=== PATIENT | female | born 1955 | race Caucasian/White ===

== ENCOUNTER 2019-09-20 09:36 | Emergency (ER) | payer BC, SELFPAY ==
--- NOTE | ~2019-09-20 | CT_ITS ---
EXAMINATION: CT lumbar spine wo con DATE: 09/20/2019 10:19 INDICATION: Low back pain TECHNIQUE: Computed tomography (CT) of the lumbar spine was performed without intravenous contrast. T he dose-length product (DLP) was 1084.65 mGy-cm. Iterative reconstruction was used. COMPARISON: MRI, 08/27/2017 FINDINGS: There are changes of posterior fusion at L3-4. There are 6 mm of stable anterolisthesis of L3 on L4. There is chronic severe loss of intervertebral disc space height at T12-L1, L3-4, L4-5, and L5-S1 and moderate loss of disc space height at L1-2 and L2-3. There is no fracture. The vertebral b venkat heights are normal. The prevertebral soft tissues are normal. 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 IMPRESSION: 1. Severe lumbar spondylosis without acute findings or significant interval change. Reviewed, dictated and finalized at location A. EYBALL ASSEMBLER IMPRESSION: 1. Severe lumbar spondylosis without acute findings or significant interval félix nge.
--- NOTE | ~2019-09-20 | XR_ITS ---
EXAMINATION: XR chest 2V DATE: 09/20/2019 10:30 INDICATION: Fall, head injury TECHNIQUE: AP and lateral views of the chest are obtained. COMPARISON: 04/18/2019 FINDINGS: There is mild atelectasis of the left lung base. There is no pleural effusion or pneumothor ax. The cardiomediastinal silhouette is normal. There is severe thoracic spondylosis. There are baumann es of posterior fusion of the lumbar spine as well as left total shoulder arthroplasty. IMPRESSION: 1. No acute cardiopulmonary abnormality. Reviewed, dictated and finalized at location A. UTER SCIENCE TEACHER
--- NOTE | ~2019-09-20 | CT_ITS ---
EXAMINATION: CT brain wo con INDICATION: Head injury COMPARISON: None TECHNIQUE: Standard unenhanced head CT. The dose-length product (DLP) was 605.33 mGy-cm. The mA was a djusted according to patient size. Iterative reconstruction technique was employed. FINDINGS: There is a right parietal scalp hematoma. There is no acute intraparenchymal hemorrhage. No evidence of mass lesion. No evidence of acute infarction. There is mild periventricular and subcorti ari hypodensity probably related to small vessel ischemic disease. There is mild prominence of the castano lci and ventricles related to cerebral atrophy. Intracranial calcified cerebral atherosclerosis is no tu. There are no extra-axial collections. There is no mass effect or midline shift. The orbits and s oft tissues are unremarkable. The visualized sinuses and mastoid air cells are well aerated. IMPRESSION: 1. Right parietal scalp hematoma without acute intracranial abnormality. 2. Age related findings. Reviewed, dictated and finalized at location A. DATION DIRECTOR
--- NOTE | ~2019-09-20 | XR_ITS ---
EXAMINATION: XR hip RT 2V w AP pelvis INDICATION: Right hip pain TECHNIQUE: AP view of the pelvis and three views of the right hip are obtained. COMPARISON: 09/03/2019 FINDINGS: Bone alignment is normal. There is mild osteoarthritis of the hips. No fracture is identifi ed. There are partially imaged changes of lumbar fusion. IMPRESSION: 1. No acute osseous abnormality. Reviewed, dictated and finalized at location A. TATION OPERATOR HELPER
--- NOTE | ~2019-09-20 | CT_ITS ---
EXAMINATION: CT cervical spine wo con DATE: 09/20/2019 10:19 INDICATION: Head injury TECHNIQUE: Computed tomography (CT) of the cervical spine was performed without intravenous contrast. The dose-length product (DLP) was 460.71 mGy-cm. Automated exposure control and iterative reconstruc tion technique were employed. COMPARISON: 07/16/2019 FINDINGS: There is no fracture, dislocation, or subluxation. The vertebral body heights are normal. T here are changes of anterior fusion procedure at C5-6. There is severe loss of intervertebral disc sp suzette height at C6-7 and C7-T1. The odontoid is intact. There is severe uncovertebral joint osteoarthri tis of the lower cervical spine. The prevertebral soft tissues are normal. IMPRESSION: 1. Severe cervical spondylosis without acute findings or significant interval change. Reviewed, dictated and finalized at location A. THERAPIST
[2019-09-20 09:48] LABS: Glucose Point of Care 199 (65-105)
[2019-09-20 09:53] VITALS: BP 158/101; PULSE 88; RESP 16; TEMP 36.2; O2SAT 95
--- NOTE | 2019-09-20 10:01 | ED.AMS ---
HPI - Altered Mental Status General Chief Complaint: Altered Mental Status Stated Complaint: fall/lethargic Time Seen by Provider: 09/20/19 09:43 Related Data Home Medications Medication Instructions Recorded Confirmed alendronate 70 mg tablet 70 mg PO WEEKLY 09/01/19 bupropion HCl 300 mg 24 hr tablet, 300 mg PO QAM 09/01/19 extended release chlorthalidone 25 mg tablet 25 mg PO DAILY 09/01/19 exenatide microspheres 2 mg/0.85 2 mg SUB-Q Q7D 09/01/19 mL subcutaneous auto-injector fluticasone propionate 50 2 spray NASAL DAILY 09/01/19 mcg/actuation nasal spray,suspension gabapentin 300 mg capsule 900 mg PO TID cap 09/01/19 losartan 100 mg tablet 100 mg PO DAILY 09/01/19 paroxetine HCl 40 mg tablet 40 mg PO DAILY 09/01/19 ropinirole 0.5 mg tablet 1 mg PO DAILY tablet 09/01/19 sitagliptin 50 mg-metformin ER 2 tablet PO DAILY tablet 09/01/19 1,000 mg tablet,extended release 24h mp suvorexant 10 mg tablet 10 mg PO ONCE 09/01/19 aspirin [Aspir-81] 09/20/19 Allergies Allergy/AdvReac Type Severity Reaction Status Date / Time adhesive Allergy Intermediate Blister Verified 09/20/19 09:52 benzoin Allergy Intermediate LOCAL Verified 09/20/19 09:52 IRRITATION/ BLISTERS fentanyl Allergy Intermediate Rash Verified 09/20/19 09:52 hydrocodone AdvReac Intermediate Itching Verified 09/20/19 09:52 [facility] Past Medical History Medical History (Updated 09/20/19 @ 09:20 by Valarie Vann NP) Pain of right heel (Acute) Right hip pain (Acute) Scalp cyst (Acute) Small vessel disease (Acute) Social History Social History Smoking status: Never smoker Smoking end date: 10/22/91 Alcohol intake: never Gender identity (if verbalized by the patient): Female Course Vital Signs Vital signs: Vital Signs Temperature 97.2 F L 09/20/19 09:53 Pulse Rate 88 09/20/19 09:53 Respiratory Rate 16 09/20/19 09:53 Blood Pressure 158/101 H 09/20/19 09:53 Pulse Oximetry 95 09/20/19 09:53 Temperature 97.2 F L 09/20/19 09:53 Pulse Rate 88 09/20/19 09:53 Respiratory Rate 16 09/20/19 09:53 Blood Pressure 158/101 H 09/20/19 09:53 Pulse Oximetry 95 09/20/19 09:53 MDM - Altered Mental Status Lab Data Labs: Lab Results 09/20/19 Range/Units 09:45 POC Capillary Glucose 199 H (65-105) mg/dl Discharge Plan Discharge Prescriptions: No Action aspirin [Aspir-81] 81 mg Tablet,Delayed Release (Dr/Ec) RF: 0 chlorthalidone 25 mg tablet 25 mg PO DAILY RF: 0 fluticasone propionate [Flonase Allergy Relief] 50 mcg/actuation spray,suspension 2 spray NASAL DAILY RF: 0 Janumet XR 50-1,000 mg tablet, ER multiphase 24 hr 2 tablet PO DAILY RF: 0 alendronate [Fosamax] 70 mg tablet 70 mg PO WEEKLY RF: 0 paroxetine HCl [Paxil] 40 mg tablet 40 mg PO DAILY RF: 0 losartan 100 mg tablet 100 mg PO DAILY RF: 0 ropinirole 0.5 mg tablet 1 mg PO DAILY RF: 0 Bydureon BCise 2 mg/0.85 mL auto-injector 2 mg SUB-Q Q7D RF: 0 Belsomra 10 mg tablet 10 mg PO ONCE RF: 0 bupropion HCl 300 mg tablet extended release 24 hr 300 mg PO QAM RF: 0 gabapentin 300 mg capsule 900 mg PO TID RF: 0 diclofenac sodium 75 mg tablet,delayed release (DR/EC) 75 mg PO BID Qty: 60 RF: 0 cyclobenzaprine 5 mg tablet 5 mg PO .COMPLEX Qty: 120 RF: 3 oxycodone-acetaminophen 5-325 mg tablet 1 tablet PO Q4H PRN (Reason: pain) Qty: 120 RF: 0
--- NOTE | 2019-09-20 10:02 | ED.FALL ---
HPI - Fall General Chief Complaint: Altered Mental Status Stated Complaint: fall/lethargic Time Seen by Provider: 09/20/19 09:43 Source: patient Mode of arrival: EMS Limitations: no limitations History of Present Illness HPI Narrative: Patient is a 64-year-old female who presents to emergency department for evaluation of head injury that occurred this morning was letting her son's dog out who she lives with tripped falling forward striking the head denies loss of consciousness drove herself to urgent care where she was referred to emergency department for further evaluation patient was placed in C-spine immobilization presents per EMS saline lock left upper extremity. Patient complains of headache neck pain mid and low back pain and right hip pain. Patient denies syncope or loss of consciousness or other complaints. Patient mild pain distress upon arrival resting comfortably though. Patient denies recent illness. Patient has not had anything for her symptoms MD complaint: fall Onset (ago): minute(s) Fall from: standing Fall witnessed: no Place fall occurred: home Loss of consciousness: none Prolonged down time: no Symptoms prior to fall: none Context: tripped/slipped Location of injury: head, back and pelvis Severity: moderate Quality: dull and aching Associated symptoms (after fall): denies, headache and neck pain Related Data Home Medications Medication Instructions Recorded Confirmed alendronate 70 mg tablet 70 mg PO WEEKLY 09/01/19 bupropion HCl 300 mg 24 hr tablet, 300 mg PO QAM 09/01/19 extended release chlorthalidone 25 mg tablet 25 mg PO DAILY 09/01/19 exenatide microspheres 2 mg/0.85 2 mg SUB-Q Q7D 09/01/19 mL subcutaneous auto-injector fluticasone propionate 50 2 spray NASAL DAILY 09/01/19 mcg/actuation nasal spray,suspension gabapentin 300 mg capsule 900 mg PO TID cap 09/01/19 losartan 100 mg tablet 100 mg PO DAILY 09/01/19 paroxetine HCl 40 mg tablet 40 mg PO DAILY 09/01/19 ropinirole 0.5 mg tablet 1 mg PO DAILY tablet 09/01/19 sitagliptin 50 mg-metformin ER 2 tablet PO DAILY tablet 09/01/19 1,000 mg tablet,extended release 24h mp suvorexant 10 mg tablet 10 mg PO ONCE 09/01/19 aspirin [Aspir-81] 09/20/19 cyclobenzaprine 5 mg PO QID 09/20/19 omeprazole 40 mg PO DAILY 09/20/19 09/20/19 Allergies Allergy/AdvReac Type Severity Reaction Status Date / Time adhesive Allergy Intermediate Blister Verified 09/20/19 09:52 benzoin Allergy Intermediate LOCAL Verified 09/20/19 09:52 IRRITATION/ BLISTERS fentanyl Allergy Intermediate Rash Verified 09/20/19 09:52 hydrocodone AdvReac Intermediate Itching Verified 09/20/19 09:52 Review of Systems Review of Systems: Narrative: CONSTITUTIONAL: Denies fever, chills, or sweats. EYES: Denies visual changes, redness, or discharge. ENT: Denies rhinorrhea, congestion, sore throat, or otalgia. CARDIOVASCULAR: Denies chest pain, palpitations, or edema. RESPIRATORY: Denies cough or dyspnea. GASTROINTESTINAL: Denies abdominal pain, nausea, vomiting, rectal bleeding, melena or diarrhea. GENITOURINARY: Denies dysuria or hematuria. SKIN: Denies bruising or swelling MUSCULOSKELETAL: Denies back pain, joint pain, or myalgia. NEUROLOGIC: Denies numbness, dizziness, or weakness. [facility] Past Medical History Medical History Pain of right heel (Acute) Right hip pain (Acute) Scalp cyst (Acute) Small vessel disease (Acute) Family History Family History Father Hypertension Malignant neoplasm of prostate Family history of heart disease in male family member before age 55 Mother Hypertension Family history of diabetes mellitus in first degree relative Family history of heart disease in male family member before age 55 Other Diabetes mellitus Family history of arthritis Family history of cardiovascular disease Family history
[2019-09-20 10:41] LABS: Basophils Absolute Auto 0.1 K/mm3 (0.0-0.1); Basophils Percent Auto 1.1 % (0.2-1.2); Eosinophils Absolute Auto 0.3 K/mm3 (0-0.3); Eosinophils Percent Auto 2.7 % (0-4.4); Hematocrit 40.1 % (37.0-47.0); Hemoglobin 12.5 g/dL (12.0-15.0); Immature Granulocyte Absolute 0.21 K/mm3 (0.00-0.031); Immature Granulocyte Percent A 2.3 % (0-0.5); Lymphocytes Absolute Auto 0.88 K/mm3 (0.9-3.2); Lymphocytes Percent Auto 9.7 % (18.3-44.2); Mean Corpuscular HGB Conc 31.2 g/dl (32-36); Mean Corpuscular Hemoglobin 28.3 pg (26-34); Mean Corpuscular Volume 90.9 fl (80-100); Mean Platelet Volume 9.5 fl (7.4-10.4); Monocytes Absolute Auto 0.6 K/mm3 (0.1-0.6); Monocytes Percent Auto 6.7 % (2.6-8.5); Neutrophils Absolute Auto 7.1 K/mm3 (1.3-6.7); Neutrophils Percent Auto 77.5 % (45.5-73.1); Platelet Count Result 420 k/mm3 (150-375); Red Blood Count 4.41 M/mm3 (4.2-5.4); Red Cell Distribution Width 14.7 % (11.5-14.5); White Blood Count 9.1 K/mm3 (4.5-10.0)
[2019-09-20] MEDS: SODIUM CHLORIDE 0.9% IV 1,000 ML 999 ML IV CONT (10:51)
[2019-09-20 10:53] LABS: Alanine Aminotransferase 32 U/L (4-35); Albumin Level 3.6 g/dL (3.5-5.1); Alkaline Phosphatase 80 U/L (38-126); Aspartate Amino Transferase 35 U/L (14-36); Bilirubin,Total 0.2 mg/dL (0.2-1.3); Blood Urea Nitrogen 12 mg/dL (7-17); Calcium 8.4 mg/dL (8.4-10.2); Carbon Dioxide 24 mmol/L (22-30); Chloride 103 mmol/L (98-107); Estimated Glomerular Filt Rate > 60; Glucose 206 mg/dL (65-105); Potassium 3.9 mmol/L (3.4-5.0); Sodium 134 mmol/L (137-145)
--- NOTE | 2019-09-20 11:31 | ECG_ITS ---
Measurements Intervals [place] Rate: 86 P: 20 SC: 176 QRS: -15 QRSD: 90 T: 11 QT: 361 QTc: 433 Interpretive Statements SINUS RHYTHM LOW QRS VOLTAGE IN PRECORDIAL LEADS VOLTAGE CRITERIA FOR LVH BORDERLINE T WAVE ABNORMALITY- INFERIOR LEADS BORDERLINE ECG Electronically Signed On 09-21-2019 9:04:24 IPHONE DEVELOPER by Alex Steen D.O.
[2019-09-20 12:09] LABS: Add Urine Microscopic? NO; Appearance Urine Clear (Clear); Bilirubin Urine Negative (Negative); Blood Urine Negative (Negative); Color Urine Colorless (Yellow); Glucose Urine UA Negative (Negative); Ketones Urine Negative (Negative); Leukocyte Esterase Ur Negative LEU/UL (Negative); Nitrate Urine Negative (Negative); Protein Urine Negative (Negative); Specific Grav Ur 1.005 (1.001-1.035); Urobilinogen Urine Negative mg/dL (<2.0)
[2019-09-20 14:28] VITALS: BP 143/82; PULSE 90; RESP 18; O2SAT 100
== END 2019-09-20 14:30 | disposition home or self-care (01) ==
PROVIDERS: Emergency Medicine Emergency Medical Services; Emergency Provider Emergency Medicine; PCP Family Medicine
DX: S09.90XA Unspecified injury of head, initial encounter (principal); S16.1XXA Strain of muscle, fascia and tendon at neck level, initial encounter; S39.012A Strain of muscle, fascia and tendon of lower back, initial encounter; M47.812 Spondylosis without myelopathy or radiculopathy, cervical region; M47.816 Spondylosis without myelopathy or radiculopathy, lumbar region; W01.0XXA Fall on same level from slipping, tripping and stumbling without subsequent striking against object, initial encounter
CPT/HCPCS: 36415; 70450; 71046; 72125; 72131; 73502; 73521; 80053; 81003; 85025; 93005; 96361; 96365; 99284; J0131; J7030

== ENCOUNTER 2020-03-26 11:57 | Outpatient (CLI) | payer BC, SELFPAY ==
[2020-03-26 12:26] LABS: Basophils Absolute Auto 0.2 K/mm3 (0.0-0.1); Basophils Percent Auto 1.6 % (0.2-1.2); Eosinophils Absolute Auto 0.7 K/mm3 (0-0.3); Hematocrit 39.8 % (37.0-47.0); Hemoglobin 12.3 g/dL (12.0-15.0); Immature Granulocyte Absolute 0.12 K/mm3 (0.00-0.031); Immature Granulocyte Percent A 1.2 % (0-0.5); Lymphocytes Absolute Auto 1.68 K/mm3 (0.9-3.2); Lymphocytes Percent Auto 16.5 % (18.3-44.2); Mean Corpuscular HGB Conc 30.9 g/dl (32-36); Mean Corpuscular Volume 87.5 fl (80-100); Mean Platelet Volume 9.3 fl (7.4-10.4); Monocytes Percent Auto 9.3 % (2.6-8.5); Neutrophils Absolute Auto 6.6 K/mm3 (1.3-6.7); Neutrophils Percent Auto 64.4 % (45.5-73.1); Platelet Count Result 483 k/mm3 (150-375); Red Blood Count 4.55 M/mm3 (4.2-5.4); Red Cell Distribution Width 16.2 % (11.5-14.5); White Blood Count 10.2 K/mm3 (4.5-10.0)
[2020-03-26 12:43] LABS: Blood Urea Nitrogen 10 mg/dL (7-17); Calcium 9.8 mg/dL (8.4-10.2); Carbon Dioxide 30 mmol/L (22-30); Chloride 101 mmol/L (98-107); Estimated Glomerular Filt Rate > 60; Glucose 168 mg/dL (65-105); Magnesium 1.7 mg/dL (1.6-2.3); Potassium 5.3 mmol/L (3.4-5.0); Sodium 135 mmol/L (137-145)
[2020-03-26 13:14] LABS: Thyroid Stimulating Hormone 0.722 uIU/mL (0.465-4.680)
== END 2020-03-26 11:58 | disposition home or self-care (01) ==
LOC: ANHLAB 11:58
PROVIDERS: PCP Family Medicine; Visit Provider Family Medicine
DX: R25.2 Cramp and spasm (principal); D64.9 Anemia, unspecified; F41.9 Anxiety disorder, unspecified; F32.9 Major depressive disorder, single episode, unspecified
CPT/HCPCS: 36415; 80048; 83735; 84443; 85025

== ENCOUNTER 2020-03-30 15:56 | Outpatient (CLI) | payer BC, SELFPAY ==
[2020-03-30 16:19] LABS: Hematocrit 41.1 % (37.0-47.0); Hemoglobin 12.8 g/dL (12.0-15.0); Mean Corpuscular HGB Conc 31.1 g/dl (32-36); Mean Corpuscular Hemoglobin 27.2 pg (26-34); Mean Corpuscular Volume 87.3 fl (80-100); Mean Platelet Volume 9.3 fl (7.4-10.4); Platelet Count Result 494 k/mm3 (150-375); Red Blood Count 4.71 M/mm3 (4.2-5.4); Red Cell Distribution Width 16.1 % (11.5-14.5); White Blood Count 9.3 K/mm3 (4.5-10.0)
[2020-03-30 16:32] LABS: Blood Urea Nitrogen 13 mg/dL (7-17); Carbon Dioxide 25 mmol/L (22-30); Chloride 102 mmol/L (98-107); Estimated Glomerular Filt Rate > 60; Glucose 163 mg/dL (65-105); Potassium 4.3 mmol/L (3.4-5.0); Sodium 135 mmol/L (137-145)
== END 2020-03-30 15:57 | disposition home or self-care (01) ==
PROVIDERS: PCP Family Medicine; Visit Provider Nurse Practitioner Family
DX: E87.5 Hyperkalemia (principal); D72.829 Elevated white blood cell count, unspecified
CPT/HCPCS: 36415; 80048; 85027

== ENCOUNTER 2020-04-09 09:06 | Outpatient (CLI) | payer BC, SELFPAY ==
[2020-04-09 09:32] LABS: Basophils Absolute Auto 0.1 K/mm3 (0.0-0.1); Basophils Percent Auto 1.1 % (0.2-1.2); Eosinophils Absolute Auto 0.4 K/mm3 (0-0.3); Eosinophils Percent Auto 3.8 % (0-4.4); Hematocrit 38.8 % (37.0-47.0); Hemoglobin 12.2 g/dL (12.0-15.0); Immature Granulocyte Absolute 0.09 K/mm3 (0.00-0.031); Immature Granulocyte Percent A 0.9 % (0-0.5); Lymphocytes Absolute Auto 1.31 K/mm3 (0.9-3.2); Lymphocytes Percent Auto 13.7 % (18.3-44.2); Mean Corpuscular HGB Conc 31.4 g/dl (32-36); Mean Corpuscular Hemoglobin 27.4 pg (26-34); Mean Corpuscular Volume 87.2 fl (80-100); Mean Platelet Volume 9.7 fl (7.4-10.4); Monocytes Absolute Auto 0.8 K/mm3 (0.1-0.6); Monocytes Percent Auto 8.2 % (2.6-8.5); Neutrophils Absolute Auto 6.9 K/mm3 (1.3-6.7); Neutrophils Percent Auto 72.3 % (45.5-73.1); Platelet Count Result 416 k/mm3 (150-375); Red Blood Count 4.45 M/mm3 (4.2-5.4); Red Cell Distribution Width 15.4 % (11.5-14.5); White Blood Count 9.6 K/mm3 (4.5-10.0)
[2020-04-09 09:50] LABS: Blood Urea Nitrogen 14 mg/dL (7-17); Calcium 9.2 mg/dL (8.4-10.2); Carbon Dioxide 27 mmol/L (22-30); Chloride 102 mmol/L (98-107); Estimated Glomerular Filt Rate > 60; Glucose 212 mg/dL (65-105); Potassium 4.2 mmol/L (3.4-5.0); Sodium 134 mmol/L (137-145)
== END 2020-04-09 09:07 | disposition home or self-care (01) ==
LOC: ANHLAB 09:09
PROVIDERS: PCP Family Medicine; Visit Provider Nurse Practitioner Family
DX: E87.1 Hypo-osmolality and hyponatremia (principal); R79.89 Other specified abnormal findings of blood chemistry
CPT/HCPCS: 36415; 80048; 85025

== ENCOUNTER 2020-04-29 15:49 | Outpatient (CLI) | payer BC, SELFPAY ==
[2020-04-29 16:30] LABS: Blood Urea Nitrogen 16 mg/dL (7-17); Calcium 8.4 mg/dL (8.4-10.2); Carbon Dioxide 25 mmol/L (22-30); Chloride 102 mmol/L (98-107); Estimated Glomerular Filt Rate > 60; Glucose 191 mg/dL (65-105); Potassium 4.2 mmol/L (3.4-5.0); Sodium 134 mmol/L (137-145)
== END 2020-04-29 15:50 | disposition home or self-care (01) ==
LOC: ANHLAB 15:50
PROVIDERS: PCP Family Medicine; Visit Provider Nurse Practitioner Family
DX: E87.1 Hypo-osmolality and hyponatremia (principal)
CPT/HCPCS: 36415; 80048

== ENCOUNTER 2020-07-30 11:18 | Emergency (ER) | payer BC, SELFPAY ==
--- NOTE | ~2020-07-30 | XR_ITS ---
XR finger 4th RT min 2V DATE: 07/30/2020 11:41 INDICATION: Injury one month ago. Reinjury yesterday. Pain at proximal interphalangeal joint. TECHNIQUE: 4 views COMPARISON: None FINDINGS: There is soft tissue swelling centered at the proximal interphalangeal joint. There is joint space narrowing and mild spurring at the proximal interphalangeal joint consistent wit h osteoarthritis, as well as a probable degenerative ossicle at the dorsal aspect of the proximal int erphalangeal joint. Several very subtle opaque densities are noted dorsal to the base of the middle phalanx; very small c ortical avulsion fracture is not excluded. No fracture or dislocation, periosteal reaction or bone destruction. IMPRESSION: Soft tissue swelling centered at proximal interphalangeal joint Several very small flakes of density noted dorsal to the base of the middle phalanx; very small corti ari avulsion fracture is not excluded. 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 IMPRESSION: Soft tissue swelling centered at proximal interphalangeal joint Several very small flakes of density noted dorsal to the base of the middle pha lanx; very small cortical avulsion fracture is not excluded. 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
[2020-07-30 11:28] VITALS: BP 140/80; PULSE 101; RESP 20; TEMP 36.7; O2SAT 101
[2020-07-30 11:30] VITALS: BP 118/70; PULSE 100; RESP 20; O2SAT 97
--- NOTE | 2020-07-30 11:31 | ED.GENADULT ---
HPI - General Adult General Chief complaint: Wound/Laceration Stated complaint: right ring finger injury Time Seen by Provider: 07/30/20 11:32 Source: patient Mode of arrival: ambulatory Limitations: no limitations History of Present Illness HPI narrative: Patient is a 64-year-old female who presents with pain to right fourth finger. She reports injuring while carrying garbage can approximately 3 weeks ago and reports reinjury yesterday. She reports pain and swelling. Denies other injury. Reports pain of 7/10 with movement. She denies taking [id number] medications at this time for pain. complaint: Finger injury Related Data Home Medications Medication Instructions Recorded Confirmed aspirin [Aspir-81] 09/20/19 07/01/20 Allergies Allergy/AdvReac Type Severity Reaction Status Date / Time adhesive Allergy Intermediate Blister Verified 07/30/20 11:58 benzoin Allergy Intermediate LOCAL Verified 07/30/20 11:58 IRRITATION/ BLISTERS fentanyl Allergy Intermediate Rash Verified 07/30/20 11:58 hydrocodone AdvReac Intermediate Itching Verified 07/30/20 11:58 Review of Systems Review of Systems: Narrative: CONSTITUTIONAL: Denies fever, chills, or sweats. EYES: Denies visual changes, redness, or discharge. ENT: Denies rhinorrhea, congestion, sore throat, or otalgia. CARDIOVASCULAR: Denies chest pain, palpitations, or edema. RESPIRATORY: Denies cough or dyspnea. GASTROINTESTINAL: Denies abdominal pain, nausea, vomiting, or diarrhea. GENITOURINARY: Denies dysuria or hematuria. SKIN: Denies rash or itching. MUSCULOSKELETAL: Right ring finger pain, swelling, injury NEUROLOGIC: Denies headache, numbness, dizziness, or weakness. PSYCHIATRIC: Denies anxiety or depression. [facility] Past Medical History Medical History (Updated 07/30/20 @ 12:04 by STAN Magallon) Achilles tendinitis of right lower extremity Exostosis of right posterior calcaneus Leg cramping Pain of right heel Restless leg Right hip pain Scalp cyst Small vessel disease Trigger finger of right hand Surgical History Surgical History Achilles rupture, right (10/09/19) Family History Family History Father Hypertension Malignant neoplasm of prostate Family history of heart disease in male family member before age 55 Mother Hypertension Family history of diabetes mellitus in first degree relative Family history of heart disease in male family member before age 55 Other Diabetes mellitus Family history of arthritis Family history of cardiovascular disease Family history of gout Family history of malignant neoplasm Social History Social History (Updated 07/30/20 @ 11:35 by STAN Magallon) Smoking status: Former smoker Smoking end date: 10/22/91 Alcohol intake: never Substance use: never Gender identity (if verbalized by the patient): Female Exam Narrative: Exam Narrative: GENERAL: Well-appearing, well-nourished, and in no acute distress. HEAD: Normocephalic, atraumatic. EYES: EOMI. No redness or drainage. ENT: Mucous membranes pink and moist. CHEST: No respiratory distress. Clear to auscultation. HEART: Regular rate and rhythm. No murmur appreciated. Normal peripheral pulses. EXTREMITIES: Right fourth finger edema, decreased flexion and extension, pain with palpation, good capillary refill SKIN: Warm, dry, no rash. NEURO: No focal deficits. Alert and oriented x3. Gait steady. PSYCH: Normal affect. No signs of depression or anxiety. Course Vital Signs Vital signs: Vital Signs Temperature 36.7 C 07/30/20 11:28 Pulse Rate 101 H 07/30/20 11:28 Respiratory Rate 07/30/20 11:28 Blood Pressure 140/80 07/30/20 11:28 Pulse Oximetry 101 H 07/30/20 11:28 Temperature 36.7 C 07/30/20 11:28 Pulse Rate 101 H 07/30/20 11:28 Respiratory Rate 20 07/30/20 11:28 B
== END 2020-07-30 12:12 | disposition home or self-care (01) ==
PROVIDERS: Emergency Provider Nurse Practitioner; PCP Family Medicine
DX: S63.614A Unspecified sprain of right ring finger, initial encounter (principal); X58.XXXA Exposure to other specified factors, initial encounter; M19.041 Primary osteoarthritis, right hand; Z87.891 Personal history of nicotine dependence
CPT/HCPCS: 29130; 73140; 99213; G0463

== ENCOUNTER 2020-09-25 09:30 | Outpatient (CLI) | payer BC, SELFPAY ==
[2020-09-25 10:38] LABS: Vitamin D 25 Hydroxy 47.3 ng/mL
== END 2020-09-25 09:31 | disposition home or self-care (01) ==
LOC: ANHLAB 09:31
PROVIDERS: PCP Family Medicine; Visit Provider Nurse Practitioner Family
DX: E55.9 Vitamin D deficiency, unspecified (principal); E53.8 Deficiency of other specified B group vitamins
CPT/HCPCS: 36415; 82306; 82607

== ENCOUNTER 2020-10-01 12:27 | Emergency (ER) | payer BC, SELFPAY ==
[2020-10-01] VITALS (7 sets, daily range): BP systolic 99–149; BP diastolic 62–81; PULSE 91–110; RESP 15–21; TEMP 36.6; O2SAT 95–99
--- NOTE | ~2020-10-01 | XR_ITS ---
EXAMINATION: XR chest 1V portable DATE: 10/01/2020 13:37 INDICATION: Productive cough. TECHNIQUE: A single frontal view of the chest was obtained. COMPARISON: Chest 2 views 09/20/2019 FINDINGS: The lung volumes are small. There is mild atelectasis in the lower lung zones. No pleural e ffusion or pneumothorax. The heart size is normal. There are changes of anterior fusion procedure in cervical spine. There is a left shoulder arthroplasty. IMPRESSION: 1. Small lung volumes with mild atelectasis in the lower lung zones. Reviewed, dictated and finalized at location B. PROCESS MILLER HEAD ASSISTANT
--- NOTE | 2020-10-01 12:34 | ECG_ITS ---
Measurements Intervals [place] Rate: 106 P: 25 IA: 159 QRS: -22 QRSD: 83 T: 37 QT: 327 QTc: 435 Interpretive Statements SINUS TACHYCARDIA LOW QRS VOLTAGE IN PRECORDIAL LEADS BORDERLINE R WAVE PROGRESSION, ANTERIOR LEADS BASELINE ARTIFACT- I, III, AVL, V6 ABNORMAL ECG Electronically Signed On 10-01-2020 12:55:04 BELT LOOP CUTTER by Alex Steen D.O.
[2020-10-01 13:02] LABS: Basophils Absolute Auto 0.1 K/mm3 (0.0-0.1); Basophils Percent Auto 0.4 % (0.2-1.2); Eosinophils Absolute Auto 0.2 K/mm3 (0-0.3); Eosinophils Percent Auto 0.7 % (0-4.4); Hematocrit 38.9 % (37.0-47.0); Hemoglobin 12.4 g/dL (12.0-15.0); Immature Granulocyte Percent A 0.8 % (0-0.5); Lymphocytes Absolute Auto 1.54 K/mm3 (0.9-3.2); Lymphocytes Percent Auto 5.9 % (18.3-44.2); Mean Corpuscular HGB Conc 31.9 g/dl (32-36); Mean Corpuscular Hemoglobin 26.3 pg (26-34); Mean Corpuscular Volume 82.4 fl (80-100); Mean Platelet Volume 10.1 fl (7.4-10.4); Monocytes Absolute Auto 1.4 K/mm3 (0.1-0.6); Monocytes Percent Auto 5.3 % (2.6-8.5); Neutrophils Absolute Auto 22.7 K/mm3 (1.3-6.7); Neutrophils Percent Auto 86.9 % (45.5-73.1); Platelet Count Result 516 k/mm3 (150-375); Red Blood Count 4.72 M/mm3 (4.2-5.4); Red Cell Distribution Width 14.7 % (11.5-14.5); White Blood Count 26.1 K/mm3 (4.5-10.0)
[2020-10-01 13:14] LABS: Anion Gap 8 mmol/L (8-16); Blood Urea Nitrogen 12 mg/dL (7-17); Calcium 9.3 mg/dL (8.4-10.2); Carbon Dioxide 25 mmol/L (22-30); Chloride 102 mmol/L (98-107); Estimated CRCL calculation 102 ml/min; Estimated Glomerular Filt Rate > 60; Glucose 185 mg/dL (65-105); Potassium 4.4 mmol/L (3.4-5.0); Sodium 135 mmol/L (137-145)
[2020-10-01 13:55] LABS: Alveolar/Arterial O2 Gradient 38.4 mmHg; Base Excess ABG -1.7 mEq/l (+/-2.0); Device ROOM AIR; Fractional Inspired Oxygen 21 %; HCO3 ABG 21.2 mEq/l (22.0-26.0); Modified Allen's Test Pass; Oxygen Content ABG 16.1 %vol (16.0-22.0); Oxygen Saturation ABG 95.9 % (95.0-100.0); PCO2 ABG 30.3 mmHg (35.0-45.0); PO2 FiO2 Ratio Arterial Blood 3.57 %; Site Drawn RIGHT RADIAL; Total Hemoglobin 12.3 g/dL (12.0-18.0); pH ABG 7.462 (7.350-7.450)
[2020-10-01 14:33] LABS: Alanine Aminotransferase 43 U/L (4-35); Alkaline Phosphatase 78 U/L (38-126); Aspartate Amino Transferase 36 U/L (14-36); Bilirubin,Total 0.4 mg/dL (0.2-1.3)
[2020-10-01 14:54] LABS: Add Urine Microscopic? YES; Appearance Urine Clear (Clear); Bacteria Urine Trace /hpf; Bilirubin Urine Negative (Negative); Blood Urine Negative (Negative); Color Urine Straw (Yellow); Glucose Urine UA Negative (Negative); Ketones Urine Negative (Negative); Leukocyte Esterase Ur Trace LEU/UL (Negative); Nitrate Urine Positive (Negative); Protein Urine Negative (Negative); RBC Urine 0-2 /hpf (0-2); Specific Grav Ur 1.006 (1.001-1.035); Squamous Epithelial Cell Urine Rare /hpf (Few); Urobilinogen Urine Negative mg/dL (<2.0)
--- NOTE | 2020-10-01 16:15 | ED.GENADULT ---
HPI - General Adult General Chief complaint: Shortness of Breath/Dyspnea Stated complaint: SOB Time Seen by Provider: 10/01/20 13:30 Source: patient Limitations: no limitations History of Present Illness HPI narrative: 65 years old white female woke up this morning with gasping for air, sore throat and chest hurting. Improved over the following hours. Patient had COVID-19 exposure 45 days ago. Currently patient denying any chest pain, shortness of breath, fever, chills, headache. Patient lives alone Related Data Home Medications Medication Instructions Recorded Confirmed aspirin [Aspir-81] 09/20/19 09/24/20 Allergies Allergy/AdvReac Type Severity Reaction Status Date / Time adhesive Allergy Intermediate Blister Verified 09/24/20 11:29 benzoin Allergy Intermediate LOCAL Verified 09/24/20 11:29 IRRITATION/ BLISTERS fentanyl Allergy Intermediate Rash Verified 09/24/20 11:29 hydrocodone AdvReac Intermediate Itching Verified 09/24/20 11:29 Review of Systems Review of Systems: Narrative: CONSTITUTIONAL: Denies fever, chills, or sweats. EYES: Denies visual changes, redness, or discharge. ENT: Denies rhinorrhea, congestion, sore throat, or otalgia. CARDIOVASCULAR: Denies chest pain, palpitations, or edema. RESPIRATORY: Denies cough or dyspnea. GASTROINTESTINAL: Denies abdominal pain, nausea, vomiting, or diarrhea. GENITOURINARY: Denies dysuria or hematuria. SKIN: Denies rash or itching. MUSCULOSKELETAL: Denies back pain, joint pain, or myalgia. NEUROLOGIC: Denies headache, numbness, or weakness. PSYCHIATRIC: Denies anxiety or depression. [facility] Past Medical History Medical History (Updated 10/01/20 @ 16:28 by Jordan Shukla MD) Achilles tendinitis of right lower extremity Exostosis of right posterior calcaneus Leg cramping Pain of right heel Restless leg Right hip pain Scalp cyst Small vessel disease Trigger finger of right hand Surgical History Surgical History Achilles rupture, right (10/09/19) Family History Family History Father Hypertension Malignant neoplasm of prostate Family history of heart disease in male family member before age 55 Mother Hypertension Family history of diabetes mellitus in first degree relative Family history of heart disease in male family member before age 55 Other Diabetes mellitus Family history of arthritis Family history of cardiovascular disease Family history of gout Family history of malignant neoplasm Social History Social History Smoking status: Former smoker Smoking end date: 10/22/91 Alcohol intake: never Substance use: never Gender identity (if verbalized by the patient): Female Exam Narrative: Exam Narrative: General appearance: Well-developed, well-nourished, looks lethargic. Does not look in pain or distress. Skin: Normal color Head: Normocephalic, nontraumatic Eyes: Clear conjunctiva ENT: Oropharynx normal, ears normal, nose normal Neck: Supple, nontender Chest and respiratory: Airway patent, no respiratory distress, no accessory muscle use Heart: Regular rate/rhythm Abdomen: Soft, nontender, no organomegaly, quiet bowel sounds Vascular: Normal peripheral pulses, normal capillary refill. Musculoskeletal: Normal range of motion, nontender back Neurologic: Alert and oriented ?3, MORTGAGE CLOSER is normal as tested, no gross motor deficit Course Course Emergency Course: Improving Vital Signs Vital signs: Vital Signs Temperature 36.6 C 10/01/20 12:31 Pulse Rate 110 H 10/01/20 12:31 Respirat
[2020-10-01 23:21] LABS: SARS-CoV-2 RNA PCR Negative
== END 2020-10-01 16:38 | disposition home or self-care (01) ==
PROVIDERS: Emergency Provider Emergency Medicine; PCP Family Medicine
DX: B34.9 Viral infection, unspecified (principal); N39.0 Urinary tract infection, site not specified; Z20.828 Contact with and (suspected) exposure to other viral communicable diseases; D72.829 Elevated white blood cell count, unspecified; R00.0 Tachycardia, unspecified; R94.31 Abnormal electrocardiogram [ECG] [EKG]; G25.81 Restless legs syndrome; Z87.891 Personal history of nicotine dependence
CPT/HCPCS: 36415; 36600; 71045; 80048; 80076; 81001; 82805; 85025; 87040; 87635; 93005; 96365; 99284; C9803; J0696; U0003

== ENCOUNTER 2020-12-29 15:29 | Outpatient (CLI) | payer OTHER, SELFPAY | END 2020-12-29 15:30 | disposition home or self-care (01) | LOC: ANHCOVIDVC 15:29 | PROVIDERS: PCP Family Medicine | DX: Z23 Encounter for immunization (principal) | CPT/HCPCS: 0001A; 91300 ==

== ENCOUNTER 2021-01-19 15:35 | Outpatient (CLI) | payer OTHER, SELFPAY | END 2021-01-19 15:36 | disposition home or self-care (01) | LOC: ANHCOVIDVC 15:35 | PROVIDERS: PCP Family Medicine | DX: Z23 Encounter for immunization (principal) | CPT/HCPCS: 0002A; 91300 ==

== ENCOUNTER 2021-02-14 15:48 | Outpatient (CLI) | payer OTHER, SELFPAY ==
[2021-02-14 16:20] LABS: Anion Gap 9 mmol/L (8-16); Blood Urea Nitrogen 15 mg/dL (7-17); Calcium 8.9 mg/dL (8.4-10.2); Carbon Dioxide 24 mmol/L (22-30); Chloride 100 mmol/L (98-107); Cholesterol 127 mg/dL (0-200); Estimated Glomerular Filt Rate > 60; Glucose 239 mg/dL (65-105); HDL Direct 58 mg/dL; Potassium 4.4 mmol/L (3.4-5.0); Sodium 133 mmol/L (137-145); Triglycerides 243 mg/dL (<150)
[2021-02-14 16:31] LABS: LDL Cholesterol Direct 40 mg/dL
[2021-02-14 16:35] LABS: Hemoglobin A1C 8.2 % (<5.7)
[2021-02-14 17:04] LABS: Creatinine Urine 25.9 mg/dL
[2021-02-14 17:09] LABS: MALB Creatinine Ratio < 23.2 mg/g (0-30); Microalbumin Urine Random < 6.0 mg/L (0-16.7)
== END 2021-02-14 15:49 | disposition home or self-care (01) ==
LOC: ANHLAB 15:50
PROVIDERS: PCP Family Medicine; Visit Provider Family Medicine
DX: E11.42 Type 2 diabetes mellitus with diabetic polyneuropathy (principal); Z13.220 Encounter for screening for lipoid disorders
CPT/HCPCS: 36415; 80048; 80061; 82043; 83036

== ENCOUNTER → 2021-02-18 02:31 | Outpatient (CLI) | payer OTHER, SELFPAY ==
[2021-02-18 19:12] LABS: SARS-CoV-2 RNA PCR Negative
== END ==
PROVIDERS: PCP Family Medicine; Visit Provider Internal Medicine Gastroenterology
DX: Z01.812 Encounter for preprocedural laboratory examination (principal); Z20.822 Contact with and (suspected) exposure to COVID-19
CPT/HCPCS: C9803; U0003; U0005

== ENCOUNTER 2021-02-21 02:20 | Day surgery (SDC) | payer OTHER, SELFPAY ==
[2021-02-15 08:30] VITALS: BMI 30.3
[2021-02-21 07:29] VITALS: BP 158/87; PULSE 100; RESP 20; TEMP 36.1; O2SAT 96; BMI 29.2
[2021-02-21] MEDS: LACTATED RINGERS 1,000 ML 150 ML IV CONT (07:49)
--- NOTE | 2021-02-21 07:49 | WPDANESEPPF ---
Anes - Initial Pre Proc Eval Procedure: Operation Date: 02/21/21 08:30 Proposed Procedures p Colonoscopy - Curt Cadet MD Date/Time: 02/21/21 07:49 Surgeon: Curt Cadet MD Pre Op Diagnosis: ibsd, fecal incontinence Patient Data Age: 65 Gender: F Height: 5 ft 5 in Weight: 79.9 kg Last Vital Signs Temp 36.1 C L 02/21/21 07:29 Pulse 100 02/21/21 07:29 Resp 20 02/21/21 07:29 BP 158/87 H 02/21/21 07:29 Pulse Ox 96 02/21/21 07:29 Allergies Allergy/AdvReac Type Severity Reaction Status Date / Time adhesive Allergy Intermediate Blister Verified 02/21/21 07:26 benzoin Allergy Intermediate LOCAL Verified 02/21/21 07:26 IRRITATION/ BLISTERS fentanyl Allergy Intermediate Rash Verified 02/21/21 07:26 hydrocodone AdvReac Intermediate Itching Verified 02/21/21 07:26 Home Medications Medication Instructions Recorded Confirmed Type aspirin [Aspir-81] 81 mg PO DAILY 09/20/19 02/18/21 History clotrimazole-betamethasone 1 1 applic TOPICAL BID #45 gm 07/16/20 02/18/21 Rx %-0.05 % topical cream diclofenac sodium 1 % topical gel 2 g TOPICAL BID PRN #100 g 09/24/20 02/18/21 Rx omeprazole 40 mg capsule,delayed See Rx Instructions .ROUTE 10/03/20 02/18/21 Rx release .COMPLEX #90 cap fluticasone propionate 50 See Rx Instructions .ROUTE 10/08/20 02/18/21 Rx mcg/actuation nasal .COMPLEX #16 gram spray,suspension sitagliptin 50 mg-metformin ER 2 tablet PO DAILY #180 tablet 11/19/20 02/18/21 Rx 1,000 mg tablet,extended release 24h mp bupropion HCl 300 mg 24 hr tablet, 300 mg PO QAM #90 tablet 11/24/20 02/18/21 Rx extended release losartan 100 mg tablet 100 mg PO DAILY #90 tablet 11/24/20 02/18/21 Rx rosuvastatin 20 mg tablet 20 mg PO DAILY #90 tablet 11/24/20 02/18/21 Rx gabapentin 300 mg capsule 900 mg PO BID #810 cap 12/13/20 02/18/21 Rx ertugliflozin 5 mg tablet 5 mg PO QAM #90 tablet 01/28/21 02/18/21 Rx sumatriptan succinate 50 mg tablet See Rx Instructions PO .COMPLEX #9 02/14/21 02/18/21 Rx tablet ropinirole 1 mg tablet 1 mg PO TID #270 tablet 02/16/21 02/18/21 Rx diclofenac sodium 75 mg 75 mg PO BID #180 tablet 02/17/21 02/18/21 Rx tablet,delayed release amlodipine 5 mg tablet See Rx Instructions .ROUTE 02/18/21 02/18/21 Rx .COMPLEX #90 tablet cyclobenzaprine 5 mg tablet 5 mg PO QID #120 tablet 02/18/21 02/18/21 Rx oxycodone-acetaminophen 5 mg-325 1 tablet PO Q4-6H PRN #150 tablet 02/18/21 02/18/21 Rx mg tablet paroxetine HCl 40 mg tablet 40 mg PO DAILY #90 tablet 02/18/21 02/18/21 Rx sitagliptin 100 mg tablet 100 mg PO DAILY 02/18/21 02/18/21 History Patient hx anesthesia problems: other (low o2) Family hx anesthesia problems: none PMFSH Past Medical History Medical History Achilles tendinitis of right lower extremity Anxiety and depression BMI 29.0-29.9,adult BMI 31.0-31.9,adult Essential (primary) hypertension Exostosis of right posterior calcaneus Irritable bowel syndrome with diarrhea Left shoulder pain Leg cramping Mixed hyperlipidemia Neuropathy Pain of right heel Restless leg Right hip pain Scalp cyst Screening mammogram, encounter for Small vessel disease Trigger finger of right hand Type 2 diabetes mellitus without complications Surgical History Surgical History Achilles rupture, right (10/09/19) Family History Family History Father Hypertension Malignant neoplasm of prostate Family history of heart disease in male family member before age 55 Mother Hypertension Family history of diabetes mellitus in first degree relative Family history of heart disease in male family member before age 55 Other Diabetes mellitus Family history of arthritis Family history of cardiovascular disease Family history of gout Family history of m
[2021-02-21 07:51] LABS: Glucose Point of Care 178 (65-105)
[2021-02-21 08:24] VITALS: BP 116/76; PULSE 87; RESP 18; O2SAT 94
[2021-02-21 08:34] VITALS: BP 113/80; PULSE 83; RESP 21; O2SAT 97
[2021-02-21 08:44] VITALS: BP 122/87; PULSE 83; RESP 21; O2SAT 99
[2021-02-21 09:05] LABS: Glucose Point of Care 130 (65-105)
== END 2021-02-21 08:55 | disposition home or self-care (01) ==
PROVIDERS: PCP Family Medicine; Visit Provider Internal Medicine Gastroenterology
PROC: 0DJD8ZZ Inspection of Lower Intestinal Tract, Via Natural or Artificial Opening Endoscopic (ICD-10-PCS; CPT 45378; principal; 2021-02-21 08:30)
DX: R15.9 Full incontinence of feces (principal); D12.0 Benign neoplasm of cecum; Z90.49 Acquired absence of other specified parts of digestive tract; K57.30 Diverticulosis of large intestine without perforation or abscess without bleeding; K64.8 Other hemorrhoids; K58.0 Irritable bowel syndrome with diarrhea; Z79.82 Long term (current) use of aspirin; F41.8 Other specified anxiety disorders; E78.2 Mixed hyperlipidemia; G25.81 Restless legs syndrome; E11.40 Type 2 diabetes mellitus with diabetic neuropathy, unspecified; Z87.891 Personal history of nicotine dependence; Z98.84 Bariatric surgery status
CPT/HCPCS: 45380; 82948; 88305; J2001; J2704; J7120

== ENCOUNTER 2021-05-20 11:01 | Outpatient (CLI) | payer OTHER, SELFPAY ==
[2021-05-20 11:33] LABS: Basophils Absolute Auto 0.1 K/mm3 (0.0-0.1); Basophils Percent Auto 0.9 % (0.2-1.2); Eosinophils Absolute Auto 0.6 K/mm3 (0-0.3); Eosinophils Percent Auto 4.5 % (0-4.4); Hematocrit 39.5 % (37.0-47.0); Hemoglobin 11.9 g/dL (12.0-15.0); Immature Granulocyte Absolute 0.08 K/mm3 (0.00-0.031); Immature Granulocyte Percent A 0.6 % (0-0.5); Lymphocytes Absolute Auto 1.21 K/mm3 (0.9-3.2); Lymphocytes Percent Auto 9.3 % (18.3-44.2); Mean Corpuscular HGB Conc 30.1 g/dl (32-36); Mean Corpuscular Hemoglobin 24.6 pg (26-34); Mean Corpuscular Volume 81.8 fl (80-100); Mean Platelet Volume 9.2 fl (7.4-10.4); Monocytes Absolute Auto 1.2 K/mm3 (0.1-0.6); Monocytes Percent Auto 9.4 % (2.6-8.5); Neutrophils Absolute Auto 9.8 K/mm3 (1.3-6.7); Neutrophils Percent Auto 75.3 % (45.5-73.1); Platelet Count Result 442 k/mm3 (150-375); Red Blood Count 4.83 M/mm3 (4.2-5.4); Red Cell Distribution Width 20.9 % (11.5-14.5)
[2021-05-20 11:46] LABS: Alanine Aminotransferase 65 U/L (4-35); Albumin Level 3.5 g/dL (3.5-5.1); Alkaline Phosphatase 108 U/L (38-126); Anion Gap 7 mmol/L (8-16); Aspartate Amino Transferase 99 U/L (14-36); Bilirubin,Total 0.4 mg/dL (0.2-1.3); Blood Urea Nitrogen 14 mg/dL (7-17); Calcium 9.4 mg/dL (8.4-10.2); Carbon Dioxide 27 mmol/L (22-30); Chloride 100 mmol/L (98-107); Estimated Glomerular Filt Rate > 60; Glucose 99 mg/dL (65-110); Potassium 4.4 mmol/L (3.4-5.0); Sodium 134 mmol/L (137-145)
[2021-05-20 11:47] LABS: Iron 105 ug/dL (37-170)
[2021-05-20 11:57] LABS: Percent Iron Saturation 31 % (20-50)
[2021-05-20 12:07] LABS: Free T4 Free Thyroxine 1.15 ng/mL (0.78-2.19)
[2021-05-20 12:17] LABS: Thyroid Stimulating Hormone 0.867 uIU/mL (0.465-4.680)
[2021-05-20 14:43] LABS: Vitamin D 25 Hydroxy 39.5 ng/mL
== END 2021-05-20 11:02 | disposition home or self-care (01) ==
LOC: ANHLAB 11:02
PROVIDERS: PCP Family Medicine; Visit Provider Family Medicine
DX: E11.42 Type 2 diabetes mellitus with diabetic polyneuropathy (principal); E61.1 Iron deficiency; E55.9 Vitamin D deficiency, unspecified; K58.2 Mixed irritable bowel syndrome; E53.8 Deficiency of other specified B group vitamins; R30.0 Dysuria
CPT/HCPCS: 36415; 80048; 80076; 82306; 82607; 83540; 83550; 84439; 84443; 85025; 87077; 87086; 87088; 87186

== ENCOUNTER 2021-07-04 14:36 | Outpatient (CLI) | payer OTHER, SELFPAY ==
[2021-07-04 15:47] LABS: Basophils Absolute Auto 0.2 K/mm3 (0.0-0.1); Basophils Percent Auto 1.5 % (0.2-1.2); Eosinophils Absolute Auto 0.4 K/mm3 (0-0.3); Eosinophils Percent Auto 3.7 % (0-4.4); Hematocrit 39.3 % (37.0-47.0); Hemoglobin 11.5 g/dL (12.0-15.0); Immature Granulocyte Absolute 0.11 K/mm3 (0.00-0.031); Immature Granulocyte Percent A 1.1 % (0-0.5); Lymphocytes Percent Auto 11.7 % (18.3-44.2); Mean Corpuscular HGB Conc 29.3 g/dl (32-36); Mean Corpuscular Hemoglobin 25.8 pg (26-34); Mean Corpuscular Volume 88.1 fl (80-100); Mean Platelet Volume 9.7 fl (7.4-10.4); Monocytes Absolute Auto 0.9 K/mm3 (0.1-0.6); Monocytes Percent Auto 8.3 % (2.6-8.5); Neutrophils Absolute Auto 7.6 K/mm3 (1.3-6.7); Neutrophils Percent Auto 73.7 % (45.5-73.1); Platelet Count Result 577 k/mm3 (150-375); Red Blood Count 4.46 M/mm3 (4.2-5.4); Red Cell Distribution Width 17.2 % (11.5-14.5); White Blood Count 10.3 K/mm3 (4.5-10.0)
[2021-07-04 16:17] LABS: Alanine Aminotransferase 39 U/L (4-35); Alkaline Phosphatase 95 U/L (38-126); Anion Gap 12 mmol/L (8-16); Aspartate Amino Transferase 53 U/L (14-36); Bilirubin,Total 0.2 mg/dL (0.2-1.3); Blood Urea Nitrogen 18 mg/dL (7-17); Calcium 9.2 mg/dL (8.4-10.2); Carbon Dioxide 24 mmol/L (22-30); Chloride 100 mmol/L (98-107); Estimated Glomerular Filt Rate > 60; Glucose 413 mg/dL (65-110); Potassium 4.4 mmol/L (3.4-5.0); Sodium 136 mmol/L (137-145)
[2021-07-04 16:22] LABS: Alanine Aminotransferase 40 U/L (4-35); Alkaline Phosphatase 93 U/L (38-126); Aspartate Amino Transferase 56 U/L (14-36); Bilirubin,Total 0.2 mg/dL (0.2-1.3)
[2021-07-04 16:52] LABS: Hepatitis B Surface Antigen Negative (Negative)
[2021-07-04 16:57] LABS: HAV RESULT Negative (Negative); Hepatitis B Core IgM Result Negative (Negative)
[2021-07-04 17:09] LABS: Hepatitis C Virus Antibody Negative (Negative)
[2021-07-04 17:26] LABS: Hypochromasia 1+ (NORMAL); Platelet Estimate Increased (Adequate)
[2021-07-04 17:27] LABS: Anisocytosis 2+ (NORMAL)
== END 2021-07-04 14:37 | disposition home or self-care (01) ==
PROVIDERS: PCP Family Medicine; Referring Provider Family Medicine; Visit Provider Physician Assistant Medical
DX: D72.829 Elevated white blood cell count, unspecified (principal); R79.89 Other specified abnormal findings of blood chemistry; R74.8 Abnormal levels of other serum enzymes
CPT/HCPCS: 36415; 80053; 80074; 80076; 82607; 85025

== ENCOUNTER 2021-10-31 08:38 | Outpatient (CLI) | payer MEDICARE, SELFPAY ==
--- NOTE | ~2021-10-31 | MM_ITS ---
EXAMINATION: MM screening sukhwinder BI w ce HISTORY: Screening TECHNIQUE: Craniocaudal and mediolateral oblique 3-D tomosynthesis images were obtained and synthetic 2-D images were generated. CAD analysis was submitted and interpreted. COMPARISON: Comparison to multiple prior studies sequentially, with oldest reviewed study dated 04/12/2012. BREAST PARENCHYMAL COMPOSITION: Breast composed of scattered areas of fibroglandular density. FINDINGS: There is no evidence of suspicious mass, calcification, or architectural distortion to sugg est malignancy in either breast. There has been no suspicious interval change. IMPRESSION: 1. No mammographic evidence of malignancy. 2. Recommend routine screening mammography in one year. BI-RADS Category 1: Negative Reviewed, dictated and finalized at location A. [facility] [employer]
== END 2021-10-31 08:39 | disposition home or self-care (01) ==
LOC: ANHIMG 08:39
PROVIDERS: PCP Family Medicine; Visit Provider Physician Assistant Medical
DX: Z12.31 Encounter for screening mammogram for malignant neoplasm of breast (principal)
CPT/HCPCS: 77063; 77067

== ENCOUNTER 2022-02-17 10:50 | Outpatient (CLI) | payer MEDICARE, SELFPAY ==
[2022-02-17 11:13] LABS: Basophils Absolute Auto 0.1 K/mm3 (0.0-0.1); Basophils Percent Auto 1.3 % (0.2-1.2); Eosinophils Absolute Auto 0.5 K/mm3 (0-0.3); Eosinophils Percent Auto 5.7 % (0-4.4); Hematocrit 42.2 % (37.0-47.0); Hemoglobin 12.7 g/dL (12.0-15.0); Immature Granulocyte Absolute 0.06 K/mm3 (0.00-0.031); Immature Granulocyte Percent A 0.6 % (0-0.5); Lymphocytes Absolute Auto 1.72 K/mm3 (0.9-3.2); Lymphocytes Percent Auto 18.2 % (18.3-44.2); Mean Corpuscular HGB Conc 30.1 g/dl (32-36); Mean Corpuscular Hemoglobin 26.2 pg (26-34); Mean Corpuscular Volume 87.2 fl (80-100); Mean Platelet Volume 9.5 fl (7.4-10.4); Monocytes Absolute Auto 0.8 K/mm3 (0.1-0.6); Monocytes Percent Auto 8.8 % (2.6-8.5); Neutrophils Absolute Auto 6.2 K/mm3 (1.3-6.7); Neutrophils Percent Auto 65.4 % (45.5-73.1); Platelet Count Result 416 k/mm3 (150-375); Red Blood Count 4.84 M/mm3 (4.2-5.4); Red Cell Distribution Width 15.7 % (11.5-14.5); White Blood Count 9.5 K/mm3 (4.5-10.0)
[2022-02-17 11:25] LABS: Alanine Aminotransferase 30 U/L (4-35); Albumin Level 4.1 g/dL (3.5-5.1); Alkaline Phosphatase 110 U/L (38-126); Anion Gap 7 mmol/L (8-16); Aspartate Amino Transferase 33 U/L (14-36); Bilirubin,Total 0.3 mg/dL (0.2-1.3); Blood Urea Nitrogen 13 mg/dL (7-17); Calcium 8.7 mg/dL (8.4-10.2); Carbon Dioxide 25 mmol/L (22-30); Chloride 103 mmol/L (98-107); Cholesterol 98 mg/dL (0-200); Estimated Glomerular Filt Rate > 60; Glucose 111 mg/dL (65-110); HDL Direct 45 mg/dL; Potassium 4.2 mmol/L (3.4-5.0); Sodium 135 mmol/L (137-145); Triglycerides 114 mg/dL (<150)
[2022-02-17 11:34] LABS: Iron 55 ug/dL (37-170)
[2022-02-17 11:44] LABS: Percent Iron Saturation 14 % (20-50)
[2022-02-17 11:55] LABS: Thyroid Stimulating Hormone 0.426 uIU/mL (0.465-4.680)
[2022-02-17 12:01] LABS: LDL Cholesterol Direct < 30 mg/dL
== END 2022-02-17 10:51 | disposition home or self-care (01) ==
LOC: ANHLAB 10:51
PROVIDERS: PCP Family Medicine; Visit Provider Family Medicine
DX: R74.8 Abnormal levels of other serum enzymes (principal); R79.89 Other specified abnormal findings of blood chemistry; D64.9 Anemia, unspecified; F32.9 Major depressive disorder, single episode, unspecified; E11.65 Type 2 diabetes mellitus with hyperglycemia; E61.1 Iron deficiency; Z13.220 Encounter for screening for lipoid disorders
CPT/HCPCS: 36415; 80048; 80061; 80076; 82607; 83540; 83550; 84443; 85025

== ENCOUNTER 2022-04-26 10:03 | Outpatient (CLI) | payer MEDICARE, SELFPAY ==
--- NOTE | ~2022-04-26 | NM_ITS ---
EXAM: NM gastric emptying study DATE: 04/26/2022 12:55 INDICATION: Abdominal pain and bloating. TECHNIQUE: A gastric emptying study was performed using the methodology of Ezio CARPENTER, et al. J Nucl Med 2007; 48:568-572. The patient was given a meal consisting of 2 scrambled eggs labeled with 1.05 mCi Tc-99m sulfur colloid, 2 slices of toast, two packages of jam, and approximately 120 mL of water. Simultaneous anterior and posterior 1-min images of the abdomen were obtained with the patient supin e at multiple time points over a total period of 4 hours. The geometric mean of anterior and posterio r views was determined, and the percentage retention was calculated for each time point. COMPARISON: CT abdomen and pelvis dated 10/07/2015 FINDINGS: Gastric retention of the radiotracer-labeled meal was 78%, 69%, and 44% at the 1-hour, 2-hour, and 4- hour time points, respectively. With this technique, apparent rapid gastric emptying is suggested by <30% gastric retention at 1 hour. Delayed gastric emptying is defined by gastric retention of >90% at 1 hour, >60% retention at 2 hours, or >10% retention at 4 hours. The pattern of activity when compar ed with the prior CT suggests emptying of the proximal portion of the stomach into both the mid to di stal stomach as well as into the Immanuel limb of a retrocolic Immanuel-en-Y gastric bypass. IMPRESSION: 1. Delayed gastric emptying. 2. Prior Immanuel-en-Y gastric bypass procedure evident on earlier CT with configuration of the activity in the current study suggesting emptying of the proximal portion of the stomach into both the Immanuel li mb as well as the mid to distal stomach. The delayed gastric emptying appears to result primarily fro m the activity in the mid to distal stomach. If clinically indicated this could be further evaluated with upper GI study. Reviewed, dictated and finalized at location A. IMPRESSION: 1. Delayed gastric emptying. 2. Prior Immanuel-en-Y gastric bypass procedure evident on earlier CT with configur ation of the activity in the current study suggesting emptying of the proximal portion of the stomach into both the Immanuel limb as well as the mid to distal sto mach. The delayed gastric emptying appears to result primarily from the activit y in the mid to distal stomach. If clinically indicated this could be further e valuated with upper GI study.
[2022-04-26 12:00] LABS: Free T4 Free Thyroxine 0.93 ng/mL (0.78-2.19); Vitamin D 25 Hydroxy 35.7 ng/mL
[2022-04-26 12:01] LABS: Thyroid Stimulating Hormone 0.346 uIU/mL (0.465-4.680)
== END 2022-04-26 10:04 | disposition home or self-care (01) ==
PROVIDERS: PCP Family Medicine; Referring Provider Physician Assistant Medical; Visit Provider Family Medicine
DX: R10.9 Unspecified abdominal pain (principal); E55.9 Vitamin D deficiency, unspecified; L65.9 Nonscarring hair loss, unspecified
CPT/HCPCS: 36415; 78264; 82306; 84439; 84443; A9541

== ENCOUNTER 2022-05-22 09:29 | Outpatient (CLI) | payer MEDICARE, SELFPAY ==
[2022-05-22 10:18] LABS: Alanine Aminotransferase 33 U/L (6-35); Aspartate Amino Transferase 43 U/L (14-36)
== END 2022-05-22 09:30 | disposition home or self-care (01) ==
PROVIDERS: PCP Family Medicine; Visit Provider Podiatrist Foot & Ankle Surgery
DX: B35.1 Tinea unguium (principal)
CPT/HCPCS: 36415; 84450; 84460

== ENCOUNTER 2022-06-07 14:34 | Outpatient (CLI) | payer MEDICARE, SELFPAY ==
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
== END 2022-06-07 14:35 | disposition home or self-care (01) ==
PROVIDERS: PCP Family Medicine; Visit Provider Physician Assistant Medical
DX: Z78.0 Asymptomatic menopausal state (principal); M85.89 Other specified disorders of bone density and structure, multiple sites
CPT/HCPCS: 77080

== ENCOUNTER 2022-07-18 07:58 | Outpatient (CLI) | payer MEDICARE, SELFPAY ==
--- NOTE | 2022-08-19 20:14 | WPDSLEEPSTUD ---
Sleep Study Date of Study: 07/18/22 Ordering Provider: Raji Bourne MD Interpreting Physician: Alejandra Atkins MD Sleep Study Type: Split Polysomnogram Height: 1.65 m Weight: 88.451 kg Body Mass Index: 32.4 Neck Circumference (inches): 16 [place]: 14 Reason for Sleep Study Constantly feeling tired, poor quality sleep * 05/27/2018- split night; AHI 13.2, desaturation to 74%, myoclonus 48/hour * 07/10/2018 - CPAP ; 8 cm optimal pressure. * 05/26/2022 - [employer] overnight oximetry ; SRAVANI oxygen desaturation index-43, lowest saturation 73% Sleep History Alee Melendez is a 67-year-old female with poor quality sleep. She is tired all the time. She has use sleeping pills to help with this in the past. She has a difficult time falling asleep and she wakes up throughout the night. She does not wake up from sleep feeling short of breath. She frequently awakens at night with heartburn, belching or coughing. She occasionally snores, and occasionally this is loud enough that it bothers others. She occasionally has trouble sleeping with a cold. She does not wake up gasping for breath at night. She frequently has breathing problems at night observed by others. She occasionally sweats excessively at night. She occasionally notices her heart pounding or beating irregularly at night. She rarely falls asleep during the day, she does not fall asleep involuntarily or while driving. She does not have loss of muscle tone with strong emotion. She rarely has day daytime difficulties due to excessive sleepiness. She does not feel paralyzed on waking or falling asleep. She does not have vivid dreamlike scenes on waking or falling asleep. She does not feel afraid to go to sleep. She occasionally has nightmares. She rarely remembers her dreams. She occasionally has racing thoughts. She does not feel sad depressed or anxious. She frequently has muscular tension. She frequently notices parts of her body jerking. She frequently kicks at night and has crawling aching feelings in her legs. She occasionally has leg pain at night. She occasionally has morning jaw pain. She frequently is bothered by pain during the day. She has concentration difficulties. Normal bedtime is 7:00 p.m., taking 15 minutes to fall asleep, waking usually 3 times at night. She wakes at 4 in the morning. Sometimes it may take her quite a while to return to sleep. She estimates getting only 2 hours of sleep at night she denies taking naps in the afternoon or evening. A short nap 10 or 15 minutes long is not refreshing. She is drowsy after waking for 2 hours or longer. She feels better in the afternoon compared to other times of day. Habits: Quit tobacco years ago. She consumes caffeine. She does not use alcohol or recreational drugs. [facility] Past Medical History Medical History (Updated 08/19/22 @ 20:28 by Alejandra Atkins MD) Abdominal pain Achilles tendinitis of right lower extremity Adenomatous colon polyp After-cataract Allergies Anxiety and depression Arthritis of carpometacarpal (CMC) joint of left thumb BMI 28.0-28.9,adult BMI 29.0-29.9,adult BMI 31.0-31.9,adult BMI 32.0-32.9,adult BMI 33.0-33.9,adult BMI greater than 30 Cervical strain, acute Diabetes type 2, controlled Diabetes type 2, uncontrolled Dysuria Encounter for medication refill Essential (primary) hypertension Essential hypertension Exocrine pancreatic insufficiency Exostosis of right posterior calcaneus Gastroparesis IBS (irritable bowel syndrome) Impacted cerumen Insomnia Irritable bowel syndrome with diarrhea Left shoulder pain Left shoulder strain Leg cramping Low back pain Mixed hyperlipidemia Neuropathy Nocturnal hypoxia COLIN (obstructive sleep apnea) Pain of right heel Restless leg Right hip pain Scalp cyst Screening mammogram, encounter for Small intestinal bacterial overgrowth (SIBO) Small vessel disease Trigger finger of right hand Type 2 diabetes mellitus without complicati
[2022-08-19 20:16] VITALS: BMI 32.4
== END 2022-07-19 06:56 | disposition home or self-care (01) ==
LOC: ANHCSM 08:01
PROVIDERS: PCP Family Medicine; Visit Provider Family Medicine
DX: G47.34 Idiopathic sleep related nonobstructive alveolar hypoventilation (principal); G47.39 Other sleep apnea; G47.33 Obstructive sleep apnea (adult) (pediatric); Z68.32 Body mass index [BMI] 32.0-32.9, adult
CPT/HCPCS: 95811

== ENCOUNTER 2022-07-22 10:48 | Emergency (ER) | payer OTHER, MEDICARE, SELFPAY ==
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
[2022-07-22 10:55] VITALS: BP 123/89; PULSE 97; RESP 18; TEMP 37; O2SAT 99
--- NOTE | 2022-07-22 11:17 | PC.NURSE ---
Pt taken for x-ray
[2022-07-22 11:23] LABS: Basophils Absolute Auto 0.2 K/mm3 (0.0-0.1); Basophils Percent Auto 1.5 % (0.2-1.2); Eosinophils Absolute Auto 0.2 K/mm3 (0-0.3); Eosinophils Percent Auto 1.8 % (0-4.4); Hematocrit 43.4 % (37.0-47.0); Hemoglobin 13.4 g/dL (12.0-15.0); Immature Granulocyte Absolute 0.11 K/mm3 (0.00-0.031); Immature Granulocyte Percent A 1.1 % (0-0.5); Lymphocytes Absolute Auto 1.67 K/mm3 (0.9-3.2); Lymphocytes Percent Auto 16.7 % (18.3-44.2); Mean Corpuscular HGB Conc 30.9 g/dl (32-36); Mean Corpuscular Hemoglobin 26.2 pg (26-34); Mean Corpuscular Volume 84.8 fl (80-100); Mean Platelet Volume 9.2 fl (7.4-10.4); Monocytes Absolute Auto 0.9 K/mm3 (0.1-0.6); Monocytes Percent Auto 8.7 % (2.6-8.5); Neutrophils Absolute Auto 7.1 K/mm3 (1.3-6.7); Neutrophils Percent Auto 70.2 % (45.5-73.1); Platelet Count Result 504 k/mm3 (150-375); Red Blood Count 5.12 M/mm3 (4.2-5.4); Red Cell Distribution Width 16.9 % (11.5-14.5)
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
[2022-07-22 11:35] LABS: Anion Gap 8 mmol/L (8-16); Blood Urea Nitrogen 14 mg/dL (7-17); Calcium 9.3 mg/dL (8.4-10.2); Carbon Dioxide 24 mmol/L (22-30); Chloride 100 mmol/L (98-107); Estimated CRCL calculation 98 ml/min; Estimated Glomerular Filt Rate > 60; Glucose 216 mg/dL (65-110); Lipase 161 U/L (23-300); Potassium 4.5 mmol/L (3.4-5.0); Sodium 132 mmol/L (137-145)
[2022-07-22] MEDS: HYDROmorphone HCL INJ (*CRX) 1 MG/ML SYR 0.5 MG IV PUSH (11:42)
[2022-07-22 11:46] LABS: Troponin I < 0.012 ng/mL (0.000-0.034)
[2022-07-22 11:47] VITALS: BP 128/66; PULSE 91; RESP 18; O2SAT 97
[2022-07-22 13:46] VITALS: BP 126/89; PULSE 94; RESP 18; O2SAT 95
== END 2022-07-22 12:30 | disposition home or self-care (01) ==
PROVIDERS: Emergency Provider Nurse Practitioner Family; PCP Family Medicine
DX: S16.1XXA Strain of muscle, fascia and tendon at neck level, initial encounter (principal); S39.012A Strain of muscle, fascia and tendon of lower back, initial encounter; S20.212A Contusion of left front wall of thorax, initial encounter; R10.12 Left upper quadrant pain; E11.40 Type 2 diabetes mellitus with diabetic neuropathy, unspecified; E11.43 Type 2 diabetes mellitus with diabetic autonomic (poly)neuropathy; K31.84 Gastroparesis; E78.2 Mixed hyperlipidemia; K58.0 Irritable bowel syndrome with diarrhea; I10 Essential (primary) hypertension; K86.81 Exocrine pancreatic insufficiency; G47.33 Obstructive sleep apnea (adult) (pediatric); G25.81 Restless legs syndrome; Z86.010 Personal history of colon polyps; Z87.891 Personal history of nicotine dependence; Z79.82 Long term (current) use of aspirin; Z79.84 Long term (current) use of oral hypoglycemic drugs; R90.82 White matter disease, unspecified; Z98.1 Arthrodesis status; M47.812 Spondylosis without myelopathy or radiculopathy, cervical region; V43.52XA Car driver injured in collision with other type car in traffic accident, initial encounter
CPT/HCPCS: 36415; 70450; 71260; 72125; 74177; 80048; 83690; 84484; 85025; 96374; 99284; J1170; Q9967

== ENCOUNTER 2022-09-04 09:59 | Outpatient (CLI) | payer MEDICARE, SELFPAY ==
[2022-09-04 11:17] LABS: Free T4 Free Thyroxine 0.97 ng/mL (0.78-2.19)
[2022-09-07 13:46] LABS: Thyroid Stimulating Immunoglob <89 % baseline (<140)
[2022-09-10 18:11] LABS: Triiodothyronine T3 Free 2.5 pg/mL (2.3-4.2)
== END 2022-09-04 10:00 | disposition home or self-care (01) ==
LOC: ANHLAB 10:02
PROVIDERS: PCP Family Medicine; Visit Provider Internal Medicine Endocrinology, Diabetes & Metabolism
DX: E04.9 Nontoxic goiter, unspecified (principal); E05.90 Thyrotoxicosis, unspecified without thyrotoxic crisis or storm
CPT/HCPCS: 36415; 84439; 84443; 84445; 84481

== ENCOUNTER 2022-11-10 08:29 | Outpatient (CLI) | payer OTHER, SELFPAY ==
--- NOTE | ~2022-11-10 | MR_ITS ---
MRI of the cervical spine Clinical History: Radiculopathy Technique: Axial T2-weighted and gradient images, and sagittal T1-weighted, T2-weighted, and STIR gissell ges were acquired. Findings: No acute fracture or subluxation of the cervical spine identified. There is anterior fusion hardware extending from C5 to C6, probable fusion across the relevant disc space. There is moderate degenerative disc change at C6-C7 disc space, with advanced degenerative disc narrowing at C7-T1. At C2-C3, there is no significant disc bulge or herniation. No spinal canal stenosis, cord compressio n, or neural foraminal narrowing. At C3-C4, there is small central disc bulge. There is left facet arthropathy. No spinal canal stenosi s or cord compression. There is mild left neural foraminal narrowing. Right neural foramen preserved. At C4-C5, there is no significant disc bulge or herniation. No spinal canal stenosis, cord compressio n, or neural foraminal narrowing. At C5-C6, there is no disc bulge or herniation. There is minimal flattening of the ventral cord relat ed to mild, smooth bony prominence along the posterior margin of the fusion.. There is probable bilat eral neural foraminal narrowing. At C6-C7, there is mild disc bulge. No quincy spinal canal stenosis or cord compression. Neural forami na are probably preserved. No abnormal signal evident in the spinal cord. Impression: Status post anterior fusion from C5 to C6. Mild degenerative spondylosis, as detailed above. There is multilevel neural foraminal narrowing. The re is minimal flattening of the ventral cord at the C5-C6 level related to smooth bony prominence rel ated to the fusion. Reviewed, dictated and finalized at [facility]. [employer] Impression: Status post anterior fusion from C5 to C6. Mild degenerative spondylosis, as detailed above. There is multilevel neural fo raminal narrowing. There is minimal flattening of the ventral cord at the C5-C6 level related to smooth bony prominence related to the fusion.
== END 2022-11-10 08:30 | disposition home or self-care (01) ==
PROVIDERS: PCP Family Medicine; Visit Provider Family Medicine
DX: M47.22 Other spondylosis with radiculopathy, cervical region (principal); M47.12 Other spondylosis with myelopathy, cervical region; Z98.1 Arthrodesis status
CPT/HCPCS: 72141

== ENCOUNTER 2022-12-28 10:36 | Outpatient (CLI) | payer MEDICARE, SELFPAY ==
[2022-12-31 16:06] LABS: Tissue Transglutaminase IgG Ab <1.0 U/mL (<15.0)
[2023-01-02 09:43] LABS: Tissue Transglutaminase IgA Ab <1.0 U/mL (<15.0)
== END 2022-12-28 10:37 | disposition home or self-care (01) ==
PROVIDERS: PCP Family Medicine; Visit Provider Internal Medicine Gastroenterology
DX: K58.0 Irritable bowel syndrome with diarrhea (principal); K63.89 Other specified diseases of intestine
CPT/HCPCS: 36415; 83516

== ENCOUNTER 2023-01-05 09:43 | Emergency (ER) | payer MEDICARE, SELFPAY ==
[2023-01-05] VITALS (47 sets, daily range): BP systolic 92–163; BP diastolic 53–105; PULSE 79–93; RESP 12–25; TEMP 36.3; O2SAT 87–100
--- NOTE | ~2023-01-05 | CT_ITS ---
EXAMINATION: CT abdomen pelvis w con DATE: 01/05/2023 13:41 INDICATION: Right upper quadrant abdominal pain. Epigastric abdominal pain. TECHNIQUE: Computed tomography (CT) of the abdomen and pelvis was performed with 100 mL Omnipaque 350 intravenous contrast. Automated exposure control and iterative reconstruction technique were employe d. The dose-length product was 1115.91 mGy-cm. COMPARISON: CT abdomen and pelvis 07/22/2022 FINDINGS: The visualized portions of the lung bases demonstrate mild atelectasis. No pleural effusion . The heart size is normal. There are coronary artery calcifications. No pericardial effusion. There is mild intrahepatic biliary duct dilatation. The spleen is normal. There are changes of cholecystect boyd. The common duct is dilated to 13 mm. There are changes of gastric bypass procedure. The pancreas and right adrenal gland are normal. There are dystrophic calcifications of the left adrenal gland. T here is an 8 mm cyst in right kidney. There is focal cortical volume loss of left kidney. There is di verticulosis of the colon without evidence of diverticulitis. There are no dilated loops of bowel. Th e appendix is normal. There are no pathologically enlarged lymph nodes. There is no free intraperiton eal fluid. There is lumbar levoscoliosis and severe spondylosis. There is severe thoracic spondylosis . IMPRESSION: 1. Mild intrahepatic and extrahepatic bile duct dilatation status post cholecystectomy, stable from 1 . Reviewed, dictated and finalized at location A. IMPRESSION: 1. Mild intrahepatic and extrahepatic bile duct dilatation status post cholecys tectomy, stable from 07/22/2022.
--- NOTE | ~2023-01-05 | XR_ITS ---
EXAMINATION: XR chest 2V DATE: 01/05/2023 10:49 INDICATION: Chest pain. TECHNIQUE: Frontal and lateral views of the chest were obtained. COMPARISON: Chest single view 10/01/2020 FINDINGS: There is mild atelectasis in the lower lung zones. No pleural effusion or pneumothorax. The heart size is normal. There are changes of anterior fusion procedures in cervical spine. There are c hanges of posterior fusion procedure in lumbar spine. There is a total left shoulder arthroplasty. IMPRESSION: 1. Mild atelectasis in the lower lung zones. Reviewed, dictated and finalized at location A.
--- NOTE | ~2023-01-05 | US_ITS ---
EXAMINATION: US right upper quadrant DATE: 01/05/2023 10:46 INDICATION: Abdominal pain and possible bile duct stones TECHNIQUE: Multiple grayscale and Doppler ultrasound images of the abdomen were obtained. COMPARISON: CT dated 07/22/2022 FINDINGS: The region of the pancreas is obscured by shadowing bowel gas. Liver has normal echogenicity and cont our, with a smooth surface. No liver lesion identified. No intrahepatic biliary duct dilation suspect ed. Portal venous flow was seen in the hepatopetal, normal direction and has normal Doppler waveform. Gallbladder is not visualized consistent with prior cholecystectomy with surgical clips evident at t he gallbladder fossa from prior CT. Common bile duct measures 12 mm in diameter which is unchanged si nce the prior CT and which is likely related to prior cholecystectomy. No evident choledocholithiasis with small portion of the mid and distal common bile duct obscured by shadowing bowel gas. Visualize d portion of the inferior vena cava is normal. Visualized right kidney demonstrates normal echogenici ty and contour with no hydronephrosis. IMPRESSION: 1. Dilation of the common bile duct to 12 mm in maximal diameter which is unchanged since CT dated and likely related to prior cholecystectomy. Reviewed, dictated and finalized at location B. IMPRESSION: 1. Dilation of the common bile duct to 12 mm in maximal diameter which is uncha nged since CT dated 07/22/2022 and likely related to prior cholecystectomy.
--- NOTE | 2023-01-05 09:59 | ECG_ITS ---
Measurements Intervals [place] Rate: 85 P: 16 GA: 181 QRS: -29 QRSD: 104 T: 5 QT: 325 QTc: 388 Interpretive Statements SINUS RHYTHM VENTRICULAR PREMATURE COMPLEX LOW QRS VOLTAGE IN PRECORDIAL LEADS POOR R WAVE PROGRESSION, CONSIDER ANTERIOR INFARCT BASELINE ARTIFACT- I, AVR ABNORMAL ECG COMPARED TO ECG 10/01/2020 12:39:25 SINUS RHYTHM NOW PRESENT Electronically Signed On 01-05-2023 10:21:18 CDT by Alex Steen D.O.
[2023-01-05 10:15] LABS: Basophils Absolute Auto 0.1 K/mm3 (0.0-0.1); Basophils Percent Auto 0.3 % (0.2-1.2); Eosinophils Absolute Auto 0.1 K/mm3 (0-0.3); Eosinophils Percent Auto 0.3 % (0-4.4); Hematocrit 42.6 % (37.0-47.0); Hemoglobin 13.4 g/dL (12.0-15.0); Immature Granulocyte Absolute 0.17 K/mm3 (0.00-0.031); Immature Granulocyte Percent A 0.6 % (0-0.5); Lymphocytes Absolute Auto 0.52 K/mm3 (0.9-3.2); Lymphocytes Percent Auto 1.8 % (18.3-44.2); Mean Corpuscular HGB Conc 31.5 g/dl (32-36); Mean Corpuscular Volume 85.9 fl (80-100); Mean Platelet Volume 9.3 fl (7.4-10.4); Monocytes Absolute Auto 1.9 K/mm3 (0.1-0.6); Monocytes Percent Auto 6.7 % (2.6-8.5); Neutrophils Absolute Auto 25.5 K/mm3 (1.3-6.7); Neutrophils Percent Auto 90.3 % (45.5-73.1); Platelet Count Result 421 k/mm3 (150-375); Red Blood Count 4.96 M/mm3 (4.2-5.4); Red Cell Distribution Width 16.7 % (11.5-14.5); White Blood Count 28.2 K/mm3 (4.5-10.0)
[2023-01-05 10:26] LABS: INR 1.1; Prothrombin Time 13.4 Seconds (11.1-14.7)
[2023-01-05 10:27] LABS: Partial Thromboplastin Time 24.4 SECONDS (22.3-36.8)
[2023-01-05 10:46] LABS: Platelet Estimate Increased (Adequate)
[2023-01-05 10:47] LABS: Schistocytes None Seen (NORMAL)
[2023-01-05] MEDS: MORPHINE SULFATE (*CRX) 4 MG/ML INJ IV PUSH (10:49)
[2023-01-05] MEDS: ONDANSETRON INJ 4 MG/2 ML VIAL IV PUSH (10:49)
[2023-01-05 10:52] LABS: Anisocytosis 1+ (NORMAL); Burr Cells 1+ (NORMAL)
--- NOTE | 2023-01-05 10:55 | ED.GENADULT ---
HPI - General Adult General Chief complaint: Chest Pain <Matti Valles MD - Last Filed: 01/05/23 21:44> Stated complaint: chest pains <Matti Valles MD - Last Filed: 01/05/23 21:44> Time Seen by Provider: 01/05/23 09:59 <Matti Valles MD - Last Filed: 01/05/23 21:44> History of Present Illness HPI narrative: Patient is a 67-year-old female who presents ER with sudden onset abdominal pain. Right upper quadrant. Sharp and nonradiating. Associated with nausea. Feels like gallbladder pain she has had in the past however her gallbladder has been surgically removed. No fevers or chills or sweats. No chest pain or chest pressure. Found no alleviating factors. She was not eating when symptoms began. No chest pain or pressure. <Matti Valles MD - Last Filed: 01/05/23 21:44> Related Data Home medications: Home Medications Medication Instructions Recorded Confirmed aspirin 81 mg tablet,delayed 81 mg PO DAILY 09/20/19 01/01/23 release (Aspir-) cholecalciferol (vitamin D3) 25 25 mcg PO DAILY 05/16/22 01/01/23 mcg (1,000 unit) capsule <Matti Valles MD - Last Filed: 01/05/23 21:44> Allergies/adverse reactions: Allergies Allergy/AdvReac Type Severity Reaction Status Date / Time adhesive Allergy Intermediate Blister Verified 01/01/23 14:27 benzoin Allergy Intermediate LOCAL Verified 01/01/23 14:27 IRRITATION/ BLISTERS fentanyl Allergy Intermediate Rash Verified 01/01/23 14:27 dulaglutide [From Trulicity] AdvReac Intermediate Abdominal Verified 01/01/23 14:27 Pain hydrocodone AdvReac Intermediate Itching Verified 01/01/23 14:27 trazadone Allergy Palpitation Uncoded 01/05/23 10:04 s <Matti Valles MD - Last Filed: 01/05/23 21:44> Review of Systems Review of Systems: All systems reviewed & are unremarkable except as noted in HPI and below <Matti Valles MD - Last Filed: 01/05/23 21:44> Constitutional: Constitutional: Denies chills, Denies fatigue and Denies fever(s) <Matti Valles MD - Last Filed: 01/05/23 21:44> ENT: Denies nasal congestion and Denies sore throat <Matti Valles MD - Last Filed: 01/05/23 21:44> Cardiovascular: Cardiovascular: Denies chest pain, Denies rapid heart rate and Denies radiating jaw, neck or arm pain <Matti Valles MD - Last Filed: 01/05/23 21:44> Respiratory: Respiratory: Denies cough and Denies dyspnea <Matti Valles MD - Last Filed: 01/05/23 21:44> Gastrointestinal: Gastrointestinal: Reports abdominal pain, Denies diarrhea, Reports nausea and Denies vomiting <Matti Valles MD - Last Filed: 01/05/23 21:44> [facility] Past Medical History Medical History: Medical History Abdominal pain Achilles tendinitis of right lower extremity Adenomatous colon polyp After-cataract Allergies Anxiety and depression Arthritis of carpometacarpal (CMC) joint of left thumb At risk for falling BMI 28.0-28.9,adult BMI 29.0-29.9,adult BMI 31.0-31.9,adult BMI 32.0-32.9,adult BMI 33.0-33.9,adult BMI greater than 30 Cervical strain, acute Diabetes type 2, controlled Diabetes type 2, uncontrolled Dysuria Encounter for medication refill Essential (primary) hypertension Essential hypertension Exocrine pancreatic insufficiency Exostosis of right posterior calcaneus Gastroparesis IBS (irritable bowel syndrome) Impacted cerumen Incontinence of bowel Insomnia Irritable bowel syndrome with diarrhea Left shoulder pain Left shoulder strain Leg cramping Low back pain Mixed hyperlipidemia Neuropathy Nocturnal hypoxia COLIN (obstructive sleep apnea) Pain of right heel Restless leg Right hip pain Scalp cyst Screening mammogram, encounter for Small intestinal bacterial overgrowth (SIBO) Small vessel disease Trigger finger of right hand Type 2 diabetes mellitus without complications <Matti Valles MD - Last Filed: 01/05/23 2
[2023-01-05] MEDS: PIPERACILLN/TAZ 3.375GM/NS50ML 3.375 GM/50 ML BAG IVPB ×2 (13:01→20:40)
[2023-01-05 13:26] LABS: Albumin Level 4.3 g/dL (3.5-5.1); Alkaline Phosphatase 248 U/L (38-126); Anion Gap 8 mmol/L (8-16); Bilirubin,Total 3.5 mg/dL (0.2-1.3); Blood Urea Nitrogen 21 mg/dL (7-17); Calcium 9.2 mg/dL (8.4-10.2); Carbon Dioxide 23 mmol/L (22-30); Chloride 101 mmol/L (98-107); Estimated CRCL calculation 123 ml/min; Estimated Glomerular Filt Rate > 60; Glucose 141 mg/dL (65-110); Lipase 171 U/L (23-300); Potassium 4.5 mmol/L (3.4-5.0); Sodium 132 mmol/L (137-145)
[2023-01-05 13:43] LABS: Troponin I 0.021 ng/mL (0.000-0.034)
[2023-01-05 13:52] LABS: Alanine Aminotransferase 1334 U/L (6-35)
[2023-01-05 14:04] LABS: Amorphous Sediment Urine Present; Bacteria Urine 4+ /hpf; Granular Casts Urine Present /lpf; Non Pathogenic Casts 0-2; RBC Urine >100 /hpf (0-2); Squamous Epithelial Cell Urine Few /hpf (Few); WBC Urine 0-5 /hpf
[2023-01-05 14:04] LABS: Aspartate Amino Transferase 4350 U/L (14-36)
[2023-01-05 14:23] LABS: Appearance Urine Cloudy (Clear); Color Urine Dark Yellow (Yellow); pH Urine 5.5 (5.0-9.0)
[2023-01-05 14:24] LABS: Bilirubin Urine 1+ (Negative); Blood Urine 3+ (Negative); Glucose Urine UA 3+ mg/dL (Negative); Ketones Urine 1+ mg/dL (Negative); Nitrate Urine Negative (Negative); Protein Urine 3+ mg/dL (Negative); Specific Grav Ur 1.015 (1.001-1.035)
[2023-01-05 14:25] LABS: Add Urine Microscopic? YES; Leukocyte Esterase Ur Negative LEU/UL (Negative)
[2023-01-05] MEDS: MORPHINE SULFATE (*CRX) 2 MG/ML INJ IV PUSH ×2 (14:53→19:06)
--- NOTE | 2023-01-05 15:40 | PC.NURSE ---
Triage information given to [facility] transfer center. They will call with a bed assignment from [facility].
[2023-01-05 17:01] LABS: Troponin I 0.022 ng/mL (0.000-0.034)
[2023-01-05 17:46] LABS: Hepatitis B Surface Antigen Negative (Negative)
[2023-01-05 17:51] LABS: HAV RESULT Negative (Negative); Hepatitis B Core IgM Result Negative (Negative)
[2023-01-05 18:03] LABS: Hepatitis C Virus Antibody Negative (Negative)
[2023-01-05 19:33] LABS: Troponin I 0.015 ng/mL (0.000-0.034)
--- NOTE | 2023-01-05 21:05 | PC.NURSE ---
Spoke with marketing sales representative from [facility] transfer center for update. Informed still waiting for bed. Informed she will call back with updates
[2023-01-05] MEDS: SODIUM CHLORIDE 0.9% IV 1,000 ML 150 ML IV CONT (23:09)
[2023-01-06] VITALS (23 sets, daily range): BP systolic 97–142; BP diastolic 56–88; PULSE 73–94; RESP 9–20; TEMP 36.6; O2SAT 92–98
[2023-01-06] MEDS: MORPHINE SULFATE (*CRX) 4 MG/ML INJ IV PUSH ×2 (04:10→07:35)
[2023-01-06] MEDS: PIPERACILLN/TAZ 3.375GM/NS50ML 3.375 GM/50 ML BAG IVPB (04:34)
--- NOTE | 2023-01-06 07:28 | PC.NURSE ---
Patient stated that her pain was back at a 7. Notified Dr. Shukla who advised to give 4mg IVP of morphine.
[2023-01-06] MEDS: SODIUM CHLORIDE 0.9% IV 1,000 ML 150 ML IV CONT (07:39)
--- NOTE | 2023-01-06 09:13 | PC.NURSE ---
Purvi from [facility] transfer center called with placement in bed 2562.
--- NOTE | 2023-01-06 10:07 | PC.NURSE ---
Called Georgiana KING at [facility] for report.
[2023-01-06] MEDS: HYDROmorphone HCL INJ (*CRX) 1 MG/ML SYR 0.5 MG IV PUSH (10:29)
--- NOTE | 2023-01-06 10:55 | PC.NURSE ---
[facility] here to transfer patient [place] [facility] [place]
== END 2023-01-06 11:14 | disposition short-term general hospital (02) ==
PROVIDERS: Emergency Medicine; Emergency Provider Emergency Medicine; PCP Family Medicine
DX: K83.1 Obstruction of bile duct (principal); I10 Essential (primary) hypertension; E11.43 Type 2 diabetes mellitus with diabetic autonomic (poly)neuropathy; K86.81 Exocrine pancreatic insufficiency; K31.84 Gastroparesis; K58.0 Irritable bowel syndrome with diarrhea; M18.9 Osteoarthritis of first carpometacarpal joint, unspecified; G47.33 Obstructive sleep apnea (adult) (pediatric); Z86.010 Personal history of colon polyps; Z87.891 Personal history of nicotine dependence; Z79.82 Long term (current) use of aspirin; Z79.84 Long term (current) use of oral hypoglycemic drugs; I49.3 Ventricular premature depolarization; R94.31 Abnormal electrocardiogram [ECG] [EKG]
CPT/HCPCS: 36415; 71046; 74177; 76705; 80053; 80074; 81001; 83690; 84484; 85025; 85610; 85730; 87040; 93005; 96361; 96365; 96366; 96375; 96376; 99285; J1170; J2270; J2405; J2543; J7030; Q9967

== ENCOUNTER 2023-01-18 10:37 | Outpatient (CLI) | payer MEDICARE, SELFPAY ==
[2023-01-18 16:00] LABS: Basophils Absolute Auto 0.2 K/mm3 (0.0-0.1); Basophils Percent Auto 1.4 % (0.2-1.2); Eosinophils Absolute Auto 0.5 K/mm3 (0-0.3); Eosinophils Percent Auto 4.1 % (0-4.4); Hematocrit 42.4 % (37.0-47.0); Hemoglobin 12.9 g/dL (12.0-15.0); Immature Granulocyte Absolute 0.08 K/mm3 (0.00-0.031); Immature Granulocyte Percent A 0.7 % (0-0.5); Lymphocytes Absolute Auto 1.97 K/mm3 (0.9-3.2); Lymphocytes Percent Auto 16.9 % (18.3-44.2); Mean Corpuscular HGB Conc 30.4 g/dl (32-36); Mean Corpuscular Hemoglobin 26.6 pg (26-34); Mean Corpuscular Volume 87.4 fl (80-100); Mean Platelet Volume 9.8 fl (7.4-10.4); Monocytes Absolute Auto 0.8 K/mm3 (0.1-0.6); Monocytes Percent Auto 7.1 % (2.6-8.5); Neutrophils Absolute Auto 8.2 K/mm3 (1.3-6.7); Neutrophils Percent Auto 69.8 % (45.5-73.1); Platelet Count Result 431 k/mm3 (150-375); Red Blood Count 4.85 M/mm3 (4.2-5.4); White Blood Count 11.7 K/mm3 (4.5-10.0)
[2023-01-18 16:12] LABS: Alanine Aminotransferase 48 U/L (6-35); Albumin Level 4.4 g/dL (3.5-5.1); Alkaline Phosphatase 112 U/L (38-126); Anion Gap 9 mmol/L (8-16); Aspartate Amino Transferase 31 U/L (14-36); Bilirubin,Total 0.4 mg/dL (0.2-1.3); Blood Urea Nitrogen 19 mg/dL (7-17); Carbon Dioxide 23 mmol/L (22-30); Chloride 103 mmol/L (98-107); Estimated Glomerular Filt Rate > 60; Glucose 178 mg/dL (65-110); Potassium 4.2 mmol/L (3.4-5.0); Sodium 135 mmol/L (137-145)
== END 2023-01-18 15:23 | disposition home or self-care (01) ==
PROVIDERS: PCP Family Medicine; Visit Provider Family Medicine
DX: E11.65 Type 2 diabetes mellitus with hyperglycemia (principal); K80.20 Calculus of gallbladder without cholecystitis without obstruction; R74.8 Abnormal levels of other serum enzymes
CPT/HCPCS: 36415; 80048; 80076; 85025

== ENCOUNTER 2023-01-29 15:03 | Outpatient (CLI) | payer MEDICARE, SELFPAY ==
--- NOTE | ~2023-01-29 | CT_ITS ---
EXAMINATION: CT abdomen pelvis w con DATE: 01/29/2023 15:41 INDICATION: Left lower quadrant pain TECHNIQUE: Computed tomography (CT) of the abdomen and pelvis was performed with 100 cc Omnipaque 350 intravenous contrast. The dose-length product was 1136.66 mGy-cm. Automated exposure control and iterative reconstruction technique were employed. COMPARISON: CT dated 01/05/2023 FINDINGS: lung bases are unremarkable. Heart size normal. No significant pleural or pericardial effu kathy. No significant vascular abnormality. No aneurysm. No lymphadenopathy. Fatty infiltration of the liver. Status post cholecystectomy with expected prominence of the bile pedro ts. The spleen, pancreas, adrenal glands and left kidney are unremarkable. There is a small cyst at t he lower pole of the right kidney with layering milk of calcium. There are changes of gastric bypass as well as small bowel anastomosis. There is small bowel dilation adjacent to the anastomosis. There is severe lumbar spondylosis with scoliosis. Bladder is moderately distended. No abnormal pelvic mass es or fluid collections. There are surgical changes consistent with ventral hernia repair. There are surgical fusion changes at L3-4. IMPRESSION: 1. Moderate bowel distention adjacent to small bowel anastomosis in the left mid abdomen. There is re tained fluid and fecal material at this level. Consider partial obstruction. Reviewed, dictated and finalized at location B. IMPRESSION: 1. Moderate bowel distention adjacent to small bowel anastomosis in the left mi d abdomen. There is retained fluid and fecal material at this level. Consider p artial obstruction.
[2023-01-29 16:21] LABS: Basophils Absolute Auto 0.1 K/mm3 (0.0-0.1); Basophils Percent Auto 0.8 % (0.2-1.2); Eosinophils Absolute Auto 0.4 K/mm3 (0-0.3); Eosinophils Percent Auto 3.6 % (0-4.4); Hematocrit 41.9 % (37.0-47.0); Hemoglobin 13.1 g/dL (12.0-15.0); Immature Granulocyte Absolute 0.09 K/mm3 (0.00-0.031); Immature Granulocyte Percent A 0.8 % (0-0.5); Lymphocytes Percent Auto 16.8 % (18.3-44.2); Mean Corpuscular HGB Conc 31.3 g/dl (32-36); Mean Corpuscular Hemoglobin 27.1 pg (26-34); Mean Corpuscular Volume 86.7 fl (80-100); Mean Platelet Volume 8.8 fl (7.4-10.4); Monocytes Percent Auto 8.2 % (2.6-8.5); Neutrophils Absolute Auto 8.3 K/mm3 (1.3-6.7); Neutrophils Percent Auto 69.8 % (45.5-73.1); Platelet Count Result 370 k/mm3 (150-375); Red Blood Count 4.83 M/mm3 (4.2-5.4); Red Cell Distribution Width 16.2 % (11.5-14.5); White Blood Count 11.9 K/mm3 (4.5-10.0)
[2023-01-29 16:43] LABS: Alanine Aminotransferase 47 U/L (6-35); Albumin Level 4.2 g/dL (3.5-5.1); Alkaline Phosphatase 85 U/L (38-126); Amylase 89 U/L (30-110); Anion Gap 7 mmol/L (8-16); Aspartate Amino Transferase 35 U/L (14-36); Bilirubin,Total 0.4 mg/dL (0.2-1.3); Blood Urea Nitrogen 21 mg/dL (7-17); Carbon Dioxide 25 mmol/L (22-30); Chloride 100 mmol/L (98-107); Estimated Glomerular Filt Rate > 60; Glucose 136 mg/dL (65-110); Lipase 89 U/L (23-300); Potassium 4.6 mmol/L (3.4-5.0); Sodium 132 mmol/L (137-145)
== END 2023-01-29 15:04 | disposition home or self-care (01) ==
LOC: ANHIMG 15:06
PROVIDERS: PCP Family Medicine; Visit Provider Family Medicine
DX: R10.32 Left lower quadrant pain (principal); K63.89 Other specified diseases of intestine
CPT/HCPCS: 36415; 74177; 80053; 82150; 83690; 85025; Q9967

== ENCOUNTER 2023-01-29 16:22 | Observation (INO) | payer MEDICARE, SELFPAY ==
[2023-01-29] VITALS (25 sets, daily range): BP systolic 89–122; BP diastolic 48–105; PULSE 74–92; RESP 15–20; TEMP 35.6–36.5; O2SAT 93–100; BMI 31.6
--- NOTE | ~2023-01-29 | XR_ITS ---
Supine and upright views of the abdomen Clinical history: Partial small bowel obstruction COMPARISON: 03/19/2018 Findings: Bowel gas pattern is nonspecific. No evidence for obstruction or free air. No abnormal mass lesion or calcification is seen. Stable lumbar fixation hardware and degenerative change in the lumb ar spine.. Impression: Nonspecific bowel gas pattern. Reviewed, dictated and finalized at [facility]. Impression: Nonspecific bowel gas pattern.
[2023-01-29 17:07] LABS: Basophils Absolute Auto 0.1 K/mm3 (0.0-0.1); Basophils Percent Auto 0.8 % (0.2-1.2); Eosinophils Absolute Auto 0.5 K/mm3 (0-0.3); Eosinophils Percent Auto 3.7 % (0-4.4); Hematocrit 42.6 % (37.0-47.0); Hemoglobin 13.2 g/dL (12.0-15.0); Immature Granulocyte Absolute 0.12 K/mm3 (0.00-0.031); Immature Granulocyte Percent A 0.9 % (0-0.5); Lymphocytes Absolute Auto 2.06 K/mm3 (0.9-3.2); Lymphocytes Percent Auto 15.9 % (18.3-44.2); Mean Corpuscular Hemoglobin 26.9 pg (26-34); Mean Corpuscular Volume 86.8 fl (80-100); Mean Platelet Volume 9.1 fl (7.4-10.4); Monocytes Absolute Auto 1.2 K/mm3 (0.1-0.6); Monocytes Percent Auto 8.9 % (2.6-8.5); Neutrophils Absolute Auto 9.1 K/mm3 (1.3-6.7); Neutrophils Percent Auto 69.8 % (45.5-73.1); Platelet Count Result 405 k/mm3 (150-375); Red Blood Count 4.91 M/mm3 (4.2-5.4); Red Cell Distribution Width 16.1 % (11.5-14.5)
[2023-01-29 17:19] LABS: Alanine Aminotransferase 47 U/L (6-35); Albumin Level 4.4 g/dL (3.5-5.1); Alkaline Phosphatase 85 U/L (38-126); Anion Gap 8 mmol/L (8-16); Aspartate Amino Transferase 33 U/L (14-36); Bilirubin,Total 0.4 mg/dL (0.2-1.3); Blood Urea Nitrogen 20 mg/dL (7-17); Calcium 9.2 mg/dL (8.4-10.2); Carbon Dioxide 24 mmol/L (22-30); Chloride 101 mmol/L (98-107); Estimated Glomerular Filt Rate > 60; Glucose 137 mg/dL (65-110); Potassium 4.7 mmol/L (3.4-5.0); Sodium 133 mmol/L (137-145)
[2023-01-29 17:20] LABS: Prothrombin Time 12.9 Seconds (11.1-14.7)
[2023-01-29 17:21] LABS: Partial Thromboplastin Time 23.9 SECONDS (22.3-36.8)
[2023-01-29 17:23] LABS: Appearance Urine Clear (Clear); Bacteria Urine None Seen /hpf; Bilirubin Urine Negative (Negative); Blood Urine Negative (Negative); Color Urine Yellow (Yellow); Glucose Urine UA 3+ mg/dL (Negative); Ketones Urine Negative (Negative); Leukocyte Esterase Ur 1+ LEU/UL (Negative); Nitrate Urine Negative (Negative); Non Pathogenic Casts 0-2; Protein Urine Negative (Negative); RBC Urine 0-2 /hpf (0-2); Squamous Epithelial Cell Urine Occasional /hpf (Few); Urobilinogen Urine 0.2 mg/dL (<2.0)
[2023-01-29 17:30] LABS: Add Urine Microscopic? YES; Specific Grav Ur 1.045 (1.001-1.035)
[2023-01-29 17:46] LABS: Lactic Acid Reflex 0.7 mmol/L (0.7-2.0)
[2023-01-29] MEDS: SODIUM CHLORIDE 0.9% IV 1,000 ML 999 ML IV CONT (17:50)
[2023-01-29] MEDS: ONDANSETRON INJ 4 MG/2 ML VIAL IV PUSH ×2 (17:50→21:28)
[2023-01-29] MEDS: HYDROmorphone HCL INJ (*CRX) 1 MG/ML SYR 0.5 MG IV PUSH ×2 (17:50→21:29)
--- NOTE | 2023-01-29 17:50 | ED.ABDPAIN ---
HPI - Abdominal Pain General Chief Complaint: Abdominal Pain Stated Complaint: Abodminal pain SBO Time Seen by Provider: 01/29/23 17:02 Source: patient Mode of arrival: ambulatory Limitations: no limitations History of Present Illness HPI narrative: This is a 67-year-old female with PMH of diabetes type 2, gastroparesis, HTN who presents to the ED with chief complaint of abdominal pain x1 day. Patient states she went to her PCP who ordered a CT scan and discovered a partial small bowel obstruction. She also had blood work done at that time. Patient states the pain is worse on the left upper and left lower quadrants. Somewhat radiates into the epigastrium. Reports nausea and vomiting, however she was able to eat at 11 AM this morning. Last bowel movement earlier this morning. Still passing gas. Denies fevers, chills, chest pain, shortness of breath, headache. Related Data Allergies Allergy/AdvReac Type Severity Reaction Status Date / Time adhesive Allergy Intermediate Blister Verified 01/29/23 16:23 benzoin Allergy Intermediate LOCAL Verified 01/29/23 16:23 IRRITATION/ BLISTERS fentanyl Allergy Intermediate Rash Verified 01/29/23 16:23 dulaglutide [From Trulicity] AdvReac Intermediate Abdominal Verified 01/29/23 16:23 Pain hydrocodone AdvReac Intermediate Itching Verified 01/29/23 16:23 trazadone Allergy Palpitation Uncoded 01/29/23 16:23 s Review of Systems Review of Systems: CONSTITUTIONAL: Denies fever, chills, or sweats. EYES: Denies visual changes, redness, or discharge. ENT: Denies rhinorrhea, congestion, sore throat, or otalgia. CARDIOVASCULAR: Denies chest pain, palpitations, or edema. RESPIRATORY: Denies cough or dyspnea. GASTROINTESTINAL: Endorses abdominal pain, nausea, vomiting. Denies diarrhea. Denies GI bleeding. GENITOURINARY: Denies dysuria or hematuria. SKIN: Denies rash or itching. MUSCULOSKELETAL: Denies back pain, joint pain, or myalgia. NEUROLOGIC: Denies headache, numbness, dizziness, or weakness. PSYCHIATRIC: Denies anxiety or depression. [facility] Past Medical History Medical History (Updated 01/29/23 @ 18:36 by Tye Jorgensen PA-C) Abdominal pain Achilles tendinitis of right lower extremity Adenomatous colon polyp After-cataract Allergies Anxiety and depression Arthritis of carpometacarpal (CMC) joint of left thumb At risk for falling BMI 28.0-28.9,adult BMI 29.0-29.9,adult BMI 31.0-31.9,adult BMI 32.0-32.9,adult BMI 33.0-33.9,adult BMI greater than 30 Cervical strain, acute Cholelithiasis Diabetes type 2, controlled Diabetes type 2, uncontrolled Dysuria Elevated liver enzymes Encounter for medication refill Essential (primary) hypertension Essential hypertension Exocrine pancreatic insufficiency Exostosis of right posterior calcaneus Gastroparesis IBS (irritable bowel syndrome) Impacted cerumen Incontinence of bowel Insomnia Irritable bowel syndrome with diarrhea Left shoulder pain Left shoulder strain Leg cramping Low back pain Mixed hyperlipidemia Neuropathy Nocturnal hypoxia COLIN (obstructive sleep apnea) Pain of right heel Restless leg Right hip pain Scalp cyst Screening mammogram, encounter for Small intestinal bacterial overgrowth (SIBO) Small vessel disease Trigger finger of right hand Type 2 diabetes mellitus without complications Surgical History Surgical History Achilles rupture, right (10/09/19) Family History Family History Father Hypertension Malignant neoplasm of prostate Family history of heart disease in male family member before age 55 Mother Hypertension Family history of diabetes mellitus in first degree relative Family history of heart disease in male family member before age 55 Other Diabetes mellitus Family history of arthritis Family history of cardiovascular disease Family history of gout Family history
--- NOTE | 2023-01-29 19:25 | PC.NURSE ---
attempt at ng placement in bilat nares unsuccessful. pt states had bad nasal fracture in the past and never had surgery to clear sinuses. per pa may withhold ng unless pt begins vomiting.
[2023-01-29] MEDS: SODIUM CHLORIDE 0.9% IV 1,000 ML 125 ML IV CONT (19:56)
--- NOTE | 2023-01-29 20:39 | PM.IMHP ---
H&P: HPI History of Present Illness Date/Time: 01/29/23 20:39 Chief Complaint: Abdominal pain Narrative: This is a 67-year-old female patient has a history of diabetes type 2, gastroparesis and hypertension. The patient has been having abdominal pain for 1 day. The patient followed up with her primary care doctor who ordered a CT scan in discovered that the patient has a partial small-bowel obstruction. She also had some lab work performed at that time. The patient stated she felt distended and is having upper quadrant abdominal pain. She endorses nausea and vomiting. She stated that she had a normal bowel movement earlier today and she is passing gas. She denies any fever chills. No shortness of breath. The patient has had multiple abdominal surgeries however she has not had any small-bowel obstructions in the past. Her white count was noted to be 13.0. Sodium level 133. The patient had 1+ leukocyte esterase and wbc's 11-20 but has no urinary symptoms. Abdominal pelvis CT was read as moderate bowel distension adjacent to small bowel anastomosis to the left mid abdomen. There is retain fluid and fecal material at this level. Consider partial obstruction. Surgery was consulted from the emergency room. An NG tube was attempted to bilateral nostrils but the patient has a deviated septum and they were unable to place the NG tube in the emergency room. The patient was given IV fluids, Zofran, and Dilaudid. The patient is being admitted to inpatient status on the date of service of 01/29/2023. Review of Systems Review of Systems: All systems reviewed & are unremarkable except as noted in HPI and below Constitutional: Constitutional: Reports as per HPI and Reports no additional constitutional complaints Eyes: Eyes: Reports as per HPI and Reports no additional eye complaints ENT: Reports system reviewed and no additional complaints, except as documented and Reports Normal hearing present Cardiovascular: Cardiovascular: Reports no additional cardiovascular complaints Respiratory: Respiratory: Reports no additional respiratory complaints and Reports no additional respiratory complaints Gastrointestinal: Gastrointestinal: Reports as per HPI and Reports no additional gastrointestinal complaints Musculoskeletal: Musculoskeletal: Reports no additional musculoskeletal complaints Integumentary/Breasts: Skin/Breast: Reports system reviewed and no additional complaints, except as docu and Reports as per HPI Neurologic: Reports system reviewed and no additional complaints, except as documented, Reports as per HPI and Reports Normal hearing present Psychiatric: Psychiatric: Reports no additional psychiatric complaints and Reports as per HPI Endocrine: Endocrine: Reports no additional endocrine complaints Hematologic/Lymphatic: Hematologic/Lymphatic: Reports no additional hematologic/lymphatic complaints Allergic/Immunologic: Allergic/Immunologic: Reports no additional allergic/immunologic complaints [facility] Past Medical History Medical History (Updated 01/30/23 @ 00:37 by Tracy Holt NP) Abdominal pain Achilles tendinitis of right lower extremity Adenomatous colon polyp After-cataract Allergies Anxiety and depression Arthritis of carpometacarpal (CMC) joint of left thumb At risk for falling BMI 28.0-28.9,adult BMI 29.0-29.9,adult BMI 31.0-31.9,adult BMI 32.0-32.9,adult BMI 33.0-33.9,adult BMI greater than 30 Cervical strain, acute Cholelithiasis Cystic mass of pancreas Diabetes type 2, controlled Diabetes type 2, uncontrolled Dysuria Elevated liver enzymes Encounter for medication refill Essential (primary) hypertension Essential hypertension Exocrine pancreatic insufficiency Exostosis of right posterior calcaneus Gastroparesis Hx of deep venous thrombosis IBS (irritable bowel syndrome) Impacted cerumen Incontinence of bowel Insomnia Irritable bowel syndrome with diarrhea Left shoulder pain Left shoulder strain Le
--- NOTE | 2023-01-29 20:40 | ADMGEN ---
This patient, Alee Melendez, was admitted to Medical Room 247-. Patient/family oriented to hospital policies and general routines including ID bracelet, bed and alarms, visiting hours, pain management, procedures, bathroom and other care routines, personal items, smoking policy, room service/diet, and visiting hours. Information on how to activate the Rapid Response Team has been discussed. Patient/Family are encouraged to report perceived risks to care and to ask questions if they do not understand what they are told or what they should do.
[2023-01-29] MEDS: LORazepam INJ (*CRX) 2 MG/ML VIAL 0.5 MG IV PUSH (22:50)
[2023-01-30] MEDS: rOPINIRole HCL 1 MG TABLET PO ×3 (00:20→17:25)
[2023-01-30] MEDS: SODIUM CHLORIDE 0.9% IV 1,000 ML 125 ML IV CONT (04:06)
[2023-01-30] MEDS: HYDROmorphone HCL INJ (*CRX) 1 MG/ML SYR 0.5 MG IV PUSH ×2 (04:06→09:00)
[2023-01-30] MEDS: ONDANSETRON INJ 4 MG/2 ML VIAL IV PUSH ×2 (04:06→09:08)
[2023-01-30 05:14] VITALS: BP 113/67; PULSE 88; RESP 20; TEMP 35.7; O2SAT 95
[2023-01-30 05:20] LABS: Glucose Point of Care 88 mg/dl (65-105)
[2023-01-30 05:48] LABS: Basophils Absolute Auto 0.1 K/mm3 (0.0-0.1); Basophils Percent Auto 1.2 % (0.2-1.2); Eosinophils Absolute Auto 0.5 K/mm3 (0-0.3); Eosinophils Percent Auto 5.3 % (0-4.4); Hematocrit 38.4 % (37.0-47.0); Hemoglobin 11.7 g/dL (12.0-15.0); Immature Granulocyte Absolute 0.09 K/mm3 (0.00-0.031); Immature Granulocyte Percent A 1.1 % (0-0.5); Lymphocytes Absolute Auto 1.42 K/mm3 (0.9-3.2); Lymphocytes Percent Auto 16.6 % (18.3-44.2); Mean Corpuscular HGB Conc 30.5 g/dl (32-36); Mean Corpuscular Hemoglobin 26.2 pg (26-34); Mean Corpuscular Volume 85.9 fl (80-100); Monocytes Absolute Auto 0.7 K/mm3 (0.1-0.6); Monocytes Percent Auto 8.3 % (2.6-8.5); Neutrophils Absolute Auto 5.8 K/mm3 (1.3-6.7); Neutrophils Percent Auto 67.5 % (45.5-73.1); Platelet Count Result 324 k/mm3 (150-375); Red Blood Count 4.47 M/mm3 (4.2-5.4); White Blood Count 8.6 K/mm3 (4.5-10.0)
[2023-01-30 05:49] LABS: Alanine Aminotransferase 37 U/L (6-35); Albumin Level 3.7 g/dL (3.5-5.1); Alkaline Phosphatase 72 U/L (38-126); Anion Gap 7 mmol/L (8-16); Aspartate Amino Transferase 26 U/L (14-36); Bilirubin,Total 0.5 mg/dL (0.2-1.3); Blood Urea Nitrogen 15 mg/dL (7-17); Calcium 8.1 mg/dL (8.4-10.2); Carbon Dioxide 25 mmol/L (22-30); Chloride 104 mmol/L (98-107); Estimated CRCL calculation 122 ml/min; Estimated Glomerular Filt Rate > 60; Glucose 90 mg/dL (65-110); Magnesium 2.1 mg/dL (1.6-2.3); Potassium 4.1 mmol/L (3.4-5.0); Sodium 136 mmol/L (137-145)
[2023-01-30 05:50] LABS: Hemoglobin A1C 8.6 % (<5.7)
[2023-01-30 05:54] LABS: Lactic Acid Reflex 0.5 mmol/L (0.7-2.0)
[2023-01-30 06:48] LABS: Thyroid Stimulating Hormone Reflex 0.814 uIU/mL (0.465-4.68)
[2023-01-30] MEDS: PANTOPRAZOLE SODIUM IV 40 MG VIAL IV PUSH ×2 (08:54→21:19)
[2023-01-30] MEDS: FLUTICASONE PROPIONATE 0.05% NA SPR 16 GM BTL (*BKC) 2 SPRAY NASAL (08:54)
--- NOTE | 2023-01-30 09:43 | PM.CNGS ---
Assessment and Plan Assessment and plan (1) Partial small bowel obstruction: Code(s): K56.600 - Partial intestinal obstruction, unspecified as to cause Status: Acute Assessment and Plan: CT suggests partial small bowel obstruction. Patient with significant history of multiple major abdominal surgeries as detailed in her history. Her last hernia repair in 2014, she required extensive adhesiolysis. This could be related to adhesions. ER was unsuccessful with NG tube placement. She is clinically improving and no longer having any nausea. Her obstructive series this morning showed a nonobstructive bowel gas pattern. Her abdominal exam is benign. We will start a clear liquid diet. Continue IV fluids until tolerating liquids. Encouraged her to be ambulating in the halls today. If she is unable to tolerate liquids and has obstructive symptoms, then we may need to consider a water soluble small bowel follow through to further evaluate. Will continue to monitor with serial abdominal exams. (2) Diabetes type 2, controlled: Code(s): E11.9 - Type 2 diabetes mellitus without complications Status: Acute (3) Essential hypertension: Code(s): I10 - Essential (primary) hypertension Status: Acute (4) COLIN (obstructive sleep apnea): Code(s): G47.33 - Obstructive sleep apnea (adult) (pediatric) Status: Acute (5) H/O gastric bypass: Code(s): Z98.84 - Bariatric surgery status Status: Resolved (6) History of major abdominal surgery: Code(s): Z98.890 - Other specified postprocedural states Status: Acute Assessment and Plan: Multiple previous abdominal surgeries as detailed in her history. During her last hernia repair in 2014, she also had extensive adhesiolysis requiring about 1.5 hours of operating time. Plan I have discussed the patient's case and plan of care with Dr. Hassan. Thank you for allowing us to see the patient in consultation and we will continue to follow along with you. History of Present Illness Consult details Consult date: 01/30/23 Reason for consult: other (Partial small bowel obstruction) Requesting physician: Tye Jorgensen PA-C Narrative: This is a 67-year-old woman with a history of type 2 diabetes mellitus, gastroparesis, hypertension, multiple other medical problems, and multiple previous abdominal surgeries. She had a Immanuel-en-Y gastric bypass in 1999. She subsequently had a hernia repair performed approximately 1 year after that. In total, she has had 5 hernia repairs in this area. Her last hernia repair in July of [address] Castro and she had massive adhesiolysis at that time requiring over 50% of operating time. She has additionally had a total abdominal hysterectomy with bilateral salpingo oophorectomy, delivery, and cholecystectomy. We have been asked to see the patient in surgical consultation for a partial small bowel obstruction. She reports an onset of epigastric and left upper quadrant abdominal pain yesterday around 10:00 a.m.. Her pain radiated from the left upper quadrant to the left lower quadrant. She states that most of her pain is on the left side of her abdomen. Her pain was coming in waves, which she compares to contractions. She reports associated nausea, but no vomiting. She was able to see her PCP yesterday in the office. He subsequently ordered labs and a stat CT scan of the abdomen and pelvis, which showed moderate bowel distention adjacent to a small bowel anastomosis in the left mid abdomen with retained fluid and fecal material at this level, suggesting possible partial small-bowel obstruction. She was directed to the ED for further evaluation. [place] [id number] in the ER, lactic acid normal. NG tube was ordered and placement was unsuccessful after multiple attempts. She reports having a severe nasal fracture after a fall a few years ago. She was admitted to the hospitalist
--- NOTE | 2023-01-30 10:34 | PM.IMPN ---
Progress Note: A&P Assessment and Plan (1) Partial small bowel obstruction: Code(s): K56.600 - Partial intestinal obstruction, unspecified as to cause Status: Acute Assessment and Plan: Concern for obstruction, surgery consult pending Advance diet as tolerated per surgery recommendations, improving with clear liquid diet (2) Diabetes type 2, controlled: Code(s): E11.9 - Type 2 diabetes mellitus without complications Status: Acute Assessment and Plan: Accu-Cheks every 6 hours with sliding scale insulin. A1c 8.6 Blood glucose reviewed 01/30 (3) Essential hypertension: Code(s): I10 - Essential (primary) hypertension Status: Acute Assessment and Plan: P.r.n. hydralazine Blood pressure reviewed 01/30 (4) COLIN (obstructive sleep apnea): Code(s): G47.33 - Obstructive sleep apnea (adult) (pediatric) Status: Acute Assessment and Plan: Offer CPAP and titrate to home settings. (5) Major depressive disorder, single episode, unspecified: Code(s): F32.9 - Major depressive disorder, single episode, unspecified Status: Acute Assessment and Plan: Restart home medications (6) GERD without esophagitis: Code(s): K21.9 - Gastro-esophageal reflux disease without esophagitis Status: Acute Assessment and Plan: IV Protonix Plan DVT prophylaxis with SCDs GI prophylaxis not indicated Code status full code Subjective Date/time seen: 01/30/23 10:34 Interval history: 67-year-old female patient has a history of diabetes type 2, gastroparesis and hypertension p/w abdominal pain x 1 day, thought to be 2/2 obstruction, ng unable to be placed, surg consulted. No overnight events noted. No chest pain or shortness of breath. No nausea, vomiting or diarrhea. No fevers or chills. Tolerating p.o. intake. +BM, +flatus. Review of Systems Review of Systems: 12 point review of systems was assessed and was negative except as noted in the HPI Exam Narrative: General: No acute distress, alert and oriented per baseline HEENT: Atraumatic, normocephalic, mucous membranes moist CV: Regular rate and rhythm, S1, S2 Lungs: Clear to auscultation bilaterally, no rales or crackles noted, no wheezes, good air entry Abdomen: Soft, mildly tender to palpation, somewhat distended Extremities: Normal to inspection Skin: No rashes noted, no lesions or wounds seen Psych: Euthymic, normal affect Objective Data Vital Signs Vital Signs: Vital Signs - 24 hr 01/29/23 16:38 01/29/23 16:49 01/29/23 16:50 Temperature 97.2 F L Pulse Rate 74 Respiratory Rate 16 Blood Pressure 89/70 L 119/76 Pulse Oximetry 97 95 96 Oxygen Delivery Room Air 01/29/23 17:00 01/29/23 17:01 01/29/23 17:15 Temperature Pulse Rate Respiratory Rate Blood Pressure 102/78 Pulse Oximetry 99 96 97 Oxygen Delivery 01/29/23 17:17 01/29/23 17:30 01/29/23 17:45 Temperature Pulse Rate Respiratory Rate Blood Pressure 107/76 Pulse Oximetry 98 96 96 Oxygen Delivery 01/29/23 17:46 01/29/23 18:00 01/29/23 18:01 Temperature Pulse Rate Respiratory Rate Blood Pressure 107/48 L 120/105 H Pulse Oximetry 95 96 96 Oxygen Delivery 01/29/23 18:15 01/29/23 18:16 01/29/23 18:30 Temperature Pulse Rate Respiratory Rate Blood Pressure 110/63 Pulse Oximetry 96 96 96 Oxygen Delivery 01/29/23 18:31 01/29/23 18:45 01/29/23 18:46 Temperature Pulse Rate Respiratory Rate Blood Pressure 98/69 L 118/62 Pulse Oximetry 95 95 96 Oxygen Delivery 01/29/23 19:00 01/29/23 19:01 01/29/23 19:15 Temperature Pulse Rate Respiratory Rate Blood Pressure 122/84 Pulse Oximetry 97 97 100 Oxygen Delivery 01/29/23 19:16 01/29/23 19:48 01/29/23 20:12 Temperature 97.7 F Pulse Rate 88 87 Respiratory Rate 18 15 Blood Pressure 10
[2023-01-30 12:06] LABS: Glucose Point of Care 98 mg/dl (65-105)
[2023-01-30] MEDS: SODIUM CHLORIDE 0.9% IV 1,000 ML 70 ML IV CONT (12:30)
[2023-01-30 14:00] VITALS: BP 146/100; PULSE 87; RESP 18; TEMP 36.4; O2SAT 98
[2023-01-30] MEDS: ROSUVASTATIN 10 MG TABLET 20 MG PO (15:26)
[2023-01-30] MEDS: LOSARTAN POTASSIUM 100 MG TABLET PO (15:26)
[2023-01-30] MEDS: THERAPEUTIC MULTIVITAMINS/MINERALS TAB (*BKC) 1 TABLET PO (15:26)
[2023-01-30] MEDS: GABAPENTIN 300 MG CAPSULE 900 MG PO ×2 (15:27→17:25)
[2023-01-30] MEDS: CYCLOBENZAPRINE HCL 5 MG TABLET PO ×3 (15:27→21:19)
[2023-01-30] MEDS: amLODIPine BESYLATE 5 MG TABLET PO (15:27)
[2023-01-30] MEDS: CHOLECALCIFEROL 1,000 UNITS TABLET 1000 UNITS PO (15:27)
[2023-01-30] MEDS: ASPIRIN 81 MG ENTERIC TABLET PO (15:28)
[2023-01-30] MEDS: PARoxetine 20 MG TABLET 40 MG PO (15:28)
[2023-01-30 15:35] VITALS: BP 129/97
[2023-01-30] MEDS: oxyCODONE/ACETAMINOPHEN (*CRX) 5-325 MG TABLET 1 TABLET PO (16:37)
[2023-01-30 17:07] LABS: Glucose Point of Care 175 mg/dl (65-105)
[2023-01-30 20:52] VITALS: BP 114/67; PULSE 84; RESP 20; TEMP 36; O2SAT 90
[2023-01-30] MEDS: LORazepam INJ (*CRX) 2 MG/ML VIAL 0.5 MG IV PUSH (21:19)
[2023-01-31] MEDS: SODIUM CHLORIDE 0.9% IV 1,000 ML 70 ML IV CONT (03:15)
[2023-01-31 04:37] VITALS: BP 118/77; PULSE 83; RESP 20; TEMP 36; O2SAT 92
[2023-01-31 04:52] LABS: Glucose Point of Care 167 mg/dl (65-105)
[2023-01-31 08:27] LABS: Glucose Point of Care 148 mg/dl (65-105)
[2023-01-31] MEDS: PARoxetine 20 MG TABLET 40 MG PO (08:48)
[2023-01-31] MEDS: LOSARTAN POTASSIUM 100 MG TABLET PO (08:48)
[2023-01-31] MEDS: amLODIPine BESYLATE 5 MG TABLET PO (08:48)
[2023-01-31] MEDS: ASPIRIN 81 MG ENTERIC TABLET PO (08:48)
[2023-01-31] MEDS: CYCLOBENZAPRINE HCL 5 MG TABLET PO ×2 (08:49→12:11)
[2023-01-31] MEDS: ROSUVASTATIN 10 MG TABLET 20 MG PO (08:49)
[2023-01-31] MEDS: rOPINIRole HCL 1 MG TABLET PO ×2 (08:49→12:11)
[2023-01-31] MEDS: CHOLECALCIFEROL 1,000 UNITS TABLET 1000 UNITS PO (08:49)
[2023-01-31] MEDS: THERAPEUTIC MULTIVITAMINS/MINERALS TAB (*BKC) 1 TABLET PO (08:49)
[2023-01-31] MEDS: FLUTICASONE PROPIONATE 0.05% NA SPR 16 GM BTL (*BKC) 2 SPRAY NASAL (08:50)
[2023-01-31] MEDS: PANTOPRAZOLE SODIUM IV 40 MG VIAL IV PUSH (08:50)
[2023-01-31] MEDS: GABAPENTIN 300 MG CAPSULE 900 MG PO ×2 (08:50→12:11)
[2023-01-31] MEDS: oxyCODONE/ACETAMINOPHEN (*CRX) 5-325 MG TABLET 1 TABLET PO (09:27)
--- NOTE | 2023-01-31 10:39 | PC.NURSE ---
On 01/31/23, the student, [Marjorie Kapoor], provided care and completed [facility] documentation on this patient. I have reviewed the student's documentation and agree with the findings.
--- NOTE | 2023-01-31 11:29 | PM.PNGS ---
Progress Note: A&P Assessment and Plan (1) Partial small bowel obstruction: Code(s): K56.600 - Partial intestinal obstruction, unspecified as to cause Status: Acute Assessment and Plan: Continues to improve. Bowels are moving. No signs of ongoing obstruction. Okay from a surgical standpoint to discharge later today if she is able to tolerate a solid diet. Follow-up only as needed. (2) H/O gastric bypass: Code(s): Z98.84 - Bariatric surgery status Status: Resolved Plan I have discussed the patient's case and plan of care with Dr. Hassan. Subjective Subjective Date/Time Seen: 01/31/23 11:29 Patient reports: tolerating a regular diet, flatus and bowel movement Interval history: Patient continues to feel better daily. No longer having any abdominal pain, but only some LUQ and LLQ soreness. She did have a short episode of nausea last night but no vomiting. No nausea this morning. Breakfast was the first solid food tray she has had and is tolerating this well. Still feels bloated. Had a very large BM last night and passing gas today. No other complaints at this time. Review of Systems Review of Systems: ROS unchanged Exam Const: General: no acute distress Orientation/consciousness: patient oriented x3 GI: Inspection: non-distended and other (large protuberant rounded abdomen, not significantly distended) GI Palp: Yes Soft to palpation, Yes Tenderness to palpation present (GI) (LUQ, LLQ), No Guarding due to palpation present (GI) and No Rebound tenderness present Auscultation: normal bowel sounds Psych: Mental Status: mental status grossly normal Insight: Good insight present (Psych) Objective Data Vital Signs Vital Signs: Vital Signs - 24 hr 01/30/23 14:00 01/30/23 15:35 01/30/23 20:52 Temperature 97.6 F 96.8 F L Pulse Rate 87 84 Respiratory Rate 18 20 Blood Pressure 146/100 H 129/97 H 114/67 Pulse Oximetry 98 90 01/31/23 04:37 Temperature 96.8 F L Pulse Rate 83 Respiratory Rate 20 Blood Pressure 118/77 Pulse Oximetry 92 Intake/Output Intake/Output: Intake & Output 01/28/23 01/29/23 01/30/23 01/31/23 23:59 23:59 23:59 23:59 Intake Total 1000 4800 2210 Output Total 3500 1600 Balance 1000 1300 610 Meds/Results Medications: Active Medications Generic Name Dose Route Start Last Admin Trade Name Freq PRN Reason Stop Dose Admin Acetaminophen 650 mg 01/30/23 11:18 Acetaminophen 325 Mg Tablet PO Q4H PRN Mild Pain (1-3) or Fever Amlodipine Besylate 5 mg 01/30/23 13:55 01/31/23 08:48 Amlodipine Besylate 5 Mg Tablet PO 5 mg QAM ANGELIA Administration Aspirin 81 mg 01/30/23 13:55 01/31/23 08:48 Aspirin 81 Mg Enteric Tablet PO 81 mg DAILY ANGELIA Administration Cyclobenzaprine HCl 5 mg 01/30/23 13:55 01/31/23 08:49 Cyclobenzaprine Hcl 5 Mg Tablet PO 5 mg QID ANGELIA Administration Dextrose 12.5 gm 01/30/23 00:47 Dextrose 50% 25 Gm/50 Ml Syringe IV PUSH PRN PRN Hypoglycemia Protocol Diclofenac Sodium 1 applic 01/30/23 00:39 Diclofenac Sodium 1% 100 Gm Gel (*Bkc) TOPICAL BID PRN pain Fluticasone Propionate 2 spray 01/30/23 09:00 01/31/23 08:50 Fluticasone Propionate 0.05% Na Spr 16 Gm Btl (*Bkc) NASAL 2 spray DAILY ANGELIA Administration Gabapentin 900 mg 01/30/23 13:55 01/31/23 08:50 Gabapentin 300 Mg Capsule PO 900 mg TID ANGELIA Administration Glucagon 1 mg 01/30/23 00:47 Glucagon For Inj 1 Mg Vial IM PRN PRN Hypoglycemia Protocol Glucose 15 gm 01/30/23 00:47 Glucose Oral Gel 15 Gm Of Glucse In 37.5 Gm Tube PO PRN PRN Hypoglycemia Protocol Hydralazine HCl 10 mg 01/30/23 00:48 Hydralazine Hcl 20 Mg/Ml Vial IV PUSH Q8H PRN Blood Pressure - High Hydromorphone HCl 0.5 mg 01/30/23 11:19 Hydromorphone Hcl Inj (*Crx) 1 Mg/Ml Syr IV PUSH Q2H PRN Pain Rated 7-10 Dextrose 1,000 mls @ 100
[2023-01-31 12:06] LABS: Glucose Point of Care 202 mg/dl (65-105)
[2023-01-31] MEDS: INSULIN ASPART (*BKC) 100 UNITS/ML SUB-Q (12:12)
[2023-01-31] MEDS: HYDROmorphone HCL INJ (*CRX) 1 MG/ML SYR 0.5 MG IV PUSH (12:34)
[2023-01-31 14:00] VITALS: BP 122/68; PULSE 99; RESP 18; TEMP 36.3; O2SAT 96
--- NOTE | 2023-01-31 14:06 | PCCCNOTE ---
On 01/31/23, the student, [Paradise Ayers ], provided care and completed [facility] documentation on this patient. I have reviewed the student's documentation and agree with the findings.
--- NOTE | 2023-01-31 15:07 | PM.DS ---
DS: Admitting Diagnosis Discharge Date 01/31/2023 Admitting Diagnosis Abdominal pain DS: Discharge Diagnosis Discharge Diagnosis (1) Partial small bowel obstruction: Code(s): K56.600 - Partial intestinal obstruction, unspecified as to cause Status: Acute Assessment and Plan: Concern for obstruction, surgery consult pending Advance diet as tolerated per surgery recommendations, improving with clear liquid diet (2) Diabetes type 2, controlled: Code(s): E11.9 - Type 2 diabetes mellitus without complications Status: Acute Assessment and Plan: Accu-Cheks every 6 hours with sliding scale insulin. A1c 8.6 Blood glucose reviewed 01/30 (3) Essential hypertension: Code(s): I10 - Essential (primary) hypertension Status: Acute Assessment and Plan: P.r.n. hydralazine Blood pressure reviewed 01/30 (4) COLIN (obstructive sleep apnea): Code(s): G47.33 - Obstructive sleep apnea (adult) (pediatric) Status: Acute Assessment and Plan: Offer CPAP and titrate to home settings. (5) Major depressive disorder, single episode, unspecified: Code(s): F32.9 - Major depressive disorder, single episode, unspecified Status: Acute Assessment and Plan: Restart home medications (6) GERD without esophagitis: Code(s): K21.9 - Gastro-esophageal reflux disease without esophagitis Status: Acute Assessment and Plan: IV Protonix Plan DVT prophylaxis with SCDs GI prophylaxis not indicated Code status full code DS: Summary Hospital Course Reason for hospitalization: Chief Complaint: Abdominal pain Narrative: This is a 67-year-old female patient has a history of diabetes type 2, gastroparesis and hypertension.? The patient has been having abdominal pain for 1 day.? The patient followed up with her primary care doctor who ordered a CT scan in discovered that the patient has a partial small-bowel obstruction.? She also had some lab work performed at that time.? The patient stated she felt distended and is having upper quadrant abdominal pain.? She endorses nausea and vomiting.? She stated that she had a normal bowel movement earlier today and she is passing gas.? She denies any fever chills.? No shortness of breath.? The patient has had multiple abdominal surgeries however she has not had any small-bowel obstructions in the past.? Her white count was noted to be 13.0.? Sodium level 133.? The patient had 1+ leukocyte esterase and wbc's 11-20 but has no urinary symptoms.? Abdominal pelvis CT was read as moderate bowel distension adjacent to small bowel anastomosis to the left mid abdomen.? There is retain fluid and fecal material at this level.? Consider partial obstruction.? Surgery was consulted from the emergency room.? An NG tube was attempted to bilateral nostrils but the patient has a deviated septum and they were unable to place the NG tube in the emergency room.? The patient was given IV fluids, Zofran, and Dilaudid.? The patient is being admitted to inpatient status on the date of service of 01/29/2023. Hospital Course: Patient with small bowel obstruction her clinical symptoms are improving able to tolerate diet, seen by surgery service patient can be discharged home today. Time Spent with Patient Time attestation: Total time spent providing and/or coordinating discharge services: Exam Narrative: General: No acute distress, alert and oriented per baseline HEENT: Atraumatic, normocephalic, mucous membranes moist CV: Regular rate and rhythm, S1, S2 Lungs: Clear to auscultation bilaterally, no rales or crackles noted, no wheezes, good air entry Abdomen: Soft, mildly tender to palpation, somewhat distended Extremities: Normal to inspection Skin: No rashes noted, no lesions or wounds seen Psych: Euthymic, normal affect DS: Data Data Completed and Pending Labs on day of discharge: Labs from last 2
== END 2023-01-31 15:58 | disposition home or self-care (01) ==
LOC: ANHED 18:46 → ANH2MED 20:54
PROVIDERS: Emergency Medicine; Nurse Practitioner; Admitting Provider Internal Medicine; Emergency Provider Physician Assistant; PCP Family Medicine; Visit Provider Family Medicine
DX: K56.600 Partial intestinal obstruction, unspecified as to cause (principal); E11.43 Type 2 diabetes mellitus with diabetic autonomic (poly)neuropathy; K31.84 Gastroparesis; I10 Essential (primary) hypertension; G47.33 Obstructive sleep apnea (adult) (pediatric); K21.9 Gastro-esophageal reflux disease without esophagitis; F32.9 Major depressive disorder, single episode, unspecified; F41.9 Anxiety disorder, unspecified; K58.9 Irritable bowel syndrome, unspecified; D72.829 Elevated white blood cell count, unspecified; E78.2 Mixed hyperlipidemia; Z98.84 Bariatric surgery status; Z98.890 Other specified postprocedural states; Z87.891 Personal history of nicotine dependence; Z79.82 Long term (current) use of aspirin; Z79.84 Long term (current) use of oral hypoglycemic drugs; Z79.51 Long term (current) use of inhaled steroids; Z79.891 Long term (current) use of opiate analgesic; Z79.899 Other long term (current) drug therapy; Z82.49 Family history of ischemic heart disease and other diseases of the circulatory system; Z83.3 Family history of diabetes mellitus
CPT/HCPCS: 36415; 74019; 74177; 80053; 81001; 82150; 82948; 83036; 83605; 83690; 83735; 84443; 85025; 85610; 85730; 87086; 87088; 96361; 96374; 96375; 96376; 99285; A9270; C9113; G0378; J1170; J1815; J2060; J2405; J7030; Q9967

== ENCOUNTER 2023-02-13 13:28 | Outpatient (RCR) | payer MEDICARE, SELFPAY | END 2023-05-07 08:51 | disposition home or self-care (01) | LOC: ANHDMC 13:28 | PROVIDERS: PCP Family Medicine; Visit Provider Family Medicine | DX: E11.65 Type 2 diabetes mellitus with hyperglycemia (principal); Z71.89 Other specified counseling | CPT/HCPCS: G0108 ==

== ENCOUNTER 2023-03-09 09:47 | Outpatient (CLI) | payer MEDICARE, SELFPAY ==
[2023-03-09 10:33] LABS: Basophils Absolute Auto 0.1 K/mm3 (0.0-0.1); Basophils Percent Auto 1.4 % (0.2-1.2); Eosinophils Absolute Auto 0.5 K/mm3 (0-0.3); Eosinophils Percent Auto 4.6 % (0-4.4); Hematocrit 42.1 % (37.0-47.0); Hemoglobin 12.8 g/dL (12.0-15.0); Immature Granulocyte Absolute 0.11 K/mm3 (0.00-0.031); Immature Granulocyte Percent A 1.1 % (0-0.5); Lymphocytes Absolute Auto 1.71 K/mm3 (0.9-3.2); Lymphocytes Percent Auto 17.5 % (18.3-44.2); Mean Corpuscular HGB Conc 30.4 g/dl (32-36); Mean Corpuscular Hemoglobin 26.9 pg (26-34); Mean Corpuscular Volume 88.6 fl (80-100); Mean Platelet Volume 9.2 fl (7.4-10.4); Monocytes Absolute Auto 1.1 K/mm3 (0.1-0.6); Monocytes Percent Auto 10.7 % (2.6-8.5); Neutrophils Absolute Auto 6.3 K/mm3 (1.3-6.7); Neutrophils Percent Auto 64.7 % (45.5-73.1); Platelet Count Result 393 k/mm3 (150-375); Red Blood Count 4.75 M/mm3 (4.2-5.4); Red Cell Distribution Width 15.4 % (11.5-14.5); White Blood Count 9.8 K/mm3 (4.5-10.0)
[2023-03-09 10:45] LABS: Alanine Aminotransferase 49 U/L (6-35); Albumin Level 4.4 g/dL (3.5-5.1); Alkaline Phosphatase 83 U/L (38-126); Anion Gap 9 mmol/L (8-16); Aspartate Amino Transferase 53 U/L (14-36); Bilirubin,Total 0.5 mg/dL (0.2-1.3); Blood Urea Nitrogen 19 mg/dL (7-17); Calcium 8.2 mg/dL (8.4-10.2); Carbon Dioxide 25 mmol/L (22-30); Chloride 101 mmol/L (98-107); Estimated Glomerular Filt Rate > 60; Glucose 104 mg/dL (65-110); Magnesium 2.3 mg/dL (1.6-2.3); Potassium 4.2 mmol/L (3.4-5.0); Sodium 135 mmol/L (137-145)
== END 2023-03-09 09:48 | disposition home or self-care (01) ==
PROVIDERS: PCP Family Medicine; Visit Provider Family Medicine
DX: R10.32 Left lower quadrant pain (principal)
CPT/HCPCS: 36415; 80053; 83735; 85025

== ENCOUNTER 2023-03-19 16:19 | Emergency (ER) | payer MEDICARE, SELFPAY ==
--- NOTE | ~2023-03-19 | XR_ITS ---
EXAMINATION: XR ankle LT min 3V, XR foot LT min 3V DATE: 03/19/2023 17:16 INDICATION: Left foot and ankle pain post fall TECHNIQUE: 1. Anteroposterior, mortise, additional oblique and lateral view of the left ankle were obtained. 2. Dorsoplantar, two oblique and lateral views of the left foot were obtained. COMPARISON: None. FINDINGS: Instrumented left talonavicular arthrodesis which is fixed with a pair of cannulated compression scre ws and a dorsal/medial wire plate and screws. Alignment remains essentially anatomic. No acute fractu re. Polyarticular osteoarthritis, mild to moderate severity at the tibiotalar and calcaneocuboid join ts and mild at the subtalar, naviculocuneiform, first metatarsophalangeal and multiple tarsometatarsa l and interphalangeal joints. Small Achilles and plantar calcaneal spurs. Small heterotopic ossicles along the tip the medial malleolus likely sequela of old trauma. Additional small amount of heterotop ic ossification also likely related to old trauma along the distal tibiofibular syndesmosis with sugg estion of an adjacent old healed distal fibular fracture deformity. Soft tissues are unremarkable. No ankle joint effusion. IMPRESSION: 1. Postoperative, degenerative and old traumatic changes at the left foot and ankle. No acute osseous abnormality. Reviewed, dictated and finalized at location A. IMPRESSION: 1. Postoperative, degenerative and old traumatic changes at the left foot and a nkle. No acute osseous abnormality.
--- NOTE | ~2023-03-19 | XR_ITS ---
EXAMINATION: XR knee LT 3V DATE: 03/19/2023 17:16 INDICATION: Left knee pain post fall TECHNIQUE: Anteroposterior, oblique and crosstable lateral views of the left knee were obtained COMPARISON: 06/08/2022 FINDINGS: Alignment is normal. No fracture. No left knee joint effusion/layering lipohemarthrosis. Tricompartm ental osteoarthritis at the left knee with at least mild joint space narrowing the medial compartment which could be underestimated on nonweightbearing imaging as well as small to moderate-sized margina l osteophytes in all 3 compartments. Soft tissues are unremarkable. IMPRESSION: 1. At least mild tricompartmental osteoarthritis at the left knee. No acute osseous abnormality. Reviewed, dictated and finalized at location A. IMPRESSION: 1. At least mild tricompartmental osteoarthritis at the left knee. No acute oss eous abnormality.
[2023-03-19 16:21] VITALS: BP 138/85; PULSE 91; RESP 16; TEMP 36.3; O2SAT 94
--- NOTE | 2023-03-19 16:50 | ED.EXTPRO ---
HPI - Extremity Problem General Chief complaint: Extremity Problem,Nontraumatic Stated complaint: left foot pain Time Seen by Provider: 03/19/23 16:40 Source: patient Mode of arrival: ambulatory Limitations: no limitations History of Present Illness HPI Narrative: Patient 67 years old white female with history of multiple falls because of peripheral neuropathy, had a fall yesterday her foot got caught in the house at the backyard. No specific injury. Few minutes later started having pain at the left calf area and left foot, leg numbness, pain, more pain at the left heel area. She denies other injuries. History of lower back surgery because of sciatica. Currently on gabapentin for peripheral neuropathy. She denies any fever, chills, nausea, vomiting, abdominal pain, chest pain. Or any focal neurodeficit. Related Data Home Medications Medication Instructions Recorded Confirmed amlodipine 5 mg tablet 5 mg PO QAM 01/29/23 03/13/23 metformin 500 mg tablet,extended 1,000 mg PO QPM 01/29/23 03/13/23 release 24 hr multivitamin h-[id number]-[id number] 1 tablet PO DAILY 01/29/23 03/13/23 fumarate 18 mg-vitamin K 25 mcg tablet omeprazole 40 mg capsule,delayed 40 mg PO DAILY 01/29/23 03/13/23 release Allergies Allergy/AdvReac Type Severity Reaction Status Date / Time adhesive Allergy Intermediate Blister Verified 03/19/23 16:19 benzoin Allergy Intermediate LOCAL Verified 03/19/23 16:19 IRRITATION/ BLISTERS fentanyl Allergy Intermediate Rash Verified 03/19/23 16:19 dulaglutide [From Trulicity] AdvReac Intermediate Abdominal Verified 03/19/23 16:19 Pain hydrocodone AdvReac Intermediate Itching Verified 03/19/23 16:19 trazadone Allergy Palpitation Uncoded 03/19/23 16:19 s [facility] Past Medical History Medical History (Updated 03/19/23 @ 17:48 by Jordan Shukla MD) Abnormal blood cell count Achilles tendinitis of right lower extremity Adenomatous colon polyp Allergies Anxiety and depression Arthritis of carpometacarpal (CMC) joint of left thumb At risk for falling BMI 31.0-31.9,adult Cervical strain, acute Cholelithiasis Chronic pain Cystic mass of pancreas Diabetes type 2, uncontrolled Dysuria Elevated liver enzymes Essential (primary) hypertension Exocrine pancreatic insufficiency Exostosis of right posterior calcaneus Gastroparesis Hx of deep venous thrombosis IBS (irritable bowel syndrome) Impacted cerumen Incontinence of bowel Insomnia Irritable bowel syndrome with diarrhea Left shoulder strain Leg cramping Low back pain Lumbar spondylosis with myelopathy Mixed hyperlipidemia Neuropathy Nocturnal hypoxia COLIN (obstructive sleep apnea) Pain of right heel Restless leg Right hip pain Scalp cyst Screening mammogram, encounter for Small intestinal bacterial overgrowth (SIBO) Small vessel disease Trigger finger of right hand Type 2 diabetes mellitus without complications Surgical History Surgical History Achilles rupture, right (10/09/19) H/O cataract extraction H/O colonoscopy with polypectomy H/O dilation and curettage X7 H/O gastric bypass 2000 H/O hernia repair X5 H/O: hysterectomy BERNARDINO BSO History of back surgery Hx of cholecystectomy S/P rotator cuff repair S/P tonsillectomy and adenoidectomy Total knee replacement status Family History Family History Father Hypertension Malignant neoplasm of prostate Family history of heart disease in male family member before age 55 Mother Hypertension Family history of diabetes mellitus in first degree relative Family history of heart disease in male family member before age 55 Other Diabetes mellitus Family history of arthritis Family history of cardiovascular disease Family history of gout Family history of malignant neoplasm Social History Social History
[2023-03-19 17:11] LABS: Basophils Absolute Auto 0.1 K/mm3 (0.0-0.1); Basophils Percent Auto 1.1 % (0.2-1.2); Eosinophils Absolute Auto 0.4 K/mm3 (0-0.3); Eosinophils Percent Auto 5.2 % (0-4.4); Hematocrit 39.1 % (37.0-47.0); Hemoglobin 12.1 g/dL (12.0-15.0); Immature Granulocyte Absolute 0.09 K/mm3 (0.00-0.031); Immature Granulocyte Percent A 1.1 % (0-0.5); Lymphocytes Absolute Auto 1.52 K/mm3 (0.9-3.2); Lymphocytes Percent Auto 18.3 % (18.3-44.2); Mean Corpuscular HGB Conc 30.9 g/dl (32-36); Mean Corpuscular Hemoglobin 27.1 pg (26-34); Mean Corpuscular Volume 87.5 fl (80-100); Mean Platelet Volume 8.7 fl (7.4-10.4); Monocytes Absolute Auto 0.9 K/mm3 (0.1-0.6); Monocytes Percent Auto 11.2 % (2.6-8.5); Neutrophils Absolute Auto 5.3 K/mm3 (1.3-6.7); Neutrophils Percent Auto 63.1 % (45.5-73.1); Platelet Count Result 307 k/mm3 (150-375); Red Blood Count 4.47 M/mm3 (4.2-5.4); Red Cell Distribution Width 15.3 % (11.5-14.5); White Blood Count 8.3 K/mm3 (4.5-10.0)
[2023-03-19 17:29] LABS: Alanine Aminotransferase 41 U/L (6-35); Albumin Level 3.7 g/dL (3.5-5.1); Alkaline Phosphatase 97 U/L (38-126); Anion Gap 4 mmol/L (8-16); Aspartate Amino Transferase 48 U/L (14-36); Bilirubin,Total 0.4 mg/dL (0.2-1.3); Blood Urea Nitrogen 18 mg/dL (7-17); Calcium 9.1 mg/dL (8.4-10.2); Carbon Dioxide 31 mmol/L (22-30); Chloride 100 mmol/L (98-107); Estimated CRCL calculation 80 ml/min; Estimated Glomerular Filt Rate > 60; Glucose 111 mg/dL (65-110); Sodium 135 mmol/L (137-145)
[2023-03-19 17:32] LABS: D Dimer 1.14 ug/mL (<0.48)
[2023-03-19] MEDS: ENOXAPARIN 80 MG/0.8 ML SYRINGE 90 MG SUB-Q (18:12)
== END 2023-03-19 18:29 | disposition home or self-care (01) ==
PROVIDERS: Emergency Provider Emergency Medicine; PCP Family Medicine
DX: M79.662 Pain in left lower leg (principal); E11.42 Type 2 diabetes mellitus with diabetic polyneuropathy; I10 Essential (primary) hypertension; E11.43 Type 2 diabetes mellitus with diabetic autonomic (poly)neuropathy; K31.84 Gastroparesis; E11.51 Type 2 diabetes mellitus with diabetic peripheral angiopathy without gangrene; I73.9 Peripheral vascular disease, unspecified; E78.2 Mixed hyperlipidemia; M18.9 Osteoarthritis of first carpometacarpal joint, unspecified; G47.33 Obstructive sleep apnea (adult) (pediatric); G25.81 Restless legs syndrome; K86.89 Other specified diseases of pancreas; K58.0 Irritable bowel syndrome with diarrhea; Z98.84 Bariatric surgery status; R29.6 Repeated falls; Z91.81 History of falling; Z96.659 Presence of unspecified artificial knee joint; Z86.010 Personal history of colon polyps; Z86.718 Personal history of other venous thrombosis and embolism; Z87.891 Personal history of nicotine dependence; Z98.49 Cataract extraction status, unspecified eye; Z90.710 Acquired absence of both cervix and uterus; Z90.722 Acquired absence of ovaries, bilateral; Z90.79 Acquired absence of other genital organ(s); Z90.49 Acquired absence of other specified parts of digestive tract; Z79.84 Long term (current) use of oral hypoglycemic drugs; M17.12 Unilateral primary osteoarthritis, left knee; W01.0XXA Fall on same level from slipping, tripping and stumbling without subsequent striking against object, initial encounter
CPT/HCPCS: 36415; 73562; 73610; 73630; 80053; 85025; 85380; 96372; 99284; J1650

== ENCOUNTER 2023-03-20 07:24 | Outpatient (CLI) | payer MEDICARE, SELFPAY ==
--- NOTE | ~2023-03-20 | US_ITS ---
Duplex Sonography of the left extremity: Indication: Pain Findings: Sagittal and transverse B-mode images as well as color-flow imaging were performed on the l eft femoral and popliteal veins. B-mode examination was done without and with compression in the tra nsverse plane. There is good visualization of the common femoral, proximal profunda femoral, superfi cial femoral, greater saphenous, and popliteal veins. Normal flow was seen on color-flow imaging. No rmal compressibility was demonstrated. Visualized left calf veins are also patent. Impression: No evidence of deep vein thrombosis involving the left lower extremity. Reviewed, dictated and finalized at location M. Impression: No evidence of deep vein thrombosis involving the left lower extremity.
== END 2023-03-20 07:25 | disposition home or self-care (01) ==
PROVIDERS: PCP Family Medicine; Visit Provider Emergency Medicine
DX: M79.605 Pain in left leg (principal)
CPT/HCPCS: 93971

== ENCOUNTER 2023-04-05 13:32 | Emergency (ER) | payer MEDICARE, SELFPAY ==
--- NOTE | ~2023-04-05 | CT_ITS ---
EXAMINATION: CT brain wo con DATE: 04/05/2023 16:29 INDICATION: fall, headache . TECHNIQUE: Computed tomography (CT) of the head was performed without intravenous contrast. The mA wa s adjusted according to patient size. Iterative reconstruction technique was employed. The dose-lengt h product was 605.33 mGy-cm. COMPARISON: 07/22/2022. FINDINGS: No acute intracranial hemorrhage or extra-axial fluid collection. No hydrocephalus, mass, or herniation. No acute ischemic infarct. Unremarkable dural venous sinus attenuation. No acute osseous abnormality. Left maxillary air-fluid level, small retention cyst or polyp in the left middle ethmoid air cells, t he remaining aerated spaces are clear. Bilateral lens replacements. Mild chronic white matter changes. IMPRESSION: No acute intracranial process. Left maxillary sinus findings may reflect acute sinusitis in the appro priate clinical context. Reviewed, dictated and finalized at [facility], located within [facility]. IMPRESSION: No acute intracranial process. Left maxillary sinus findings may reflect acute sinusitis in the appropriate clinical context.
--- NOTE | ~2023-04-05 | XR_ITS ---
EXAMINATION: XR foot LT min 3V DATE: 04/05/2023 16:48 INDICATION: Left foot pain TECHNIQUE: Dorsoplantar, lateral, and two oblique views of the left foot were obtained. COMPARISON: 03/19/2023. FINDINGS: Talonavicular arthrodesis is again noted. There is no evidence of hardware failure or loose camilo. There is no acute fracture. There is lateral soft tissue swelling of the foot. There is an old fracture of the medial malleolus with nonunion. IMPRESSION: 1. No acute osseous abnormality. Reviewed, dictated and finalized at location [facility].
--- NOTE | ~2023-04-05 | XR_ITS ---
EXAM: XR hand LT min 3V DATE: 04/05/2023 16:48 HISTORY: fall, pain . COMPARISON: 07/17/2022, images only. FINDINGS: Decreased mineralization. No fracture or dislocation. No lytic or blastic lesion. Scattere d osteoarthritic changes, most severe at the trapeziometacarpal joint. No erosion or periosteal baumann e. Soft tissues within normal limits. IMPRESSION: No acute osseous finding in the left hand. Reviewed, dictated and finalized at location K.
--- NOTE | ~2023-04-05 | CT_ITS ---
EXAMINATION: CT cervical spine wo con DATE: 04/05/2023 16:31 INDICATION: fall TECHNIQUE: Computed tomography (CT) of the cervical spine was performed without intravenous contrast. Automated exposure control and iterative reconstruction technique were employed. The dose-length pro duct was 459.59 mGy-cm. COMPARISON: 07/22/2022. FINDINGS: Vertebral Body Alignment: Intact. Cervical spine straightening as can occur with positioning or muscl e spasm. Stable grade 1 degenerative anterolisthesis at C3-4. Craniocervical and atlantoaxial alignment: Moderate degenerative change. Alignment intact. Osseous structures/fracture: No evidence of a lytic or blastic process in the visualized spine. No e vidence of acute fracture. Uncomplicated appearing ACDF hardware at C5-6. Cervical soft tissues: The paraspinal soft tissues planes are maintained. Degenerative changes: Degenerative changes, without severe neural foraminal or central canal narrowin g. IMPRESSION: No acute fracture or traumatic malalignment in the cervical spine. Reviewed, dictated and finalized at location K.
--- NOTE | ~2023-04-05 | XR_ITS ---
EXAM: XR knee LT 3V DATE: 04/05/2023 16:48 HISTORY: fall, pain . COMPARISON: 03/19/2023. FINDINGS: Decreased mineralization. No fracture or dislocation. No lytic or blastic lesion. Tricompa rtmental left knee osteoarthritis. No erosion or periosteal change. Soft tissues within normal limits . Large volume joint fluid. IMPRESSION: No acute osseous finding in the left knee. Large left knee joint effusion. Reviewed, dictated and finalized at location K. IMPRESSION: No acute osseous finding in the left knee. Large left knee joint ef fusion.
--- NOTE | ~2023-04-05 | XR_ITS ---
XR hip LT 2V w AP pelvis 04/05/2023 16:48 Indication: Left hip pain after fall Procedure: AP pelvis and 2 views left hip Comparison: No prior studies for comparison. Findings: No fracture, subluxation or dislocation. Sacral foramen are symmetric. Pelvic rings are int act. Impression: 1: No significant bone or joint abnormality. Reviewed, dictated and finalized at location L. Impression: 1: No significant bone or joint abnormality.
[2023-04-05 13:33] VITALS: BP 117/70; PULSE 105; RESP 17; TEMP 36.9; O2SAT 95
--- NOTE | 2023-04-05 16:10 | ED.FALL ---
HPI - Fall General Chief Complaint: Fall Stated Complaint: fall yesterday/ left sided pain Time Seen by Provider: 04/05/23 15:18 History of Present Illness HPI Narrative: Patient is a 67-year-old female presenting after a fall. Patient states that she was working in her garden yesterday when she tripped and she fell on her left side. She did strike her head but she did not lose consciousness. States that she has a severe headache. She complains of left foot, knee, hip, hand pain. No numbness or weakness. No chest pain or abdominal pain. No nausea or vomiting. Denies further complaints. Related Data Home Medications Medication Instructions Recorded Confirmed amlodipine 5 mg tablet 5 mg PO QAM 01/29/23 04/17/23 multivitamin [id number] 1 tablet PO DAILY 01/29/23 04/17/23 fumarate 18 mg-vitamin K 25 mcg tablet omeprazole 40 mg capsule,delayed 40 mg PO DAILY 01/29/23 04/17/23 release dapagliflozin propanediol 5 mg 5 mg PO DAILY 04/17/23 04/17/23 tablet (Farxiga) Allergies Allergy/AdvReac Type Severity Reaction Status Date / Time adhesive Allergy Intermediate Blister Verified 04/17/23 09:55 benzoin Allergy Intermediate LOCAL Verified 04/17/23 09:55 IRRITATION/ BLISTERS fentanyl Allergy Intermediate Rash Verified 04/17/23 09:55 dulaglutide [From [facility]] AdvReac Intermediate Abdominal Verified 04/17/23 09:55 Pain hydrocodone AdvReac Intermediate Itching Verified 04/17/23 09:55 trazadone Allergy Palpitation Uncoded 04/17/23 09:55 s Review of Systems Review of Systems: All systems reviewed & are unremarkable except as noted in HPI and below PMFSH Past Medical History Medical History Abnormal blood cell count Achilles tendinitis of right lower extremity Adenomatous colon polyp Allergies Anxiety and depression Arthritis of carpometacarpal (CMC) joint of left thumb At risk for falling BMI 31.0-31.9,adult Cervical strain, acute Cholelithiasis Chronic pain Cystic mass of pancreas Diabetes type 2, uncontrolled Dysuria Elevated liver enzymes Essential (primary) hypertension Exocrine pancreatic insufficiency Exostosis of right posterior calcaneus Gastroparesis Hx of deep venous thrombosis IBS (irritable bowel syndrome) Impacted cerumen Incontinence of bowel Insomnia Irritable bowel syndrome with diarrhea Left shoulder strain Leg cramping Low back pain Lumbar spondylosis with myelopathy Mixed hyperlipidemia Neuropathy Nocturnal hypoxia COLIN (obstructive sleep apnea) Pain of right heel Restless leg Right hip pain Scalp cyst Screening mammogram, encounter for Small intestinal bacterial overgrowth (SIBO) Small vessel disease Trigger finger of right hand Type 2 diabetes mellitus without complications Surgical History Surgical History Achilles rupture, right (10/09/19) H/O cataract extraction H/O colonoscopy with polypectomy H/O dilation and curettage X7 H/O gastric bypass 2000 H/O hernia repair X5 H/O: hysterectomy BERNARDINO BSO History of back surgery Hx of cholecystectomy S/P rotator cuff repair S/P tonsillectomy and adenoidectomy Total knee replacement status Family History Family History Father Hypertension Malignant neoplasm of prostate Family history of heart disease in male family member before age 55 Mother Hypertension Family history of diabetes mellitus in first degree relative Family history of heart disease in male family member before age 55 Other Diabetes mellitus Family history of arthritis Family history of cardiovascular disease Family history of gout Family history of malignant neoplasm Social History Social History Social History: The patient is she has 1 son. She lives alone. 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
[2023-04-05] MEDS: ACETAMINOPHEN 500 MG TABLET 1000 MG PO (16:32)
[2023-04-05] MEDS: IBUPROFEN 400 MG TABLET 800 MG PO (16:33)
== END 2023-04-05 18:20 | disposition home or self-care (01) ==
PROVIDERS: Emergency Provider Emergency Medicine; PCP Family Medicine
DX: S99.922A Unspecified injury of left foot, initial encounter (principal); R51.9 Headache, unspecified; M25.462 Effusion, left knee; I10 Essential (primary) hypertension; E78.2 Mixed hyperlipidemia; K86.81 Exocrine pancreatic insufficiency; E11.43 Type 2 diabetes mellitus with diabetic autonomic (poly)neuropathy; K31.84 Gastroparesis; E11.40 Type 2 diabetes mellitus with diabetic neuropathy, unspecified; K58.0 Irritable bowel syndrome with diarrhea; M18.9 Osteoarthritis of first carpometacarpal joint, unspecified; G47.33 Obstructive sleep apnea (adult) (pediatric); G25.81 Restless legs syndrome; Z98.49 Cataract extraction status, unspecified eye; Z90.710 Acquired absence of both cervix and uterus; Z98.84 Bariatric surgery status; Z96.659 Presence of unspecified artificial knee joint; Z86.010 Personal history of colon polyps; Z86.718 Personal history of other venous thrombosis and embolism; Z87.891 Personal history of nicotine dependence; Z90.49 Acquired absence of other specified parts of digestive tract; Z79.82 Long term (current) use of aspirin; Z79.84 Long term (current) use of oral hypoglycemic drugs; W01.0XXA Fall on same level from slipping, tripping and stumbling without subsequent striking against object, initial encounter
CPT/HCPCS: 70450; 72125; 73130; 73502; 73562; 73630; 99284; A9270

== ENCOUNTER 2023-04-13 11:33 | Outpatient (CLI) | payer MEDICARE, SELFPAY ==
[2023-04-13 12:13] LABS: Basophils Absolute Auto 0.1 K/mm3 (0.0-0.1); Basophils Percent Auto 1.3 % (0.2-1.2); Eosinophils Absolute Auto 0.4 K/mm3 (0-0.3); Eosinophils Percent Auto 3.6 % (0-4.4); Hematocrit 44.2 % (37.0-47.0); Hemoglobin 13.4 g/dL (12.0-15.0); Immature Granulocyte Percent A 0.9 % (0-0.5); Lymphocytes Absolute Auto 1.56 K/mm3 (0.9-3.2); Lymphocytes Percent Auto 14.6 % (18.3-44.2); Mean Corpuscular HGB Conc 30.3 g/dl (32-36); Mean Corpuscular Hemoglobin 26.3 pg (26-34); Mean Corpuscular Volume 86.7 fl (80-100); Mean Platelet Volume 9.5 fl (7.4-10.4); Monocytes Absolute Auto 0.8 K/mm3 (0.1-0.6); Monocytes Percent Auto 7.7 % (2.6-8.5); Neutrophils Absolute Auto 7.7 K/mm3 (1.3-6.7); Neutrophils Percent Auto 71.9 % (45.5-73.1); Platelet Count Result 400 k/mm3 (150-375); Red Cell Distribution Width 15.8 % (11.5-14.5); White Blood Count 10.7 K/mm3 (4.5-10.0)
[2023-04-13 12:18] LABS: Appearance Urine Clear (Clear); Bilirubin Urine Negative (Negative); Blood Urine Negative (Negative); Color Urine Yellow (Yellow); Glucose Urine UA 3+ mg/dL (Negative); Ketones Urine Negative (Negative); Leukocyte Esterase Ur Negative LEU/UL (Negative); Nitrate Urine Negative (Negative); Protein Urine Negative (Negative); Specific Grav Ur 1.016 (1.001-1.035); Urobilinogen Urine 0.2 mg/dL (<2.0); pH Urine 6.5 (5.0-9.0)
[2023-04-13 12:25] LABS: Alanine Aminotransferase 30 U/L (6-35); Albumin Level 4.2 g/dL (3.5-5.1); Alkaline Phosphatase 97 U/L (38-126); Anion Gap 5 mmol/L (8-16); Aspartate Amino Transferase 33 U/L (14-36); Bilirubin,Total 0.3 mg/dL (0.2-1.3); Blood Urea Nitrogen 15 mg/dL (7-17); Calcium 8.9 mg/dL (8.4-10.2); Carbon Dioxide 28 mmol/L (22-30); Chloride 103 mmol/L (98-107); Estimated Glomerular Filt Rate > 60; Glucose 145 mg/dL (65-110); Potassium 4.1 mmol/L (3.4-5.0); Sodium 136 mmol/L (137-145)
[2023-04-13 12:27] LABS: Add Urine Microscopic? NO
[2023-04-13 14:18] LABS: Hemoglobin A1C 8.6 % (<5.7)
== END 2023-04-13 11:34 | disposition home or self-care (01) ==
PROVIDERS: Nurse Practitioner Family; PCP Family Medicine; Referring Provider Nurse Practitioner Family; Visit Provider Orthopaedic Surgery
DX: R74.8 Abnormal levels of other serum enzymes (principal); I10 Essential (primary) hypertension; E11.42 Type 2 diabetes mellitus with diabetic polyneuropathy; M17.11 Unilateral primary osteoarthritis, right knee
CPT/HCPCS: 36415; 80053; 81003; 83036; 85025

== ENCOUNTER 2023-04-17 10:40 | Outpatient (CLI) | payer MEDICARE, SELFPAY ==
[2023-04-17 12:02] LABS: Sodium Urine Random 79 meq/L
[2023-04-17 12:22] LABS: Anion Gap 5 mmol/L (8-16); Blood Urea Nitrogen 16 mg/dL (7-17); Calcium 9.2 mg/dL (8.4-10.2); Carbon Dioxide 30 mmol/L (22-30); Chloride 102 mmol/L (98-107); Estimated Glomerular Filt Rate > 60; Glucose 135 mg/dL (65-110); Potassium 4.7 mmol/L (3.4-5.0); Sodium 137 mmol/L (137-145)
[2023-04-17 12:27] LABS: Thyroid Stimulating Hormone 0.341 uIU/mL (0.465-4.680)
[2023-04-17 12:40] LABS: Free T4 Free Thyroxine 1.07 ng/mL (0.78-2.19)
== END 2023-04-17 10:41 | disposition home or self-care (01) ==
PROVIDERS: PCP Family Medicine; Visit Provider Physician Assistant Medical
DX: E87.1 Hypo-osmolality and hyponatremia (principal); R42 Dizziness and giddiness; R79.89 Other specified abnormal findings of blood chemistry
CPT/HCPCS: 36415; 80048; 84300; 84439; 84443

== ENCOUNTER 2023-05-02 06:51 | Outpatient (CLI) | payer MEDICARE, SELFPAY ==
--- NOTE | ~2023-05-02 | MR_ITS ---
MRI of the lumbar spine Clinical History: Spondylosis Technique: Axial T2-weighted images, and sagittal T1-weighted, T2-weighted, and and T2 fat-sat images were acquired. Findings: No acute fracture identified. There is posterior fusion from L3 to L4, with bilateral rods and transpedicular screws present. There are laminectomy defects of L3 and L4. There is 5 mm retrolis thesis of L1 over L2. There is 3 mm retrolisthesis of L2 over L3. There is 6 mm anterolisthesis of L3 over L4. No suspicious bone marrow signal reality identified. At L1-L2, there is severe degenerative disc narrowing. There is diffuse disc bulge and moderate to ad vanced facet arthropathy. There is severe bilateral neural foraminal narrowing. No quin[place] central emily l stenosis. At L2-L3, there is moderate degenerative disc narrowing. There is advanced facet arthropathy, with mi nimal disc bulge. There is severe right neural foraminal narrowing. Left neural foramen preserved. No quincy central canal stenosis. At L3-L4, there is severe degenerative disc disease with advanced facet arthropathy. No disc bulge or herniation. No central canal stenosis. There is severe right neural foraminal narrowing. Left neural foramen preserved. At L4-L5, there is moderate degenerative disc narrowing with diffuse disc bulge and moderate facet ar thropathy. No central canal stenosis. There is mild right neural foraminal narrowing. Left neural for amen preserved. At L5-S1, there is moderate degenerative disc narrowing with mild disc bulge and moderate facet arthr opathy. No central canal stenosis. There is mild left neural foraminal narrowing. Right neural forame n preserved. Paravertebral soft tissues are unremarkable, aside from expected postoperative change. Impression: Posterior fusion from L3 to L4, as detailed above. 5 mm retrolisthesis of L1 over L2. 3 mm retrolisthesis of L2 over L3. 6 mm anterolisthesis of L3 over L4. Moderate degenerative spondylosis in the lumbar spine, as detailed above. Reviewed, dictated and finalized at [facility]. Impression: Posterior fusion from L3 to L4, as detailed above. 5 mm retrolisthesis of L1 over L2. 3 mm retrolisthesis of L2 over L3. 6 mm anterolisthesis of L3 over L4. Moderate degenerative spondylosis in the lumbar spine, as detailed above.
== END 2023-05-02 06:52 | disposition home or self-care (01) ==
PROVIDERS: PCP Family Medicine; Visit Provider Family Medicine
DX: M47.16 Other spondylosis with myelopathy, lumbar region (principal); Z98.1 Arthrodesis status
CPT/HCPCS: 72148

== ENCOUNTER 2023-05-11 12:11 | Outpatient (CLI) | payer MEDICARE, SELFPAY ==
[2023-05-11 13:29] LABS: Basophils Absolute Auto 0.1 K/mm3 (0.0-0.1); Basophils Percent Auto 1.4 % (0.2-1.2); Eosinophils Absolute Auto 0.5 K/mm3 (0-0.3); Eosinophils Percent Auto 4.7 % (0-4.4); Hematocrit 43.6 % (37.0-47.0); Hemoglobin 13.4 g/dL (12.0-15.0); Immature Granulocyte Absolute 0.09 K/mm3 (0.00-0.031); Immature Granulocyte Percent A 0.9 % (0-0.5); Lymphocytes Percent Auto 17.2 % (18.3-44.2); Mean Corpuscular HGB Conc 30.7 g/dl (32-36); Mean Corpuscular Volume 87.7 fl (80-100); Mean Platelet Volume 9.5 fl (7.4-10.4); Monocytes Percent Auto 10.4 % (2.6-8.5); Neutrophils Absolute Auto 6.5 K/mm3 (1.3-6.7); Neutrophils Percent Auto 65.4 % (45.5-73.1); Platelet Count Result 377 k/mm3 (150-375); Red Blood Count 4.97 M/mm3 (4.2-5.4); White Blood Count 9.9 K/mm3 (4.5-10.0)
[2023-05-11 13:30] LABS: Alanine Aminotransferase 31 U/L (6-35); Albumin Level 4.3 g/dL (3.5-5.1); Alkaline Phosphatase 103 U/L (38-126); Anion Gap 13 mmol/L (8-16); Aspartate Amino Transferase 30 U/L (14-36); Bilirubin,Total 0.3 mg/dL (0.2-1.3); Blood Urea Nitrogen 21 mg/dL (7-17); CRP < 0.5 mg/dL (<1.0); Calcium 9.1 mg/dL (8.4-10.2); Carbon Dioxide 21 mmol/L (22-30); Chloride 99 mmol/L (98-107); Estimated Glomerular Filt Rate > 60; Glucose 147 mg/dL (65-110); Potassium 4.1 mmol/L (3.4-5.0); Sodium 133 mmol/L (137-145)
[2023-05-11 14:10] LABS: Erythrocyte Sedimentation Rate 9 mm/hr (0-20)
[2023-05-15 15:21] LABS: BCR/abl Prior Result Not Given
[2023-05-15 16:07] LABS: BCR/abl P190 Not Detected; BCR/abl P210 Not Detected
[2023-05-15 16:08] LABS: BCR/abl P190 Chg YES; BCR/abl P210 Chg YES
[2023-05-18 13:44] LABS: CALR Exon 9 Mutation Not Detected (Not Detected); CSF3R Exon 14/17 Mutation Not Detected (Not Detected); JAK2 Exon 12 Mutation Not Detected (Not Detected); JAK2 V617F Mutation Not Detected (Not Detected); MPL Exon 10 Mutation Not Detected (Not Detected); Specimen Source Blood
== END 2023-05-11 12:12 | disposition home or self-care (01) ==
LOC: ANHLAB 12:13
PROVIDERS: PCP Family Medicine; Visit Provider Internal Medicine Hematology & Oncology
DX: D72.829 Elevated white blood cell count, unspecified (principal); D47.3 Essential (hemorrhagic) thrombocythemia
CPT/HCPCS: 36415; 80053; 81206; 81207; 81219; 81270; 81279; 81339; 81479; 85025; 85652; 86140; 88184

== ENCOUNTER 2023-05-16 08:22 | Outpatient (RCR) | payer MEDICARE, SELFPAY ==
--- NOTE | 2023-05-16 11:49 | OPREHPOC ---
Outpatient Therapy Plan of Care This is a Multidisciplinary Plan of Care that may contain components documented by all disciplines (PT, OT, and ST.) PT Problem 1 PT Problem #1 Knowledge Deficit PT Goal 1 Goal independent with HEP Target Visit 8 PT Problem 2 PT Problem #2 Impaired Balance PT Goal 1 Goal able to do tandem stance for at least 20 seconds leading with either leg Target Visit 8 PT Goal 2 Goal able to stand on airex foam and with eyes closed for 30 seconds Target Visit 8 PT Problem 3 PT Problem #3 Impaired Strength PT Goal 1 Goal DURGA LE hips 4+/5 Target Visit 8 PT Goal 2 Goal able to do 30 seconds of saccades and VOR without S/S of dizziness. Target Visit 8 PT Problem 4 PT Problem #4 Impaired Vestibular Syste
--- NOTE | 2023-05-16 11:50 | PTOPEVAL1 ---
Assessment and note entered by Harish Lehman, PT Evaluation Information Assessment Status Evaluation Diagnosis dizziness and giddiness Onset 1 month ago Subjective Information Patient reports feeling both dizziness and unsteadiness when up. She reports multiple falls with the last coming bout 4 months ago. Patient has decreased sensation in DURGA LE reporting from toes up to her knees along with a history of prescription pain medication use. Patient also had recent MRI of low back and R hip showing nerve impingement. Dizziness occurs after quick head motions and she tries to calm it down by just sitting immobile with her eyes closed. When she does feel dizzy it is light headed with and off balance not spinning. Reported Pain Level Pain Score 7: Self Report Assessment PT Clinical Summary Alee is a 67 year old female coming in with a diagnosis of dizziness and giddiness. Patient has weakness in her hip extenders and abductors along with decreased sensation in both legs worse on the L foot than R foot. Pain in the R hip causing antalgic gait. Weakness in her ocular motor function and decreased time in tandem stance and eyes closed balance activities. Physical therapy would like to work with the patient on her strengthening and balance working in single limb, unstable surface, and low light situations to improve balance and proprioception. Plan of Care Interventions Electrical Stimulation,Gait Training,Hot Pack/Cold Pack,Manual Therapy,Neuro Re-education,Patient/ Caregiver Education,Therapeutic Activities, Therapeutic Exercise,Ultrasound Other Interventions cupping, taping, IASTM PT Services Indicated Yes Treatment Frequency and 2x/wk for 8 visits Duration These treatments will address the objective and functional deficits as defined above. The patient will be advanced safely and appropriately in order for the patient to progress towards his/her prior level of function. Additional exercises will be introduced and as well as a comprehensive home exercise program upon discharge, if needed, ?to ensure carryover of functional gains achieved in the clinic. This treatment plan has been reviewed and agreement upon by the patient.
--- NOTE | 2023-05-22 10:58 | PCPTNOTE ---
Pt no showed her visit this morning, called pt to remind her of her next appt day and time.
--- NOTE | 2023-05-29 09:25 | PCPTNOTE ---
Pt NS appt today. Left message to reminded of cx/ns policy, confirmed her next appt with cancelling of remaining appts if she NS again.
--- NOTE | 2023-05-31 07:52 | PCPTNOTE ---
Pt. no showed for appointment again today (05/31/23). Physical therapist is going to call and check in with pt. later today.
--- NOTE | 2023-05-31 08:06 | PCPTNOTE ---
Admitting Provider: Attending Provider: PATY Merino Patient:Alee Melendez Date of :1955 Patient has not returned for any further treatments since 05/16/2023, therefore she will be discharged at this time. Patient?s initial visit was on 05/16/2023 08:30 and she had a total of initial evaluation with 3 consecutive no shows. The goals have been not met. Thank you for referring this patient to [facility]. Please review, sign, date and return this discharge summary OG. I have been updated about the patient's current status and I agree with discharge from the above service at this time. Referring Physician Date
== END 2023-05-31 10:34 | disposition home or self-care (01) ==
LOC: ANHPT 08:22
PROVIDERS: PCP Family Medicine; Visit Provider Physician Assistant Medical
DX: R42 Dizziness and giddiness (principal); R26.89 Other abnormalities of gait and mobility
CPT/HCPCS: 97110; 97161; 99199

== ENCOUNTER 2023-06-03 09:53 | Emergency (ER) | payer MEDICARE, SELFPAY ==
[2023-06-03] VITALS (16 sets, daily range): BP systolic 90–121; BP diastolic 59–83; PULSE 85–102; RESP 12–23; TEMP 36.3–36.6; O2SAT 90–97
--- NOTE | ~2023-06-03 | XR_ITS ---
EXAMINATION: XR chest 2V DATE: 06/03/2023 10:38 INDICATION: Right-sided chest pain TECHNIQUE: Frontal and lateral views of the chest are obtained COMPARISON: 01/05/2023 FINDINGS: There is mild atelectasis of the left lung base. No pleural effusion or pneumothorax. The c ardiomediastinal silhouette is normal. There is moderate thoracic spondylosis. Changes of left should er arthroplasty are noted. There are partially imaged changes of posterior fusion in the lumbar spine . Surgical clips are noted in the abdomen. There are changes of anterior fusion procedure in the lowe r cervical spine. IMPRESSION: 1. No acute cardiopulmonary abnormality. Reviewed, dictated and finalized at location A.
--- NOTE | ~2023-06-03 | CT_ITS ---
EXAMINATION: CTA chest PE protocol DATE: 06/03/2023 12:45 INDICATION: Chest pain TECHNIQUE: Computed tomography angiography (CTA) of the chest was performed with 100 mL Omnipaque-350 intravenous contrast timed to evaluate the pulmonary arteries. Coronal maximum intensity projection 3D-reconstructions were created by the technologist. The dose-length product (DLP) was 686.07 mGy-cm. Automated exposure control and iterative reconstruction technique were employed. COMPARISON: 07/22/2022 FINDINGS: The pulmonary arteries are well-opacified. There is a pulmonary embolus in a subsegmental b ranch of the right lower lobe. There is dependent atelectasis of the lungs. No pleural effusion or pn eumothorax. No pathologically enlarged thoracic lymph nodes are identified. The heart size is normal. Calcified coronary artery atherosclerosis is noted. Changes in the stomach likely related to weight loss surgery. The gallbladder is surgically absent. There is severe thoracic spondylosis. Healing gustavo ateral rib fractures are noted. IMPRESSION: 1. Right lower lobe pulmonary embolus. This finding was discussed with Dr. Manuel Barry MD in the Emergency Department at 1302 hours on 06/03/2023. Reviewed, dictated and finalized at location A. IMPRESSION: 1. Right lower lobe pulmonary embolus. This finding was discussed with Dr. Omi Barry MD in the Emergency Department at 1302 hours on 06/03/2023.
--- NOTE | 2023-06-03 10:00 | ECG_ITS ---
Measurements Intervals [place] Rate: 103 P: 25 MN: 183 QRS: -20 QRSD: 82 T: 39 QT: 338 QTc: 444 Interpretive Statements SINUS TACHYCARDIA POSSIBLE ANTERIOR MYOCARDIAL INFARCTION , PROBABLY OLD [30 ms Q WAVE IN V3/V4, OR R < 0.2 mV IN V4] LOW VOLTAGE NONSPECIFIC T-WAVE ABNORMALITY ABNORMAL ECG COMPARED TO ECG 01/05/2023 10:03:16 SINUS TACHYCARDIA NOW PRESENT Electronically Signed On 06-03-2023 10:07:38 CDT by Shawn Ross M.D.
[2023-06-03 10:19] LABS: Basophils Absolute Auto 0.1 K/mm3 (0.0-0.1); Eosinophils Absolute Auto 0.3 K/mm3 (0-0.3); Hematocrit 42.5 % (37.0-47.0); Hemoglobin 12.9 g/dL (12.0-15.0); Immature Granulocyte Absolute 0.08 K/mm3 (0.00-0.031); Immature Granulocyte Percent A 0.8 % (0-0.5); Lymphocytes Absolute Auto 1.24 K/mm3 (0.9-3.2); Lymphocytes Percent Auto 13.1 % (18.3-44.2); Mean Corpuscular HGB Conc 30.4 g/dl (32-36); Mean Corpuscular Hemoglobin 26.9 pg (26-34); Mean Corpuscular Volume 88.5 fl (80-100); Monocytes Absolute Auto 0.8 K/mm3 (0.1-0.6); Monocytes Percent Auto 8.6 % (2.6-8.5); Neutrophils Percent Auto 73.5 % (45.5-73.1); Platelet Count Result 312 k/mm3 (150-375); Red Cell Distribution Width 17.6 % (11.5-14.5); White Blood Count 9.5 K/mm3 (4.5-10.0)
[2023-06-03] MEDS: ASPIRIN 81 MG CHEWABLE TABLET 324 MG PO (10:33)
[2023-06-03 10:34] LABS: Alanine Aminotransferase 32 U/L (6-35); Albumin Level 3.7 g/dL (3.5-5.1); Alkaline Phosphatase 95 U/L (38-126); Anion Gap 8 mmol/L (8-16); Aspartate Amino Transferase 33 U/L (14-36); Bilirubin,Total 0.5 mg/dL (0.2-1.3); Blood Urea Nitrogen 19 mg/dL (7-17); Calcium 8.7 mg/dL (8.4-10.2); Carbon Dioxide 20 mmol/L (22-30); Chloride 101 mmol/L (98-107); Estimated CRCL calculation 78 ml/min; Estimated Glomerular Filt Rate > 60; Glucose 110 mg/dL (65-110); Lipase 33 U/L (23-300); Potassium 4.2 mmol/L (3.4-5.0); Sodium 129 mmol/L (137-145)
[2023-06-03 10:35] LABS: Prothrombin Time 13.9 Seconds (11.1-14.7)
[2023-06-03 10:36] LABS: Partial Thromboplastin Time 26.6 SECONDS (22.3-36.8)
[2023-06-03 10:44] LABS: Troponin I < 0.012 ng/mL (0.000-0.034)
--- NOTE | 2023-06-03 13:04 | ED.CHESTPAIN ---
HPI - Chest Pain General Chief Complaint: Chest Pain Stated Complaint: chest pain Time Seen by Provider: 06/03/23 10:31 History of Present Illness HPI narrative: This is a 67-year-old female, who presents emergency department complaining of right-sided chest pain for the past 4 days. She describes the pain as sharp, rated 4-5/10, intermittent, aggravated by movement and deep breathing. She denies loss of consciousness or dyspnea. The pain radiates to the right arm and is associated with intermittent right finger paresthesias. Related Data Home Medications Medication Instructions Recorded Confirmed amlodipine 5 mg tablet 5 mg PO QAM 01/29/23 05/17/23 multivitamin w-[id number]-csxudwa 1 tablet PO DAILY 01/29/23 05/17/23 fumarate 18 mg-vitamin K 25 mcg tablet omeprazole 40 mg capsule,delayed 40 mg PO DAILY 01/29/23 05/17/23 release dapagliflozin propanediol 5 mg 5 mg PO DAILY 04/17/23 05/17/23 tablet (Farxiga) Allergies Allergy/AdvReac Type Severity Reaction Status Date / Time adhesive Allergy Intermediate Blister Verified 06/03/23 10:42 benzoin Allergy Intermediate LOCAL Verified 06/03/23 10:42 IRRITATION/ BLISTERS fentanyl Allergy Intermediate Rash Verified 06/03/23 10:42 dulaglutide [From [facility]] AdvReac Intermediate Abdominal Verified 06/03/23 10:42 Pain hydrocodone AdvReac Intermediate Itching Verified 06/03/23 10:42 trazodone AdvReac Palpitation Verified 06/03/23 10:42 s Review of Systems Review of Systems: CONSTITUTIONAL: Denies fever, chills, or sweats. CARDIOVASCULAR: Right-sided chest pain denies palpitations, or edema. RESPIRATORY: Denies cough or dyspnea. GASTROINTESTINAL: Denies abdominal pain, nausea, vomiting, or diarrhea. GENITOURINARY: Denies dysuria or hematuria. SKIN: Denies rash or itching. MUSCULOSKELETAL: Chronic back pain denies joint pain, or myalgia. NEUROLOGIC: Denies headache, numbness, dizziness, or weakness. PSYCHIATRIC: Denies anxiety or depression. [facility] Past Medical History Medical History Abnormal blood cell count Achilles tendinitis of right lower extremity Adenomatous colon polyp Allergies Anxiety and depression Arthritis of carpometacarpal (CMC) joint of left thumb At risk for falling BMI 31.0-31.9,adult Cervical strain, acute Cholelithiasis Chronic pain Cystic mass of pancreas Diabetes type 2, uncontrolled Dysuria Elevated liver enzymes Essential (primary) hypertension Exocrine pancreatic insufficiency Exostosis of right posterior calcaneus Gastroparesis Hx of deep venous thrombosis IBS (irritable bowel syndrome) Impacted cerumen Incontinence of bowel Insomnia Irritable bowel syndrome with diarrhea Left shoulder strain Leg cramping Low back pain Lumbar spondylosis with myelopathy Mixed hyperlipidemia Neuropathy Nocturnal hypoxia COLIN (obstructive sleep apnea) Pain of right heel Restless leg Right hip pain Scalp cyst Screening mammogram, encounter for Small intestinal bacterial overgrowth (SIBO) Small vessel disease Trigger finger of right hand Type 2 diabetes mellitus without complications Surgical History Surgical History Achilles rupture, right (10/09/19) H/O cataract extraction H/O colonoscopy with polypectomy H/O dilation and curettage X7 H/O gastric bypass 2000 H/O hernia repair X5 H/O: hysterectomy BERNARDINO BSO History of back surgery Hx of cholecystectomy S/P rotator cuff repair S/P tonsillectomy and adenoidectomy Total knee replacement status Family History Family History Father Hypertension Malignant neoplasm of prostate Family history of heart disease in male family member before age 55 Esophageal cancer Mother Hypertension Family history of diabetes mellitus in first degree relative Family history of heart disease in
[2023-06-03 13:30] LABS: Troponin I < 0.012 ng/mL (0.000-0.034)
== END 2023-06-03 14:31 | disposition home or self-care (01) ==
PROVIDERS: Emergency Provider Preventive Medicine Aerospace Medicine; PCP Family Medicine
DX: I26.93 Single subsegmental thrombotic pulmonary embolism without acute cor pulmonale (principal); I10 Essential (primary) hypertension; K86.81 Exocrine pancreatic insufficiency; E11.43 Type 2 diabetes mellitus with diabetic autonomic (poly)neuropathy; K31.84 Gastroparesis; E11.40 Type 2 diabetes mellitus with diabetic neuropathy, unspecified; E78.2 Mixed hyperlipidemia; G25.81 Restless legs syndrome; G47.33 Obstructive sleep apnea (adult) (pediatric); G47.34 Idiopathic sleep related nonobstructive alveolar hypoventilation; M18.9 Osteoarthritis of first carpometacarpal joint, unspecified; Z98.49 Cataract extraction status, unspecified eye; Z98.84 Bariatric surgery status; Z96.659 Presence of unspecified artificial knee joint; Z86.010 Personal history of colon polyps; Z87.891 Personal history of nicotine dependence; Z90.710 Acquired absence of both cervix and uterus; Z90.722 Acquired absence of ovaries, bilateral; Z90.79 Acquired absence of other genital organ(s); Z90.49 Acquired absence of other specified parts of digestive tract; Z79.82 Long term (current) use of aspirin; Z79.84 Long term (current) use of oral hypoglycemic drugs; R00.0 Tachycardia, unspecified; R94.31 Abnormal electrocardiogram [ECG] [EKG]
CPT/HCPCS: 36415; 71046; 71275; 80053; 83690; 84484; 85025; 85610; 85730; 93005; 99284; A9270; Q9967

== ENCOUNTER 2023-06-04 14:27 | Emergency (ER) | payer MEDICARE, SELFPAY ==
[2023-06-04] VITALS (14 sets, daily range): BP systolic 106–121; BP diastolic 68–71; PULSE 85–116; RESP 12–21; TEMP 36; O2SAT 88–97
--- NOTE | ~2023-06-04 | CT_ITS ---
EXAMINATION: CT abdomen pelvis w con DATE: 06/04/2023 21:16 INDICATION: Abdominal pain and bloating TECHNIQUE: Computed tomography (CT) of the abdomen and pelvis was performed with 100 mL Omnipaque-350 intravenous contrast. Automated exposure control and iterative reconstruction technique were employe d. The dose-length product was 1289.75 mGy-cm. COMPARISON: None. FINDINGS: Lower thorax: Bibasilar scar/atelectasis. Aortic valve, mitral valve, and coronary artery calcificati on. Liver: Normal. Biliary/Gallbladder: Gallbladder is absent. Mild intra and extrahepatic bile duct dilation, likely se condary to cholecystectomy. Pancreas: Fatty atrophy. Spleen: Normal. Adrenals:No mass. Kidneys: No obstructing calcification. Bilateral subcentimeter hypodensities, too small to characteri ze but most likely represent cysts. No hydronephrosis or suspicious mass. GI tract: Small hiatal hernia. Prior gastric surgery. Small bowel anastomosis, with slightly decrease d degree of anastomotic dilation. Mild distal esophageal and gastric wall edema as can be seen with e sophagitis/gastritis. No small or large bowel dilation. Normal appendix. Moderate diverticulosis. Inf lammatory stranding surrounding a single diverticulum projecting off the descending colon in the left lateral abdomen. Mesentery/Peritoneum: No ascites, mass, or free air. Retroperitoneum: No mass. Atherosclerotic abdominal aortic and/or arterial calcifications. Pelvis: Pelvic organs are within normal limits. Soft Tissues: Anterior midline abdominal incision with suture subcutaneous chely. Bones: No acute osseous finding. Uncomplicated appearing L3-4 posterior fusion hardware. IMPRESSION: Esophagitis/gastritis. Mild uncomplicated diverticulitis in the left lateral abdomen. Reviewed, dictated and finalized at location K.
--- NOTE | 2023-06-04 14:32 | ECG_ITS ---
Measurements Intervals [place] Rate: 95 P: 18 SC: 179 QRS: -22 QRSD: 91 T: 13 QT: 343 QTc: 431 Interpretive Statements SINUS RHYTHM LOW QRS VOLTAGE IN PRECORDIAL LEADS [QRS DEFLECTION < 1.0 mV IN CHEST LEADS] POSSIBLE ANTERIOR MYOCARDIAL INFARCTION , PROBABLY OLD ABNORMAL ECG COMPARED TO ECG 06/03/2023 10:04:39 NO SIGNIFICANT CHANGE Electronically Signed On 06-04-2023 17:16:59 CDT by Mika Izaguirre M.D.
[2023-06-04 15:21] LABS: Basophils Absolute Auto 0.1 K/mm3 (0.0-0.1); Basophils Percent Auto 1.3 % (0.2-1.2); Eosinophils Absolute Auto 0.4 K/mm3 (0-0.3); Eosinophils Percent Auto 5.8 % (0-4.4); Hematocrit 41.3 % (37.0-47.0); Hemoglobin 12.7 g/dL (12.0-15.0); Immature Granulocyte Absolute 0.04 K/mm3 (0.00-0.031); Immature Granulocyte Percent A 0.5 % (0-0.5); Lymphocytes Absolute Auto 1.25 K/mm3 (0.9-3.2); Lymphocytes Percent Auto 16.5 % (18.3-44.2); Mean Corpuscular HGB Conc 30.8 g/dl (32-36); Mean Corpuscular Hemoglobin 27.3 pg (26-34); Mean Corpuscular Volume 88.8 fl (80-100); Mean Platelet Volume 9.1 fl (7.4-10.4); Monocytes Absolute Auto 0.7 K/mm3 (0.1-0.6); Monocytes Percent Auto 9.7 % (2.6-8.5); Neutrophils Percent Auto 66.2 % (45.5-73.1); Platelet Count Result 310 k/mm3 (150-375); Red Blood Count 4.65 M/mm3 (4.2-5.4); Red Cell Distribution Width 17.7 % (11.5-14.5); White Blood Count 7.6 K/mm3 (4.5-10.0)
[2023-06-04 15:30] LABS: Prothrombin Time 13.3 Seconds (11.1-14.7)
[2023-06-04 15:31] LABS: Partial Thromboplastin Time 26.8 SECONDS (22.3-36.8)
[2023-06-04 15:33] LABS: Alanine Aminotransferase 29 U/L (6-35); Albumin Level 3.6 g/dL (3.5-5.1); Alkaline Phosphatase 107 U/L (38-126); Anion Gap 6 mmol/L (8-16); Aspartate Amino Transferase 27 U/L (14-36); Bilirubin,Total 0.3 mg/dL (0.2-1.3); Blood Urea Nitrogen 17 mg/dL (7-17); Calcium 8.7 mg/dL (8.4-10.2); Carbon Dioxide 24 mmol/L (22-30); Chloride 106 mmol/L (98-107); Estimated CRCL calculation 80 ml/min; Estimated Glomerular Filt Rate > 60; Glucose 164 mg/dL (65-110); Potassium 4.3 mmol/L (3.4-5.0); Sodium 136 mmol/L (137-145)
[2023-06-04] MEDS: FAMOTIDINE 20 MG/2 ML VIAL IV PUSH (21:01)
--- NOTE | 2023-06-04 21:14 | ED.GENADULT ---
HPI - General Adult General Chief complaint: Weakness Stated complaint: weak/back pain/diarrhea/pe Time Seen by Provider: 06/04/23 18:59 History of Present Illness HPI narrative: This is a 67-year-old female Presenting to ED with multiple complaints. patient's 1st complaint is abdominal bloating. Patient states that her abdomen is bloated and painful. She also notes that she has had dysuria for the last 2 days as well as back pain. She denies fever chills nausea vomiting. Patient is still having bowel movements and is actually complaining of anal leakage x2 years. patient was seen here yesterday for pulmonary embolism. She was discharged with a prescription for anticoagulation but cannot fill it because she did not have any money. Will get paid in 2 days on Sunday. Patient is also complaining of fatigue, total body pain, headache, and feeling like her body is falling apart Related Data Home Medications Medication Instructions Recorded Confirmed amlodipine 5 mg tablet 5 mg PO QAM 01/29/23 05/17/23 multivitamin e-[id number]-[id number] 1 tablet PO DAILY 01/29/23 05/17/23 fumarate 18 mg-vitamin K 25 mcg tablet omeprazole 40 mg capsule,delayed 40 mg PO DAILY 01/29/23 05/17/23 release dapagliflozin propanediol 5 mg 5 mg PO DAILY 04/17/23 05/17/23 tablet (Farxiga) Allergies Allergy/AdvReac Type Severity Reaction Status Date / Time adhesive Allergy Intermediate Blister Verified 06/03/23 10:42 benzoin Allergy Intermediate LOCAL Verified 06/03/23 10:42 IRRITATION/ BLISTERS fentanyl Allergy Intermediate Rash Verified 06/03/23 10:42 dulaglutide [From Trulicity] AdvReac Intermediate Abdominal Verified 06/03/23 10:42 Pain hydrocodone AdvReac Intermediate Itching Verified 06/03/23 10:42 trazodone AdvReac Palpitation Verified 06/03/23 10:42 s PMFSH Past Medical History Medical History Abnormal blood cell count Achilles tendinitis of right lower extremity Adenomatous colon polyp Allergies Anxiety and depression Arthritis of carpometacarpal (CMC) joint of left thumb At risk for falling BMI 31.0-31.9,adult Cervical strain, acute Cholelithiasis Chronic pain Cystic mass of pancreas Diabetes type 2, uncontrolled Dysuria Elevated liver enzymes Essential (primary) hypertension Exocrine pancreatic insufficiency Exostosis of right posterior calcaneus Gastroparesis Hx of deep venous thrombosis IBS (irritable bowel syndrome) Impacted cerumen Incontinence of bowel Insomnia Irritable bowel syndrome with diarrhea Left shoulder strain Leg cramping Low back pain Lumbar spondylosis with myelopathy Mixed hyperlipidemia Neuropathy Nocturnal hypoxia COLIN (obstructive sleep apnea) Pain of right heel Restless leg Right hip pain Scalp cyst Screening mammogram, encounter for Small intestinal bacterial overgrowth (SIBO) Small vessel disease Trigger finger of right hand Type 2 diabetes mellitus without complications Surgical History Surgical History Achilles rupture, right (10/09/19) H/O cataract extraction H/O colonoscopy with polypectomy H/O dilation and curettage X7 H/O gastric bypass 1999 H/O hernia repair X5 H/O: hysterectomy BERNARDINO BSO History of back surgery Hx of cholecystectomy S/P rotator cuff repair S/P tonsillectomy and adenoidectomy Total knee replacement status Family History Family History Father Hypertension Malignant neoplasm of prostate Family history of heart disease in male family member before age 55 Esophageal cancer Mother Hypertension Family history of diabetes mellitus in first degree relative Family history of heart disease in male family member before age 55 Diabetes mellitus Heart disease Sibling Pacemaker Diabetes mellitus Diverticulitis Hyperlipidemia Si
[2023-06-04 21:15] LABS: Appearance Urine Clear (Clear); Bacteria Urine 4+ /hpf; Bilirubin Urine Negative (Negative); Blood Urine Negative (Negative); Color Urine Yellow (Yellow); Glucose Urine UA 3+ mg/dL (Negative); Ketones Urine Negative (Negative); Leukocyte Esterase Ur Trace LEU/UL (Negative); Nitrate Urine Negative (Negative); Non Pathogenic Casts 0-2; Protein Urine Negative (Negative); RBC Urine 0-2 /hpf (0-2); Specific Grav Ur 1.014 (1.001-1.035); Squamous Epithelial Cell Urine None seen /hpf (Few); Urobilinogen Urine 0.2 mg/dL (<2.0); pH Urine 5.5 (5.0-9.0)
[2023-06-04 21:24] LABS: Add Urine Microscopic? YES
[2023-06-04] MEDS: ENOXAPARIN 100 MG/ML SYRINGE 85 MG SUB-Q (22:28)
[2023-06-04] MEDS: ONDANSETRON INJ 4 MG/2 ML VIAL IV PUSH (22:28)
== END 2023-06-04 23:51 | disposition home or self-care (01) ==
PROVIDERS: Emergency Medicine; Emergency Provider Emergency Medicine; PCP Family Medicine
DX: K29.70 Gastritis, unspecified, without bleeding (principal); N39.0 Urinary tract infection, site not specified; I26.99 Other pulmonary embolism without acute cor pulmonale; K57.92 Diverticulitis of intestine, part unspecified, without perforation or abscess without bleeding; I10 Essential (primary) hypertension; K86.81 Exocrine pancreatic insufficiency; E11.43 Type 2 diabetes mellitus with diabetic autonomic (poly)neuropathy; K31.84 Gastroparesis; G25.81 Restless legs syndrome; E78.5 Hyperlipidemia, unspecified; G47.33 Obstructive sleep apnea (adult) (pediatric); G47.34 Idiopathic sleep related nonobstructive alveolar hypoventilation; M18.9 Osteoarthritis of first carpometacarpal joint, unspecified; Z98.49 Cataract extraction status, unspecified eye; Z98.84 Bariatric surgery status; Z96.659 Presence of unspecified artificial knee joint; Z86.010 Personal history of colon polyps; Z87.891 Personal history of nicotine dependence; Z90.710 Acquired absence of both cervix and uterus; Z90.722 Acquired absence of ovaries, bilateral; Z90.79 Acquired absence of other genital organ(s); Z79.82 Long term (current) use of aspirin; Z79.84 Long term (current) use of oral hypoglycemic drugs; R94.31 Abnormal electrocardiogram [ECG] [EKG]
CPT/HCPCS: 36415; 74177; 80053; 81001; 85025; 85610; 85730; 87077; 87086; 87186; 93005; 96372; 96374; 96375; 99284; J1650; J2405; Q9967

== ENCOUNTER 2023-08-01 09:37 | Outpatient (CLI) | payer MEDICARE, SELFPAY ==
[2023-08-01 16:44] LABS: Appearance Urine Clear (Clear); Bacteria Urine 1+ /hpf; Bilirubin Urine Negative (Negative); Blood Urine Negative (Negative); Color Urine Yellow (Yellow); Glucose Urine UA 3+ mg/dL (Negative); Ketones Urine Negative (Negative); Leukocyte Esterase Ur 2+ LEU/UL (Negative); Nitrate Urine Negative (Negative); Non Pathogenic Casts 0-2; Protein Urine Negative (Negative); RBC Urine 0-2 /hpf (0-2); Specific Grav Ur 1.029 (1.001-1.035); Squamous Epithelial Cell Urine Occasional /hpf (Few); Urobilinogen Urine 0.2 mg/dL (<2.0)
[2023-08-01 17:00] LABS: Add Urine Microscopic? YES
[2023-08-01 17:35] LABS: Free T4 Free Thyroxine 1.05 ng/mL (0.78-2.19)
[2023-08-01 17:45] LABS: Creatinine Urine 42.1 mg/dL
[2023-08-01 17:48] LABS: HDL Direct 51 mg/dL
[2023-08-01 17:49] LABS: MALB Creatinine Ratio 14.7 mg/g (0-30); Microalbumin Urine Random 6.2 mg/L (0-16.7)
[2023-08-01 17:59] LABS: LDL Cholesterol Direct 43 mg/dL
[2023-08-01 18:20] LABS: Thyroid Stimulating Hormone 0.514 uIU/mL (0.465-4.680)
== END 2023-08-01 09:38 | disposition home or self-care (01) ==
LOC: ANHWCLAB 09:38
PROVIDERS: PCP Family Medicine; Visit Provider Internal Medicine Endocrinology, Diabetes & Metabolism
DX: E05.90 Thyrotoxicosis, unspecified without thyrotoxic crisis or storm (principal); E11.65 Type 2 diabetes mellitus with hyperglycemia
CPT/HCPCS: 36415; 81001; 82043; 82607; 83718; 83721; 84439; 84443; 87086; 87088

== ENCOUNTER 2023-08-20 10:52 | Outpatient (CLI) | payer MEDICARE, SELFPAY ==
[2023-08-20 11:27] LABS: Basophils Absolute Auto 0.1 K/mm3 (0.0-0.1); Eosinophils Absolute Auto 0.3 K/mm3 (0-0.3); Eosinophils Percent Auto 3.2 % (0-4.4); Hematocrit 46.1 % (37.0-47.0); Hemoglobin 14.1 g/dL (12.0-15.0); Immature Granulocyte Absolute 0.11 K/mm3 (0.00-0.031); Immature Granulocyte Percent A 1.1 % (0-0.5); Lymphocytes Absolute Auto 1.49 K/mm3 (0.9-3.2); Lymphocytes Percent Auto 14.2 % (18.3-44.2); Mean Corpuscular HGB Conc 30.6 g/dl (32-36); Mean Corpuscular Volume 91.5 fl (80-100); Monocytes Absolute Auto 0.7 K/mm3 (0.1-0.6); Monocytes Percent Auto 6.4 % (2.6-8.5); Neutrophils Absolute Auto 7.8 K/mm3 (1.3-6.7); Neutrophils Percent Auto 74.1 % (45.5-73.1); Platelet Count Result 394 k/mm3 (150-375); Red Blood Count 5.04 M/mm3 (4.2-5.4); Red Cell Distribution Width 15.2 % (11.5-14.5); White Blood Count 10.5 K/mm3 (4.5-10.0)
--- NOTE | 2023-08-20 11:28 | ECG_ITS ---
Measurements Intervals [place] Rate: 101 P: 0 MS: 160 QRS: -25 QRSD: 85 T: 17 QT: 335 QTc: 436 Interpretive Statements SINUS TACHYCARDIA POSSIBLE ANTERIOR MYOCARDIAL INFARCTION , PROBABLY OLD [30 ms Q WAVE IN V3/V4, OR R < 0.2 mV IN V4] ABNORMAL ECG COMPARED TO ECG 06/04/2023 15:01:53 SINUS TACHYCARDIA NOW PRESENT Electronically Signed On 08-20-2023 12:13:53 CDT by Shawn Ross M.D.
[2023-08-20 11:36] LABS: INR 1.8; Prothrombin Time 21.8 Seconds (11.1-14.7)
[2023-08-20 11:45] LABS: Anion Gap 6 mmol/L (8-16); Blood Urea Nitrogen 20 mg/dL (7-17); Calcium 9.8 mg/dL (8.4-10.2); Carbon Dioxide 31 mmol/L (22-30); Chloride 100 mmol/L (98-107); Estimated Glomerular Filt Rate > 60; Glucose 101 mg/dL (65-110); Potassium 4.5 mmol/L (3.4-5.0); Sodium 137 mmol/L (137-145)
[2023-08-20 12:02] LABS: Iron 41 ug/dL (37-170)
[2023-08-20 12:11] LABS: Percent Iron Saturation 11 % (20-50)
[2023-08-20 12:58] LABS: Vitamin D 25 Hydroxy 46.3 ng/mL
== END 2023-08-20 10:53 | disposition home or self-care (01) ==
PROVIDERS: PCP Family Medicine; Referring Provider Orthopaedic Surgery; Visit Provider Family Medicine
DX: M17.11 Unilateral primary osteoarthritis, right knee (principal); D50.9 Iron deficiency anemia, unspecified; I10 Essential (primary) hypertension; E55.9 Vitamin D deficiency, unspecified; E53.8 Deficiency of other specified B group vitamins; I26.99 Other pulmonary embolism without acute cor pulmonale
CPT/HCPCS: 36415; 80048; 82306; 82607; 83540; 83550; 85025; 85610; 93005

== ENCOUNTER 2023-10-18 11:13 | Outpatient (CLI) | payer MEDICARE, SELFPAY ==
[2023-10-18 11:42] LABS: INR 1.7; Prothrombin Time 21.4 Seconds (11.1-14.7)
== END 2023-10-18 11:14 | disposition home or self-care (01) ==
LOC: ANHLAB 11:14
PROVIDERS: PCP Family Medicine; Visit Provider Nurse Practitioner Family
DX: I26.99 Other pulmonary embolism without acute cor pulmonale (principal)
CPT/HCPCS: 36415; 85610

== ENCOUNTER 2023-11-30 13:27 | Outpatient (CLI) | payer MEDICARE, SELFPAY ==
--- NOTE | ~2023-11-30 | US_ITS ---
EXAMINATION: US venous doppler [facility] DATE: 11/30/2023 14:12 INDICATION: Other skin changes TECHNIQUE: [place] scale images without and with compression and Doppler images of the left lower extrem ity veins were obtained. COMPARISON: 03/20/2023 FINDINGS: The left common femoral vein, profunda femoral vein, femoral vein, popliteal vein, peroneal trunk, posterior tibial veins, and greater saphenous vein are patent. IMPRESSION: 1. Patent left lower extremity veins. No evidence of deep venous thrombosis. Reviewed, dictated and finalized at location B. SUBMARINE WEAPONS OFFICER
[2023-11-30 15:00] LABS: Anion Gap 5 mmol/L (8-16); Blood Urea Nitrogen 17 mg/dL (7-17); Calcium 9.5 mg/dL (8.4-10.2); Carbon Dioxide 30 mmol/L (22-30); Chloride 102 mmol/L (98-107); Estimated Glomerular Filt Rate > 60; Glucose 115 mg/dL (65-110); Potassium 4.1 mmol/L (3.4-5.0); Sodium 137 mmol/L (137-145)
[2023-11-30 15:01] LABS: INR 1.1; Prothrombin Time 14.3 Seconds (11.1-14.7)
[2023-11-30 15:07] LABS: Iron 37 ug/dL (37-170)
[2023-11-30 15:11] LABS: Basophils Absolute Auto 0.1 K/mm3 (0.0-0.1); Basophils Percent Auto 1.4 % (0.2-1.2); Eosinophils Absolute Auto 0.4 K/mm3 (0-0.3); Eosinophils Percent Auto 4.6 % (0-4.4); Hematocrit 41.5 % (37.0-47.0); Hemoglobin 12.3 g/dL (12.0-15.0); Immature Granulocyte Absolute 0.05 K/mm3 (0.00-0.031); Immature Granulocyte Percent A 0.6 % (0-0.5); Lymphocytes Absolute Auto 1.58 K/mm3 (0.9-3.2); Lymphocytes Percent Auto 18.5 % (18.3-44.2); Mean Corpuscular HGB Conc 29.6 g/dl (32-36); Mean Corpuscular Hemoglobin 27.4 pg (26-34); Mean Corpuscular Volume 92.4 fl (80-100); Mean Platelet Volume 9.7 fl (7.4-10.4); Monocytes Absolute Auto 0.8 K/mm3 (0.1-0.6); Monocytes Percent Auto 9.7 % (2.6-8.5); Neutrophils Absolute Auto 5.6 K/mm3 (1.3-6.7); Neutrophils Percent Auto 65.2 % (45.5-73.1); Platelet Count Result 390 k/mm3 (150-375); Red Blood Count 4.49 M/mm3 (4.2-5.4); Red Cell Distribution Width 15.4 % (11.5-14.5); White Blood Count 8.6 K/mm3 (4.5-10.0)
[2023-11-30 15:17] LABS: Percent Iron Saturation 11 % (20-50)
[2023-11-30 15:29] LABS: Thyroid Stimulating Hormone 0.652 uIU/mL (0.465-4.680)
[2023-11-30 15:37] LABS: Vitamin D 25 Hydroxy 40.8 ng/mL
[2023-11-30 16:56] LABS: Platelet Estimate Increased (Adequate)
[2023-11-30 16:57] LABS: Anisocytosis 2+ (NORMAL); Hypochromasia 1+ (NORMAL); Schistocytes None Seen (NORMAL)
== END 2023-11-30 13:28 | disposition home or self-care (01) ==
PROVIDERS: PCP Family Medicine; Visit Provider Family Medicine
DX: R23.8 Other skin changes (principal); M79.89 Other specified soft tissue disorders; M25.562 Pain in left knee; I10 Essential (primary) hypertension; D50.9 Iron deficiency anemia, unspecified; E05.90 Thyrotoxicosis, unspecified without thyrotoxic crisis or storm; I26.99 Other pulmonary embolism without acute cor pulmonale; R74.8 Abnormal levels of other serum enzymes; E55.9 Vitamin D deficiency, unspecified
CPT/HCPCS: 36415; 80048; 82306; 82607; 82728; 83540; 83550; 84439; 84443; 85025; 85610; 93971

== ENCOUNTER 2024-05-12 06:40 | Outpatient (CLI) | payer MEDICARE, SELFPAY ==
[2024-05-12 07:43] LABS: Basophils Absolute Auto 0.2 K/mm3 (0.0-0.1); Basophils Percent Auto 2.5 % (0.2-1.2); Eosinophils Absolute Auto 0.4 K/mm3 (0-0.3); Eosinophils Percent Auto 4.3 % (0-4.4); Hematocrit 45.1 % (37.0-47.0); Hemoglobin 13.5 g/dL (12.0-15.0); Immature Granulocyte Absolute 0.42 K/mm3 (0.00-0.031); Immature Granulocyte Percent A 4.3 % (0-0.5); Lymphocytes Absolute Auto 1.59 K/mm3 (0.9-3.2); Lymphocytes Percent Auto 16.4 % (18.3-44.2); Mean Corpuscular HGB Conc 29.9 g/dl (32-36); Mean Corpuscular Hemoglobin 26.1 pg (26-34); Mean Corpuscular Volume 87.2 fl (80-100); Mean Platelet Volume 9.7 fl (7.4-10.4); Monocytes Absolute Auto 0.8 K/mm3 (0.1-0.6); Monocytes Percent Auto 8.7 % (2.6-8.5); Neutrophils Absolute Auto 6.2 K/mm3 (1.3-6.7); Neutrophils Percent Auto 63.8 % (45.5-73.1); Platelet Count Result 479 k/mm3 (150-375); Red Blood Count 5.17 M/mm3 (4.2-5.4); White Blood Count 9.7 K/mm3 (4.5-10.0)
[2024-05-12 08:00] LABS: Iron 44 ug/dL (37-170)
[2024-05-12 08:03] LABS: Alanine Aminotransferase 32 U/L (6-35); Albumin Level 4.5 g/dL (3.5-5.1); Alkaline Phosphatase 111 U/L (38-126); Anion Gap 12 mmol/L (4-12); Aspartate Amino Transferase 36 U/L (14-36); Bilirubin,Total 0.3 mg/dL (0.2-1.3); Blood Urea Nitrogen 14 mg/dL (7-17); Calcium 9.7 mg/dL (8.4-10.2); Carbon Dioxide 26 mmol/L (22-30); Chloride 98 mmol/L (98-107); Cholesterol 121 mg/dL (0-200); Estimated Glomerular Filt Rate > 60; Glucose 84 mg/dL (65-110); HDL Direct 52 mg/dL; Potassium 4.7 mmol/L (3.4-5.0); Sodium 136 mmol/L (137-145); Triglycerides 123 mg/dL (<150)
[2024-05-12 08:10] LABS: Percent Iron Saturation 10 % (20-50)
[2024-05-12 08:14] LABS: LDL Cholesterol Direct 54 mg/dL
[2024-05-12 08:23] LABS: Free T4 Free Thyroxine 0.98 ng/mL (0.78-2.19)
[2024-05-12 09:34] LABS: Hypochromasia 1+; Platelet Estimate Adequate (Adequate); Schistocytes None Seen
[2024-05-12 11:19] LABS: Vitamin D 25 Hydroxy 47.9 ng/mL
== END 2024-05-12 06:41 | disposition home or self-care (01) ==
PROVIDERS: PCP Family Medicine; Visit Provider Family Medicine
DX: E03.9 Hypothyroidism, unspecified (principal); R74.8 Abnormal levels of other serum enzymes; E53.8 Deficiency of other specified B group vitamins; E55.9 Vitamin D deficiency, unspecified; D50.9 Iron deficiency anemia, unspecified; I10 Essential (primary) hypertension; E11.65 Type 2 diabetes mellitus with hyperglycemia; Z13.220 Encounter for screening for lipoid disorders
CPT/HCPCS: 36415; 80048; 80061; 80076; 82306; 82607; 82728; 83540; 83550; 84439; 84443; 85025

== ENCOUNTER 2024-10-07 12:34 | Outpatient (CLI) | payer MEDICARE, SELFPAY ==
--- NOTE | ~2024-10-07 | MR_ITS ---
MRI of the lumbar spine Clinical History: Spondylosis Technique: Axial T2-weighted images, and sagittal T1-weighted, T2-weighted, and STIR images were acqu ired. COMPARISON: 05/02/2023 Findings: Posterior fusion from L3 to L4 is stable from prior exam, with bilateral rods and transpedi cular screws. Laminectomy defect at L3 and L4 is unchanged. 6 mm anterolisthesis of L3 over L4 simila r to prior exam. 6 mm retrolisthesis of L1 over L2 is similar to prior exam. No suspicious bone marro w signal abnormality seen. At L1-L2, there is severe degenerative disc narrowing. There is diffuse disc bulge and severe facet a rthropathy. There is mild central canal stenosis/thecal sac compression. There is severe bilateral ne ural foraminal narrowing, left worse than right. At L2-L3, there is advanced degenerative disc narrowing. There is diffuse disc bulge and severe facet arthropathy. There is severe right neural foraminal narrowing, and moderate left neural foraminal na rrowing. There is moderate central canal stenosis/thecal sac compression. L3-L4, there is severe degenerative disc narrowing. No spinal canal stenosis. There is severe right n eural foraminal narrowing, and moderate left neural foraminal narrowing. At L4-L5, there is advanced degenerative disc narrowing. There is diffuse disc bulge with moderate to advanced facet arthropathy. There is posterior decompression without canal stenosis. There has moder ate bilateral neural foraminal narrowing. At L5-S1, there is degenerative disc narrowing with diffuse disc bulge and advanced facet arthropathy . No [place] central canal stenosis. There is mild to moderate left neural foraminal narrowing. Right n eural foramen preserved. Paravertebral soft tissues are unremarkable. Impression: Posterior fusion and laminectomies at the L3-L4 levels, as above. 6 mm anterolisthesis of L3 over L4. 6 mm retrolisthesis of L1 over L2. Advanced degenerative spondylosis, as above. Reviewed, dictated and finalized at [facility]. IFIED PROSTHETIST VICE PRESIDENT Impression: Posterior fusion and laminectomies at the L3-L4 levels, as above. 6 mm anterolisthesis of L3 over L4. 6 mm retrolisthesis of L1 over L2. Advanced degenerative spondylosis, as above.
--- NOTE | ~2024-10-07 | MR_ITS ---
EXAMINATION: MR hip LT wo con DATE: 10/07/2024 14:04 INDICATION: Left hip pain TECHNIQUE: Magnetic resonance imaging (MRI) of the left hip was performed without intravenous contra st. Sequences included full-field axial PD-weighted FS FSE and T1-weighted FSE, coronal of the pelvis with PD-weighted FS FSE, T2-weighted FSE and T1-weighted FSE, small field of view of the left hip w ith axial PD-weighted FS FSE, sagittal PD-weighted FS FSE, coronal PD-weighted FS FSE and coronal T2 weighted FSE. Additional radial T1-weighted FGR oriented orthogonal to the acetabular rim were obtai bethany for evaluation of the labrum. COMPARISON: CT dated 06/04/2023 FINDINGS: Antegrade intramedullary adriana with femoral neck screw and distal interlocking screw fixation of an int ertrochanteric fracture the proximal left femur. Associated surrounding magnetic field artifact limit s evaluation of the immediately surrounding bone and soft tissue particularly on the fat-saturated im ages. There is persistent mild distraction of the lesser trochanteric fragment which is not included within the fixation. There is subarticular edema-like signal change at the superior and anterosuperio r aspect of the right femoral head with suggestion of some early remodeling of the articular cortex s uggesting severe osteoarthritis. There is an associated small right hip joint effusion. No left hip j oint effusion. Where not obscured the remaining bone marrow signal appears otherwise normal throughou t with no acute fracture or pathologic marrow replacing process. There is mild to moderate osteoarthr itis left hip. There is degenerative tearing of the bilateral acetabular marilee. There are chronic partial tears at the greater trochanteric insertions of the bilateral gluteus mediu s medius tendons with proximal retraction of the myotendinous junctions and with secondary fatty atro phy of the muscle bellies, moderate to severe on the right and mild on the left.There is mild right i schial bursitis. The bilateral proximal hamstring tendons remain normal. The bilateral iliopsoas and rectus femoris tendons are normal. There are diverticula along the sigmoid colon without adjacent inf lammatory stranding to suggest diverticulitis. The uterus is not identified and has likely been surgi festus resected. There are postoperative changes along the anterior abdominal wall. No pathologically enlarged pelvic/inguinal lymphadenopathy. IMPRESSION: 1. Internal fixation for an old likely intratrochanteric fracture of the proximal femur with residual mild distraction of the unfixed lesser trochanteric fragment. The associated magnetic field artifact limits evaluation of the immediately adjacent bone and soft tissues. If there is concern for nonunio n of the internally fixed main proximal and distal fragments which is not suspected would recommend C T for further evaluation. 2. Severe right and moderate to severe left hip osteoarthritis with small right hip joint effusion an d with degenerative tearing of the bilateral acetabular labrum. 3. Chronic partial tears of the distal gluteus medius tendons more severe on the right where there is severe fatty muscular atrophy with only mild fatty atrophy on the left. 4. Mild right ischial bursitis. Reviewed, dictated and finalized at location A. COMMUNICATIONS TECHNICIAN IMPRESSION: 1. Internal fixation for an old likely intratrochanteric fracture of the proxim al femur with residual mild distraction of the unfixed lesser trochanteric frag ment. The associated magnetic field artifact limits evaluation of the immediate ly adjacent bone and soft tissues. If there is concern for nonunion of the inte rnally fixed main proximal and distal fragments which is not suspected would re commend CT for further evaluation. 2. Severe right and moderate to severe left hip osteoarthritis with small right hip joint effusion and with degenerative tearing of the bilateral acetabular l abrum. 3. Chronic partial tears of the distal gluteus medius tendons more severe on th e right where there is severe fatty muscular atrophy with only mild fatty atrop hy on the left. 4. Mild right ischial bursitis.
[2024-10-07 15:29] LABS: Basophils Absolute Auto 0.1 K/mm3 (0.0-0.1); Basophils Percent Auto 0.9 % (0.2-1.2); Eosinophils Absolute Auto 0.4 K/mm3 (0-0.3); Eosinophils Percent Auto 2.8 % (0-4.4); Hematocrit 43.9 % (37.0-47.0); Hemoglobin 13.5 g/dL (12.0-15.0); Immature Granulocyte Absolute 0.06 K/mm3 (0.00-0.031); Immature Granulocyte Percent A 0.5 % (0-0.5); Lymphocytes Percent Auto 12.5 % (18.3-44.2); Mean Corpuscular HGB Conc 30.8 g/dl (32-36); Mean Corpuscular Hemoglobin 26.6 pg (26-34); Mean Corpuscular Volume 86.6 fl (80-100); Mean Platelet Volume 9.4 fl (7.4-10.4); Monocytes Absolute Auto 0.9 K/mm3 (0.1-0.6); Neutrophils Absolute Auto 9.8 K/mm3 (1.3-6.7); Neutrophils Percent Auto 76.3 % (45.5-73.1); Platelet Count Result 466 k/mm3 (150-375); Red Blood Count 5.07 M/mm3 (4.2-5.4); Red Cell Distribution Width 17.6 % (11.5-14.5); White Blood Count 12.8 K/mm3 (4.5-10.0)
[2024-10-07 15:41] LABS: Alanine Aminotransferase 19 U/L (6-35); Albumin Level 4.4 g/dL (3.5-5.1); Alkaline Phosphatase 101 U/L (38-126); Anion Gap 5 mmol/L (4-12); Aspartate Amino Transferase 27 U/L (14-36); Bilirubin,Total 0.3 mg/dL (0.2-1.3); Blood Urea Nitrogen 10 mg/dL (7-17); Calcium 9.4 mg/dL (8.4-10.2); Carbon Dioxide 28 mmol/L (22-30); Chloride 104 mmol/L (98-107); Estimated Glomerular Filt Rate > 60; Glucose 110 mg/dL (65-110); Potassium 4.8 mmol/L (3.4-5.0); Sodium 137 mmol/L (137-145)
[2024-10-07 15:54] LABS: Iron 35 ug/dL (37-170)
[2024-10-07 16:05] LABS: Percent Iron Saturation 9 % (20-50)
[2024-10-07 16:10] LABS: Thyroid Stimulating Hormone 0.259 uIU/mL (0.465-4.680)
[2024-10-07 16:14] LABS: Free T4 Free Thyroxine 0.96 ng/dL (0.78-2.19)
[2024-10-07 16:32] LABS: Ferritin 9.54 ng/mL (11.1-264)
== END 2024-10-07 12:35 | disposition home or self-care (01) ==
PROVIDERS: PCP Family Medicine; Visit Provider Family Medicine
DX: M43.16 Spondylolisthesis, lumbar region (principal); M47.816 Spondylosis without myelopathy or radiculopathy, lumbar region; M43.26 Fusion of spine, lumbar region; I10 Essential (primary) hypertension; D50.9 Iron deficiency anemia, unspecified; E03.9 Hypothyroidism, unspecified; R74.8 Abnormal levels of other serum enzymes
CPT/HCPCS: 36415; 72148; 73721; 80048; 80076; 82607; 82728; 83540; 83550; 84439; 84443; 85025

== ENCOUNTER 2024-12-12 11:15 | Outpatient (CLI) | payer MEDICARE, SELFPAY ==
[2024-12-12 11:38] LABS: Add Urine Microscopic? YES; Appearance Urine Clear (Clear); Bacteria Urine 4+ /hpf; Bilirubin Urine Negative (Negative); Blood Urine Negative (Negative); Color Urine Yellow (Yellow); Glucose Urine UA 3+ mg/dL (Negative); Ketones Urine Negative (Negative); Leukocyte Esterase Ur Trace LEU/UL (Negative); Nitrate Urine Positive (Negative); Non Pathogenic Casts 0-2; Protein Urine Negative (Negative); RBC Urine 0-2 /hpf (0-2); Specific Grav Ur 1.017 (1.001-1.035); Squamous Epithelial Cell Urine None Seen /hpf (Few); Urobilinogen Urine 0.2 mg/dL (<2.0); WBC Urine 0-5 /hpf (0-3)
--- OUTSIDE RECORDS SUMMARY | 2024-12-12 11:42 | XMS_ITS | Encounter Summary ---
Author Organization [facility] Care Team Providers Care Desizing Pad Operator Name Role Phone Raji Bourne MD Primary Care Provider [phone] Encounter Details Date Type Department Care Team (Latest Contact Info) Description 03/15/2017 Orders Only [facility] ProviderHaroldo MD [address] [place] [id number] Social History Tobacco Use Types Packs/Day Years Used Date Smoking Tobacco: Never Alcohol Use Standard Drinks/Week Comments No 0 (1 standard drink = 0.6 oz pur e alcohol) Comments Unknown Sex and Gender Information Value Date Recorded Sex Assigned at Not on file Legal 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 difficile suspected 02/15/2024 02/15/202402/14 12:03 PM CDT documented as of this encounter Care Teams Desizing Pad Operator Relationship Specialty Start Date End Date Raji Bourne MD PCP - General 08/18/14 documented as of this encounter
--- OUTSIDE RECORDS SUMMARY | 2024-12-12 11:42 | XMS_ITS | Clinical Summary ---
Author Organization [facility] Address [address] [place] [address] Care Team Providers Care Combatant Swimmer Name Role Phone Raji Bourne MD Primary Care Provider [phone] Allergies Active Allergy Reactions Criticality Noted Date Comments Adhesive Hives,Rash High Reaction: Hives, Dulaglutide Nausea And Vomiting Low 06/29/2023 Fentanyl Itching High Oxycodone-Acetaminophen Itching Low This is a home med-causes itching and she takes benadryl with it. Trazodone Other (See comments) Low Reaction: heart races. Medications calcium carbonate (OS-WHITNEY) 1,500 mg (600 mg elemental) tablet Take 1 tablet (1,500 mg total) by mouth daily Active cholecalciferol (VITAMIN D-3) 2000 unit tablet Take 1 tablet (2,000 Units total) by mouth daily Active multivit xyasvrax-rkoe-AV-c alcium (THERA-M) 9 mg iron-400 mcg tabletIndications: Vitamin Deficiency Prevention Take 1 tablet by mouth daily Active aspirin 81 mg enteric coated tablet Take 1 tablet (81 mg total) by mouth daily Active rosuvastatin (CRESTOR) 20 mg tablet Take 1 tablet (20 mg total) by mouth daily Active PARoxetine (PAXIL) 40 mg tablet Take 1 tablet (40 mg total) by mouth every morning Active glimepiride (AMARYL) 2 mg tabletIndications: type 2 diabetes mellitus Take 1 tablet (2 mg total) by mouth daily before breakfast Active amLODIPine (NORVASC) 5 mg tablet Take 1 tablet (5 mg total) by mouth daily Active fluticasone propionate (FLONASE) 50 mcg/actuation nasal spray Administer 2 sprays into each nostril daily Active gabapentin (NEURONTIN) 300 mg capsule Take 1 capsule (300 mg total) by mouth 3 (three) times a day Active rOPINIRole (REQUIP) 1 mg tablet Take 1 tablet (1 mg total) by mouth as directed Take 1 mg in the morning and 2 mg at bedtime Active cyclobenzaprine (FLEXERIL) 5 mg tablet Take 1 tablet (5 mg total) by mouth 4 (four) times a day as needed for muscle spasms Active metFORMIN XR (GLUCOPHAGE XR) 500 mg 24 hr tablet Take 2 tablets (1,000 mg total) by mouth daily with dinner Active SUMAtriptan (IMITREX) 50 mg tabletIndications: Migraine Take 1 tablet (50 mg total) by mouth once as needed for migraine May repeat dose once in 2 hours if no relief. Do not exceed 2 doses in 24 hours. Active ondansetron ODT (ZOFRAN-ODT) 4 mg disintegrating tabletIndications: Nausea and Vomiting Take 1 tablet (4 mg total) by mouth every 6 (six) hours as needed for nausea or vomiting 20 tablet 01/09/20 23 Active dapagliflozin propanediol (FARXIGA) 5 mg tablet Take 1 tablet (5 mg total) by mouth every morning Active cetirizine (ZyrTEC) 10 mg tablet Take 1 tablet (10 mg total) by mouth every morning Active eszopiclone (LUNESTA) 3 mg tabletIndications: Sleep disorder Take 1 tablet (3 mg total) by mouth nightly at bedtime 30 tablet 11/05/19 24 Active oxyCODONE-acetamin ophen (PERCOCET) 5-325 mg per tabletIndications: Pain Take 1 tablet by mouth every 4 (four) hours as needed for pain 10 tablet 11/15/19 24 Active warfarin (COUMADIN) 5 mg tabletIndications: Venous Thrombosis,atrial fibrillation Take 1 tablet (5 mg total) by mouth daily 11/16/19 24 Active Additional Information Patient not taking.Reported on 07/23/2024 warfarin (COUMADIN) 1 mg tablet Take 1 tablet (1 mg total) by mouth daily 11/25/19 24 Active clindamycin (CLEOCIN) 300 mg capsule TAKE 1 CAPSULE BY MOUTH EVERY 8 HOURS FOR 10 DAYS 12/24/19 24 Active apixaban (ELIQUIS) 5 mg tablet Take 1 tablet (5 mg total) by mouth 2 (two) times a day Active omeprazole (PriLOSEC) 40 mg capsule Take 1 capsule (40 mg total) by mouth daily Active Active Problems Problem Noted Date Diagnosed Date Anemia 05/29/2024 Assessment & Plan (05/29/2024 12:26 PM CDT): Chronic anemia since December 2022. Colonoscopy February 2024 with poor prep, multiple tubular adenomas, diverticulosis, and internal hemorrhoids. Random colon biopsies were unremarkable. -given poor prep, we will repeat colonoscopy with extended bowel prep -schedule EGD same day as colonoscopy -The risks (risks of bleeding, infection, perforation requiring surgery, missed polyps/cancer, dental injury, aspiration pneumonia, anesthesia complications such as drug reaction and cardiopulmonary complications including rare chance of ), benefits, and alternatives of the planned procedure were explained to the patient who understands and consents to having procedure done. Family history of esophageal cancer 05/29/2024 Assessment & Plan (05/29/2024 12:27 PM CDT): Father had esophageal cancer Pancreatic cyst 11/29/2023 Diarrhea 11/29/2023 Assessment & Plan (05/29/2024 12:25 PM CDT): Has chronic constipation overflow diarrhea. -high-fiber diet -recommend Metamucil b.i.d. -MiraLax OT p.r.n. Assessment & Plan (11/29/2023 11:06 AM NAIL MAKER): Chronic diarrhea alternating with constipation. Patient states last colonoscopy several years ago, no records available for review. -we will order labs and stool studies for further evaluation -schedule colonoscopy Incontinence of feces 11/29/2023 Assessment & Plan (05/29/2024 12:27 PM CDT): Chronic fecal incontinence. Patient had anorectal manometry, findings indicate weak sphincter and recommended pelvic floor therapy. -Metamucil b.i.d. -Kegel exercises discussed -discuss referral for pelvic floor therapy, patient defers Assessment & Plan (11/29/2023 11:07 AM NAIL MAKER): Chronic fecal incontinence. Patient had anorectal manometry, findings indicate weak sphincter and recommended pelvic floor therapy. -Metamucil b.i.d. -refer to pelvic floor therapy Anticoagulation goal of INR 2 to 3 11/13/2023 Assessment & Plan (11/16/2023 7:37 AM NAIL MAKER): INR 2.8. Continue coumadin 5mg daily, repeat INR 11/18 & 11/21 with HH. Assessment & Plan (11/13/2023 12:41 PM NAIL MAKER): INR 2.6. Continue Coumadin 5mg TuThSat, 6mg SuMWF. Repeat INR 11/15. Closed displaced intertrochanteric fracture of l eft femur 10/29/2023 Assessment & Plan (11/15/2023 4:26 PM NAIL MAKER): S/p on 10/30/2023 for left hip open reduction internal fixation with trochanteric nailing on the left per Dr. Wheeler. WBAT. Coumadin for DVT prop.Pain controlled with Percocet q4h PRN. Assessment & Plan (11/13/2023 12:48 PM NAIL MAKER): Ortho fu moved to 11/15. Will stop scheduled pain meds q4, change to PRN & give 1 dose Percocet qam merlyn x 10d. Continue Tyl & Flexeril PRN. Assessment & Plan (11/11/2023 9:40 AM NAIL MAKER): S/p on 10/30/2023 for left hip open reduction internal fixation with trochanteric nailing on the left per Dr. Wheeler. WBAT. Coumadin for DVT prop.Pain controlled with Percocet q4h merlyn & Tyl PRN. Monitor for abiility to change schedule dosing. History of pulmonary embolism 10/29/2023 History of migraine headaches 10/29/2023 Depression 10/29/2023 IPMN (intraductal papillary mucinous neoplasm) 0 01/08/2023 Assessment & Plan (05/29/2024 12:17 PM CDT): MRI of the pancreas December 2022 with IPMN. 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 -repeat MRI of the pancreas December 2024 for surveillance Assessment & Plan (11/29/2023 11:05 AM NAIL MAKER): MRI of the pancreas December 2022 with IPMN. -repeat MRI of the pancreas December 2023 for surveillance Primary hypertension 01/06/2023 Assessment & Plan (11/11/2023 9:41 AM NAIL MAKER): BP stable, pulse fluctuating. Monitor. History of DVT in adulthood 01/06/2023 RLS (restless legs syndrome) 01/06/2023 Dyslipidemia 01/06/2023 Primary osteoarthritis involving multiple joints 01/06/2023 Assessment & Plan (11/13/2023 12:44 PM NAIL MAKER): XR negative. Order Diclofenac cream. Monitor. Gastroesophageal reflux disease without esophagi tis 01/06/2023 Assessment & Plan (05/29/2024 12:24 PM CDT): Chronic GERD, well-controlled with omeprazole 40 mg p.o. daily. -continue omeprazole 40 mg p.o. daily -RECOMMENDATIONS given include: anti-reflux maneuvers, Avoid acidic foods like oranges and tomatoes., avoidance of spicy foods, avoid eating 3-4 hours before bed, elevation of the head of the bed, and weight loss Type 2 diabetes mellitus wit h diabetic neuropathy, without long-term current use of insulin 01/06/2023 Assessment & Plan (11/11/2023 9:41 AM NAIL MAKER): No recent BS. Will monitor with BMP. Conitnue Amaryl, Metformin, Farxiga. Chronic back pain 01/06/2023 Biliary obstruction 01/06/2023 Spinal stenosis of lumbar region 02/01/2017 Obesity with body mass index 30 or greater 02/24 Hernia, incisional 10/28/2015 Resolved Problems Problem Noted Date Diagnosed Date Resolved Date Fall, initial encounter 10/29/202310/23 Elevated LFTs 01/06/2023 11/15/2023 Acute upper abdominal pain 01/06/2023 0 01/06/2023 Dilated cbd, acquired 01/06/20232022 Leukocytosis 01/06/2023 01/06/2023 Chest pain 2014 06/03/2018 Overview (01/25/2017): Chest pain Encounters Date Type Department Care Team Description 11/26/2024 Telephone [facility] Gastroenterology at [address] [place] [id number] Quintin Beclher MD 11/18/2024 8:02 AM NAIL MAKER - 11/18/2024 11:59 PM NAIL MAKER Hospital Encounter [facility] [address] [place] [id number] Anemia, unspecified type Discharge Disposition: Discharge to home or self care 11/11/2024 8:44 AM NAIL MAKER - 11/11/2024 11:59 PM NAIL MAKER Hospital Encounter [facility] [address] [place] [id number] Hx of colonic polyps Discharge Disposition: Discharge to home or self care from Last 3 Months Immunizations Immunization Administration Dates Next Due Influenza, Unspecified 07/24/2022 Surgical History Surgery Date Site/Laterality Comments CATARACT EXTRACTION Cataract extraction TONSILLECTOMY Tonsillectomy CHOLECYSTECTOMY Cholecystectomy COLONOSCOPY UPPER GASTROINTESTINAL ENDOSCOPY KNEE ARTHROSCOPY Right NECK SURGERY LUMBAR DISC SURGERY LUMBAR SPINE SURGERY HIP SURGERY 10/30/2023 Left GASTRIC BYPASS 2000 SECTION x1 DILATION AND CURETTAGE OF UTERUS x6 Medical History Medical History Date Comments Hx Other Medical RLS; Comments: [facility] 07/06/2014 - Hx Other Medical DVT; Comments: [facility] 07/06/2014 - Hypertension Hypertension Hx Other Medical diabetes; Comme nts: [facility] 07/06/2014 - Hyperlipidemia Hyperlipidemia; Comments: [facility] 07/06/2014 - Hx Other Medical OA; Comments: [facility] 07/06/2014 - Hx Other Medical DJD; Comments: [facility] 07/06/2014 - Hx Other Medical COLIN; Comments: [facility] 07/06/2014 - Hx Other Medical Gastric ulcer; Comments: [facility] 07/06/2014 - Hx Other Medical Vit B 12 def; C omments: [facility] 07/06/2014 - Hx Other Medical rotator cuff Re pair; Comments: [facility] 07/06/2014 - Hx Other Medical cervical fusion ; Comments: [facility] 07/06/2014 - Hx Other Medical hysterectomy; C omments: [facility] 07/06/2014 - Hx Other Medical ; Comm ents: [facility] 07/06/2014 - Hx Other Medical right knee repl acement; Comments: [facility] 07/06/2014 - Hx Other Medical gastric bypass; Comments: [facility] 07/06/2014 - Hx Other Medical breast biopsy; Comments: [facility] 07/06/2014 - Hx Other Medical ? TIA; Comments : [facility] 07/06/2014 - Primary hypertension 01/06/2023 History of DVT in adulthood 01/06/2023 Primary osteoarthritis invol ving multiple joints 01/06/2023 Gastroesophageal reflux dise ase without esophagitis 01/06/2023 Type 2 diabetes mellitus wit h diabetic neuropathy, without long-term current use of insulin (HCC) 01/06/2023 Chronic back pain 01/06/2023 Levoscoliosis of lumbar spine DDD (degenerative disc disease), lumbar History of lumbar fusion, L3-L4 2004, 2016 Spondylolisthesis, lumbar region Chronic constipation Colon polyp Family History Medical History Relation Name Comments Esophageal cancer Father Heart disease Father Cardiovascular disease; Cause of : Cardiovascular disease Hypertension Father Family history of hypertension - (Added by TW Conv) Diabetes Mother Family history of diabetes mellitus - (Added by TW Conv) Heart disease Mother Cardiovascular disease; Cause of : Cardiovascular disease Hypertension Mother Family history of hypertension - (Added by TW Conv) Stroke Mother Family history of cerebrovascular accident (CVA) - (Added by TW Conv) Relation Name Status Comments Father Mother Social History Tobacco Use Types Packs/Day Years Used Date Smoking Tobacco: Never Smokeless Tobacco: Never Alcohol Use Standard Drinks/Week Comments No 0 (1 standard drink = 0.6 oz pur e alcohol) [facility] Utilities Answer Date Recorded In the past 12 months has e [employer], gas, oil, or water Live Gamer threatened to shut off services in your home? No 10/30/2023 Social Connection and Isolat ion Panel [NHANES] Answer Date Recorded In a typical week, how many times do you talk on the phone with family, friends, or neighbors? More than three times a week 10/30/2023 How often do you get togethe r with friends or relatives? More than three times a week 10/30/2023 How often do you attend chur ch or amish services? More than 4 times per year 10/30/2023 Do you belong to any clubs o r organizations such as latter day groups, unions, fraternal or athletic groups, or school groups? No 10/30/2023 How often do you attend meet ings of the clubs or organizations you belong to? Never 10/30/2023 Are you , , di vorced, , never , or living with a partner? 10/30/2023 AUDIT-C Answer Date Recorded Q1: How often do you have a drink containing alcohol? Never 07/23/2024 Q2: How many drinks containi ng alcohol do you have on a typical day when you are drinking? Patient does not drink Q3: How often do you have si x or more drinks on one occasion? Never 07/23/2024 Overall Financial Resource Strain (CARDIA) Answe r Date Recorded How hard is it for you to pa y for the very basics like food, housing, medical care, and heating? Not hard at all 10/30/2023 Hunger Vital Sign Answer Date Recorded Within the past 12 months, y ou worried that your food would run out before you got the money to buy more. Never true 10/30/19 24 Within the past 12 months, t he food you bought just didn't last and you didn't have money to get more. Never true 10/30/2023 PRAPARE - Transportation Answer Date Re corded In the past 12 months, has l ack of transportation kept you from medical appointments or from getting medications? No 06/2024 In the past 12 months, has l ack of transportation kept you from meetings, work, or from getting things needed for daily living? No 10/30/2023 Housing Stability Vital Sign Answer Sergio e Recorded In the last 12 months, was t here a time when you were not able to pay the mortgage or rent on time? No 10/30/2023 In the last 12 months, how many places have you lived? 1 10/30/2023 In the last 12 months, was t here a time when you did not have a steady place to sleep or slept in a chcf (including now)? No 10/30/2023 Personal Safety Answer Date Recorded Have you ever been in or are you currently in a harmful physical or emotional relationship or is someone making you feel afraid or unsafe? Denies 07/23/2024 Comments No Sex and Gender Information Value Date Recorded Sex Assigned at Not on file Legal Sex Female 11:58 PM NAIL MAKER Gender Identity Not on file Sexual Orientation Not on file Obstetrics History Last Filed Vital Signs Vital Sign Reading Time Taken Comments Blood Pressure 145/85 07/23/2024 8:49 AM CDT Pulse 87 07/23/2024 8:49 AM CDT Temperature 36.4 C (97.5 F) 07/23/2024 8:17 AM CDT Respiratory Rate 17 07/23/2024 8:49 AM CDT Oxygen Saturation 95% 07/23/2024 8:49 AM CDT Inhaled Oxygen Concentration - - Weight 73.5 kg (162 lb) 07/23/2024 6:44 AM CDT Height 165.1 cm (5' 5 ) 07/23/2024 6:44 AM CDT Body Mass Index 26.96 07/23/2024 6:44 AM CDT Plan of Treatment Health Maintenance Due Date Last Done Comments Albumin Creatinine Ratio, Urine 1955 Breast Cancer Screening-Mammogram 1955 Depression Screening 1955 Osteoporosis Screening-Bone Density Scan 1955 Dilated Eye Exam 1955 Foot Exam 1955 Hepatitis B Screening 1974 Pneumococcal vaccine 65+ (2 of 2 - PCV) 02/21/2016 02/20/2015 Lipid Panel 01/11/2017 01/12/2016, 02/20/2015 Well Visit 65+ 2021 Hemoglobin A1C 05/05/2024 11/05/2023, 01/07/2023 Covid-19 Vaccine (4 - 2023-2 5 season) 2024 09/13/2021, 01/19/2021, 12/29/2020 Influenza Vaccine (#1) 2024 , 09/02/2021, 07/06/2020, Additional history exists eGFR 11/15/2024 11/15/2023, 10/22, 11/04/2023, Additional history exists Fall Risk Assessment 07/23/2025 07/23/2024 Colon Cancer Screening-Colonoscopy 07/23/2027 07/23/2024, 02/27/2024 DTaP/Tdap/Td Vaccine (2 - Td or Tdap) 05/01/2029 05/01/2019 Zoster Vaccine Completed 09/05/2020, 06/22, 05/21/2017 Hepatitis C Screening Completed 01/07/2023 Colon Cancer Screening-CT Colonography Discontinued 07/23/2024, 02/27/2024 Colon Cancer Screening-DNA Stool Discontinued 07/23/20 24, 02/27/2024 Colon Cancer Screening-FIT Discontinued 07/23/2024, Colon Cancer Screening-Sigmoidoscopy Discontinued 07/23/2024, 02/27/2024 Medical Devices Implanted Type Area Reel And Rewinder Operator Device Identifier Shelf Expiration Date Model / Serial / Lot Shoulder Bilateral: Shoulder Description:Bilater Rotator cuff surgery Metal In Neck N/A: Neck Metal In Lumbar N/A: Spine Lumbar Description:L5-L6 Metal Right: Knee Synthes Tfn-Advanced 10.35mm 90mm Cannulated 3.5mm Screw Bone T-U3uc-3pa 04.038.190s - [id number] Implanted:Qty: 1 on 10/30/2023 by Virginia Wheeler DO at [facility] Left: Hip Synthes I [id number] 04/20/2033 04.038.19 0S / / [id number] Synthes Tfn-Advanced Lateral Relief Cut 9mm 170mm Cannulated Femoral 04.037.912s - [id number] Implanted:Qty: 1 on 10/30/2023 by Virginia Wheeler DO at [facility] Left: Hip Synthes I [id number] 06/21/2031 04.037.91 2S / / [id number] Synthes 5mm 4.3mm 44mm Lock Self Tap Blunt Tip 2 Lead Tibial T25 Full 04.005.534s - [id number] Implanted:Qty: 1 on 10/30/2023 by Virginia Wheeler DO at [facility] Left: Hip Synthes I [id number] 09/20/2027 04.005.53 4S / / Procedures Procedure Name Priority Date/Time Associated Diagnosis Comments XR ABDOMEN AP 1 VIEW Schedule Routine, Read Routine (OP Routine) 11/18/2024 9:03 AM NAIL MAKER Anemia, unspecified type FL BARIUM ENEMA W AIR CONTRAST Schedule Routine, Read Routine (OP Routine) 11/11/2024 11:02 AM NAIL MAKER Hx of colonic polyps COLONOSCOPY 07/23/2024 7:46 AM CDT EGFR Routine 11/15/2023 11:40 AM NAIL MAKER HEMOGLOBIN A1C Routine 11/05/2023 8:55 AM NAIL MAKER HEPATITIS PANEL, ACUTE Routine 01/07/2023 3:31 PM CDT SERUM LIPID PANEL Routine 01/12/2016 1:0 3 AM CDT from Last 3 Months or Most Recently Relevant to Health Maintenance Results * XR Abdomen Ap 1 Vw (11/18/2024 9:03 AM NAIL MAKER) Anatomical Region Laterality Modality Body, Abdomen N/A Computed Radiogr aphy, Computed Radiography 11/20/2024 6:43 AM NAIL MAKER Narrative 11/20/2024 6:45 AM NAIL MAKER EXAM DESCRIPTION: XR ABDOMEN AP 1 VIEW REASON FOR STUDY: Structural Steel Erector Image for Small Bowel Follow Thru for anemia Original order for Small Bowel Follow Thru, patient still has residual barium sulfate throughout abdomen from previous barium enema study on 11/11/2024. Patient directed to contact ordering provider's office for further instructions. Reduced services modifier applied to exam. TECHNIQUE: Supine view COMPARISON: None available FINDINGS: Moderate gaseous distention small bowel. Mild distention large bowel. Large stool burden ascending and transverse colon primarily. Residual contrast material identified within the colon filling numerous diverticula diffusely. Appendix also opacified. Surgical clips noted. Severe bony degenerative changes lumbosacral spine with scoliosis. IMPRESSION: Large stool burden ascending and transverse colon. Residual contrast material throughout colon. Moderate gaseous distention small bowel. THIS IS AN ELECTRONICALLY VERIFIED FINAL REPORT 11/20/2024 6:45 AM - Electronically signed by Edgardo Mora M.D. RB T: Report ID: [id number] Reading Location: [id number] Procedure Note Edgardo Mora MD - 11/20/2024 EXAM DESCRIPTION: XR ABDOMEN AP 1 VIEW REASON FOR STUDY: Structural Steel Erector Image for Small Bowel Follow Thru for anemia Original order for Small Bowel Follow Thru, patient still has residualbarium sulfate throughout abdomen from previous barium enema study on 11/11/2024. Patient directed to contact ordering provider's office for further instructions. Reduced services modifier applied to exam. TECHNIQUE: Supine view COMPARISON: None available FINDINGS: Moderate gaseous distention small bowel. Mild distention large bowel.Large stool burden ascending and transverse colon primarily. Residual contrast material identified within the colon filling numerous diverticula diffusely. Appendix also opacified. Surgical clips noted. Severe bony degenerative changes lumbosacral spine with scoliosis. IMPRESSION: Large stool burden ascending and transverse colon. Residual contrast material throughout colon. Moderate gaseous distention small bowel. THIS IS AN ELECTRONICALLY VERIFIED FINAL REPORT 11/20/2024 6:45 AM - Electronically signed by Edgardo Mora M.D. RB T: Report ID: [id number] Reading Location: [place] [address] Quintin Belcher MD IMG XR PROCEDURES Final Result * FL Barium Enema W Air Contrast (11/11/2024 11:02 AM NAIL MAKER) Anatomical Region Laterality Modality Body N/A Computed Radiogr aphy, Computed Radiography 11/11/2024 11:1 4 AM NAIL MAKER Narrative 11/11/2024 11:26 AM NAIL MAKER EXAM DESCRIPTION: FL BARIUM ENEMA W AIR CONTRAST REASON FOR STUDY: hx of colon polyps, incomplete colonoscopy due to poor prep Anemia and chronic diarrhea; patient had colonoscopy/EGD 07/23/2024, incomplete colonoscopy due to residual stool RADIATION DOSE: Dose: [id number] uGym2 Dose Area Product (DAP) TECHNIQUE: Following retrograde filling of the colon with barium and air, fluoroscopic spot and overhead imaging of the colon was obtained and saved to PACS. COMPARISON: None. FINDINGS: Structural Steel Erector demonstrates successful prep. Cholecystectomy. Gastric surgery. Hysterectomy. Lumbar surgery. No filling defects. No strictures. Normal wall movement with insufflation. Sigmoid and descending diverticulosis. IMPRESSION: Diverticulosis. No suspicious abnormalities. THIS IS AN ELECTRONICALLY VERIFIED FINAL REPORT 11/11/2024 11:26 AM - Electronically signed by Teofilo ASHBY T: Report ID: [id number] Reading Location: [id number] Procedure Note Teofilo Dunn MD - 11/11/2024 EXAM DESCRIPTION: FL BARIUM ENEMA W AIR CONTRAST REASON FOR STUDY: hx of colon polyps, incomplete colonoscopy due to poor prep Anemia and chronic diarrhea; patient had colonoscopy/EGD 07/23/2024, incomplete colonoscopy due to residual stool RADIATION DOSE: Dose: [id number] uGym2 Dose Area Product (DAP) TECHNIQUE: Following retrograde filling of the colon with barium and air, fluoroscopic spot and overhead imaging of the colon was obtained and savedto PACS. COMPARISON: None. FINDINGS: Structural Steel Erector demonstrates successful prep. Cholecystectomy. Gastric surgery. Hysterectomy. Lumbar surgery. No filling defects. Nostrictures. Normal wall movement with insufflation. Sigmoid and descending diverticulosis. IMPRESSION: Diverticulosis. No suspicious abnormalities. THIS IS AN ELECTRONICALLY VERIFIED FINAL REPORT 11/11/2024 11:26 AM - Electronically signed by Teofilo ASHBY T: Report ID: [id number] Reading Location: [id number] Quintin Belcher MD IMG FLUOROSCOPY PROCEDURES Final Result * Colonoscopy (07/23/2024 7:46 AM CDT) Anatomical Region Laterality Modality Other Narrative Procedure Note Quintin Belcher MD - 07/23/2024 7:46 AM CDT [facility] GI ENDOSCOPY Patient Name: Alee Ssoa Procedure Date: 07/23/2024 7:46 AM Date of : 1955 Admit Type: Outpatient Age: 68 Gender: Female Attending MD: Quintin Belcher M.D. Room: [facility] ENDOSCOPY ROOM 06 Note Status: Finalized Procedure: Colonoscopy Indications: High risk colon cancer surveillance: Personalhistory of colonic polyps, Chronic diarrhea, Anemia Referring MD: Raji Bourne M.D. Providers: Quintin Belcher M.D. Medicines: Monitored Anesthesia Care Complications: No immediate complications. Estimated Blood Loss: Estimated blood loss: none. Procedure: Pre-Anesthesia Assessment: - Prior to the procedure, a History and Physicalwas performed, and patient medications and allergieswere reviewed. The risks and benefits of the procedureand the sedation options and risks were discussed withthe patient. All questions were answered and informed consent was obtained. Patient identification and proposed procedure were verified. After reviewingthe risks and benefits, the patient was deemed in satisfactory condition to undergo the procedure.The anesthesia plan was to use monitored anesthesiacare (MAC). Immediately prior to administration of medications, the patient was re-assessed foradequacy to receive sedatives. The heart rate, respiratory rate, oxygen saturations, blood pressure, adequacyof pulmonary ventilation, and response to care were monitored throughout the procedure. The physical status of the patient was re-assessed after the procedure. The benefits, risks and alternatives of theprocedure and sedation were discussed and informed consentwas obtained. All questions were answered. Please referto the signed informed consent document in the medical record. The scope was passed under direct vision.The [id number]-[id number] colonoscope was introduced through theanus and advanced to the cecum, identified byappendiceal orifice and ileocecal valve. The colonoscopy was performed without difficulty. The patient tolerated the procedure well. The quality of the bowel preparation was poor. Scope withdrawal time was 9 minutes. Prep was administered in a split dose. Findings: The perianal and digital rectal examinations were normal. A 10 mm polyp was found in the ascending colon. The polyp wassessile. The polyp was removed with a hot snare. Resection and retrieval were complete. Two sessile polyps were found in the hepatic flexure. The polyps were6 to 10 mm in size. These polyps were removed with a hot snare.Resection and retrieval were complete. A diminutive polyp was found in the hepatic flexure. The polyp was removed with a cold biopsy forceps. Resection and retrieval were complete. Many medium-mouthed diverticula were found in the sigmoid colon. Non-bleeding internal hemorrhoids were found during retroflexion. The hemorrhoids were small. Biopsies for histology were taken with a cold forceps from the right colon and left colon for evaluation of microscopic colitis. Impression: - Preparation of the colon was poor. - One 10 mm polyp in the ascending colon, removedwith a hot snare. Resected and retrieved. - Two 6 to 10 mm polyps at the hepatic flexure, removed with a hot snare. Resected and retrieved. - One diminutive polyp at the hepatic flexure,removed with a cold biopsy forceps. Resected andretrieved. - Diverticulosis in the sigmoid colon. - Non-bleeding internal hemorrhoids. - Biopsies were taken with a cold forceps from the right colon and left colon for evaluation of microscopic colitis. Recommendation: - Patient has a contact number available for emergencies. The signs and symptoms of potential delayed complications were discussed with thepatient. Return to normal activities tomorrow. Written discharge instructions were provided to thepatient. - High fiber diet. - Continue present medications. - Await pathology results. - Order barium enema given poor prep on today'sexam as well as prior colonoscopy. If barium enema negative, repeat colonoscopy in 3 years. All future colonoscopy with extended bowel prep. Quintin Belcher M.D. Quintin Belcher M.D. 07/23/2024 8:18:20 AM . Number of Addenda: 0 Note Initiated On: 07/23/2024 7:46 AM Recognized by the [place] [employer] for promoting quality in endoscopy Quintin Belcher MD ENDOSCOPY PROCEDURES Final Resul t * eGFR (11/15/2023 11:40 AM NAIL MAKER) eGFR 104 mL/min/1. 73 m2 [facility] Comment: Interpretive Data Reference Interval Normal >/= 90 mL/min/1.73m2 Mildly decreased* 60 - 89 mL/min/1.73m2 Mildly to moderately decreased 45 - 59 mL/min/1.73m2 Moderately to severely decreased 30 - 44 mL/min/1.73m2 Severely decreased 15 - 29 mL/min/1.73m2 Kidney Failure < 15 mL/min/1.73m2 *Relative to young adult level Estimated glomerular filtration rate is determined by the 2020 CKD-EPI equation recommended by the National Kidney Foundation (A Unifying Approach to GFR Estimation: Recommendations of the NKF-ASK Task Force on Reassessing the Inclusion of Race in Diagnosing Kidney Disease, JASN 202). The CKD-EPI equation should not be used for patients with unstable renal function and has not been validated in children and those over 70. Current interpretive data was last reviewed 2021. [facility], [address] [place] [address]., [id number] Blood 11/15/2023 11:4 0 AM NAIL MAKER 11/15/2023 11:47 AM NAIL MAKER Holly Pete ENROLLMENT COUNSELOR LAB BLOOD ORDERABLES Final Result Performing Organization Address [facility] Co de Phone Number [address] [address] * (ABNORMAL) Hemoglobin A1c (11/05/2023 8:55 AM NAIL MAKER) [facility] Hgb A1C 8.3(H) 4.0 - 5.6 % [facility] Estimated Average Glucose 192 mg/dL [facility] Comment: The ADA recommends reporting an estimated Average Glucose (eAG) with all Hemoglobin A1c results using the equation derived from a study of 507 normal and diabetic adults. Minority populations were underrepresented and children were not included. (Diabetes Care 31:1504-8650, 2008). The eAG is not equivalent to a fasting glucose. Blood 11/05/2023 8:55 AM NAIL MAKER 11/05/2023 9:03 AM NAIL MAKER Sabine Salas ENROLLMENT COUNSELOR LAB BLOOD ORDERABLES Mariama l Result Performing Organization Address [facility] Co de Phone Number [address] [address] * Hepatitis panel, acute (01/07/2023 3:31 PM CDT) [facility] Hep A IgM Nonreactive Nonreactive [facility] Comment: Interpretive Data: If Hep A IgM Ab is reported as Equivocal, a new sample should be drawn in two weeks for testing. Current interpretive data was last revised on 20. Hep B core IgM Nonreactive Nonreactive [facility] Comment: Interpretive Data If HepB Core IgM Ab is reported as Equivocal, a new sample should be drawn in two weeks for testing. Current interpretive data was last revised on 20. Hep C Ab Nonreactive Nonreactive [facility] Comment: Interpretive Data Nonreactive: Antibodies to HCV not detected. Does NOT exclude the possibility of recent exposure to HCV. Equivocal: Equivocal for HCV antibodies. Supplemental molecular testing will be automatically performed to determine infection status in accordance with current CDC screening recommendations. Reactive: Positive for HCV antibodies. This may represent current or past HCV infection. Supplemental molecular testing will be automatically performed to determine current infection status in accordance with current CDC screening recommendations. Interpretive data was last revised on 2020. HepBsAg Nonreactive Nonreactive [facility] Blood 01/07/2023 3:31 PM CDT 01/07/2023 3:46 PM CDT Pritesh Villa MD LAB MICROBIOLOGY - GENERAL ORDERABLES Final Result [facility] [address] [place] [address] * (ABNORMAL) Serum lipid panel (01/12/2016 1:03 AM CDT) Cholesterol 80 0 - 200 mg/dl HISTORICAL RESULTS Comment: Interpretive Data Desirable: <200 mg/dL Borderline high: 200-239 mg/dL High: >240 mg/dL Literature Reference: National Cholesterol Education Program (NCEP) Expert Panel on Detection, Evaluation, and Treatment of High Blood Cholesterol in Adults (Adult Treatment Panel III). Circulation 2004; 110:227. Current interpretive data was last revised on 2005. HDL 39(L) 40 - 199 mg/dl HISTORICAL RESULTS Comment: Interpretive Data Less than 40 mg/dL - low; A major risk factor for heart disease. Greater than or equal to 60 mg/dL - High; considered protective of heart disease. Literature Reference: See Cholesterol Current interpretive data was last revised on 2008. LDL 29 0 - 129 mg/dl HISTORICAL RESULTS Comment: Interpretive Data Optimal: < 100 mg/dL Near Optimal: 100 - 129 mg/dL Borderline High: 130 - 159 mg/dL High: > 160 mg/dL Literature Reference: See Cholesterol Current interpretive data was last revised on 07. Non-HDL cholesterol, calculated 41 mg/dl HISTORICAL RESULTS Comment: Interpretive Data When triglycerides are >200 mg/dL, non-HDL C is a secondary target of therapy, with a goal 30 mg/dL higher than the identified LDL-C goal. Reference: See Cholesterol Reference. Current interpretive data was last revised 2012. Triglycerides 58 0 - 150 mg/dl HISTORICAL RESULTS Comment: Interpretive Data Desirable: < 150 mg/dL Borderline High: 150 - 199 mg/dL High: > 200 mg/dL Literature Reference: See Cholesterol Current interpretive data was last revised on 07. Serum 01/12/2016 1:03 AM CDT Gini Kumar MD LAB BLOOD ORDERABLES Final Result HISTORICAL RESULTS from Last 3 Months or Most Recently Relevant to Health Maintenance Insurance CHOICE PRF PPO [place] [facility] MEDICARE [facility] Address: [address] [address] [place] [address] MEDICARE SOLUTIONS MEDICARE SOLUTIONS Advance Directives For more information, please contact: [phone] * Full Code (Latest Code Status on File) Date Activated Date Inactivated Comments 10/30/2023 5:16 AM 11/05/2023 8:11 PM * Full Code Date Activated Date Inactivated Comments 10/29/2023 8:44 PM 10/30/2023 5:16 AM * Full Code Date Activated Date Inactivated Comments 01/06/2023 11:56 AM 01/08/2023 5:59 PM Care Teams Combatant Swimmer Relationship Specialty Start Date End Date Raji Bourne MD PCP - General 08/18/14
--- OUTSIDE RECORDS SUMMARY | 2024-12-12 11:42 | XMS_ITS | Clinical Summary ---
Author Organization [facility] Address [address] [place] [address] Care Team Providers Care Technician Submarine Cable Equipment Name Role Phone Raji Bourne MD Primary Care Provider [phone] Allergies Active Allergy Reactions Criticality Noted Date Comments Dulaglutide Nausea and Vomiting Low 06/29/2023 Fentanyl Hives High 05/10/2023 Trazodone Hypotension Medium 05/10/2023 Reaction: heart races. Medications amLODIPine (NORVASC) 5 mg tablet Take 5 mg by mouth daily. Active aspirin (ECOTRIN EC) 81 mg Tablet, Delayed Release (E.C.) Take 81 mg by mouth daily. Active calcium as carbonate (CALTRATE) 1,500 mg (600 mg elemental) Tablet Take 600 mg by mouth daily. Active cholecalciferol , Vitamin D3, 50 mcg (2,000 unit) Tablet Take 2,000 Units by mouth daily. Active cyclobenzaprine (FLEXERIL) 5 mg Tablet Take 5 mg by mouth. Active diclofenac sodium (VOLTAREN) 75 mg Tablet, Delayed Release (E.C.) Take 75 mg by mouth 2 times daily. Active eszopiclone (LUNESTA) 2 mg Tablet Take 2 mg by mouth. 3 Active fluticasone propionate (FLONASE) 50 mcg/spray [place], Suspension nasal inhaler Administer 2 Sprays in each nostril daily. Active glimepiride (AMARYL) 2 mg tablet Take 2 mg by mouth daily before breakfast. Active losartan (COZAAR) 100 mg tablet Take 100 mg by mouth daily. Active metFORMIN (GLUCOPHAGE XR) 500 mg Extended Release 24 hour tablet Take 1,000 mg by mouth. Active omeprazole (PriLOSEC) 40 mg Capsule, Delayed Release(E.C.) Take 40 mg by mouth daily. Active oxyCODONE-aceta minophen (PERCOCET) 5-325 mg tablet Take 2 Tablets by mouth every 4 hours as needed for Pain. Active PARoxetine HCl (PAXIL) 40 mg tablet Take 40 mg by mouth. Active rOPINIRole (REQUIP) 1 mg tablet Take 1 mg by mouth 3 times daily. Active rosuvastatin (CRESTOR) 20 mg tablet Take 20 mg by mouth daily. Active SUMAtriptan (IMITREX) 50 mg tablet Take 50 mg by mouth. Active apixaban (ELIQUIS) 5 mg tablet Take 5 mg by mouth 2 times daily. Active Active Problems No known active problems Family History Medical History Relation Name Comments Throat Cancer Father Heart Disease Sister 1 Relation Name Status Comments Father Mother Sister 1 Alive Sister 2 Alive Sister 3 Alive Sister 4 Son Alive Social History Tobacco Use Types Packs/Day Years Used Date Smoking Tobacco: Former Cigarettes Smokeless Tobacco: Never Tobacco Cessation:Counseling Given: Not Answered Alcohol Use Standard Drinks/Week Comments Never 0 (1 standard drink = 0.6 oz pur e alcohol) Comments Unknown Sex and Gender Information Value Date Recorded Sex Assigned at Not on file 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 Gender Identity Not on file Sexual Orientation Not on file Last Filed Vital Signs Vital Sign Reading Time Taken Comments Blood Pressure 112/73 06/29/2023 10:39 AM CDT Pulse 82 06/29/2023 10:33 AM CDT Temperature 36.4 C (97.6 F) 06/29/2023 10:33 AM CDT Respiratory Rate 12 06/29/2023 10:33 AM CDT Oxygen Saturation 100% 06/29/2023 10:33 AM CDT Inhaled Oxygen Concentration - - Weight 83.1 kg (183 lb 3.2 oz) 06/29/2023 10:33 AM CDT Height 157.5 cm (5' 2 ) 05/10/2023 3:15 PM CDT Body Mass Index 33.51 05/10/2023 3:15 PM CDT Plan of Treatment Health Maintenance Due Date Last Done Comments DIABETES ANNUAL FOOT EXAM 1974 DIABETES ANNUAL RETINAL EXAM 1974 DIABETES MICROALBUMIN ANNUAL SCREEN 1974 LDL CHOLESTEROL ANNUAL 1974 DTAP/TDAP/TD VACCINES (1 - Tdap) 1975 PNEUMOCOCCAL VACCINE 65+ YEARS (1 of 2 - PCV) 08/18/19 75 BREAST CANCER SCREENING 1996 COLORECTAL SCREENING 2001 Colorectal Cancer Screening 2001 FIT-DNA Q 3 years 2001 FIT/FOBT Q 1 year 2001 Flex Sig/CT Colonography Q 5 years 2001 ZOSTER VACCINE (1 of 2) 2006 RSV VACCINE (60+ or ) (1 - Risk 60-74 years 1-dose series) 2016 OSTEOPOROSIS SCREENING 2021 DIABETES HBA1C Q 6 MONTHS 07/10/2023 01/07/2023 INFLUENZA VACCINE (#1) 2024 Insurance [facility] DUAL COMPLETE CHOICE PPO [facility] [id number] Care Teams Technician Submarine Cable Equipment Relationship Specialty Start Date End Date Raji Bourne MD [address] [place] [id number] PCP - General Family Practice 04/11/23
--- OUTSIDE RECORDS SUMMARY | 2024-12-12 11:42 | XMS_ITS | Referral Summary ---
Author Organization [facility] Address [address] [place] [address] Care Team Providers Care Feed Mill Supervisor Name Role Phone Raji Bourne MD Primary Care Provider [phone] Encounters Date Type Department Care Team Description 11/26/2024 Telephone [facility] [place] [address] [place] [address] [address] [place] [id number] Quintin Belcher MD 11/18/2024 8:02 AM MUSIC TYPOGRAPHER - 11/18/2024 11:59 PM [facility] Hospital Encounter [facility] Diagnostic Imaging [address] [place] [address] Anemia, unspecified type Discharge Disposition: Discharge to home or self care 11/11/2024 8:44 AM MUSIC TYPOGRAPHER - 11/11/2024 11:59 PM [facility] Hospital Encounter [facility] [address] [place] [address] Hx of colonic polyps Discharge Disposition: Discharge to home or self care from Last 3 Months Allergies Active Allergy Reactions Criticality Noted Date [...] Units total) by mouth daily Active multivit ikqrofih-rotd-EY-c alcium (THERA-M) 9 mg iron-400 mcg tabletIndications: [...] diarrhea. -high-fiber diet -recommend Metamucil b.i.d. -MiraLax OTC p.r.n. Assessment & Plan (11/29/2023 11:06 AM MUSIC TYPOGRAPHER): Chronic diarrhea alternating with constipation. Patient states [...] defers Assessment & Plan (11/29/2023 11:07 AM MUSIC TYPOGRAPHER): Chronic fecal incontinence. Patient had anorectal manometry, findings indicate weak sphincter and recommended pelvic floor therapy. -Metamucil b.i.d. -refer to pelvic floor therapy Anticoagulation goal of INR 2 to 3 11/13/2023 Assessment & Plan (11/16/2023 7:37 AM MUSIC TYPOGRAPHER): INR 2.8. Continue coumadin 5mg daily, repeat INR 11/18 & 11/21 with HH. Assessment & Plan (11/13/2023 12:41 PM MUSIC TYPOGRAPHER): INR 2.6. Continue Coumadin 5mg TuThSat, 6mg SuMWF. Repeat INR 11/15. Closed displaced intertrochanteric fracture of l eft femur 10/29/2023 Assessment & Plan (11/15/2023 4:26 PM MUSIC TYPOGRAPHER): S/p on 10/30/2023 for left hip open reduction internal fixation with trochanteric nailing on the left per Dr. Wheeler. WBAT. Coumadin for DVT prop.Pain controlled with Percocet q4h PRN. Assessment & Plan (11/13/2023 12:48 PM MUSIC TYPOGRAPHER): Ortho fu moved to 11/15. Will stop scheduled pain meds q4, change to PRN & give 1 dose Percocet qam merlyn x 10d. Continue Tyl & Flexeril PRN. Assessment & Plan (11/11/2023 9:40 AM MUSIC TYPOGRAPHER): S/p on 10/30/2023 for left hip open [...] surveillance Assessment & Plan (11/29/2023 11:05 AM MUSIC TYPOGRAPHER): MRI of the pancreas December 2022 with IPMN. -repeat MRI of the pancreas December 2023 for surveillance Primary hypertension 01/06/2023 Assessment & Plan (11/11/2023 9:41 AM MUSIC TYPOGRAPHER): BP stable, pulse fluctuating. Monitor. History of DVT in adulthood 01/06/2023 RLS (restless legs syndrome) 01/06/2023 Dyslipidemia 01/06/2023 Primary osteoarthritis involving multiple joints 01/06/2023 Assessment & Plan (11/13/2023 12:44 PM MUSIC TYPOGRAPHER): XR negative. Order Diclofenac cream. Monitor. Gastroesophageal [...] 01/06/2023 Assessment & Plan (11/11/2023 9:41 AM MUSIC TYPOGRAPHER): No recent BS. Will monitor with BMP. [...] pain 2014 06/03/2018 Overview (01/25/2017): Chest pain Immunizations Immunization Administration Dates Next Due Influenza, Unspecified 07/24/2022 Social History Tobacco Use Types Packs/Day Years Used Date Smoking Tobacco: Never Smokeless Tobacco: Never Alcohol Use Standard Drinks/Week Comments No 0 (1 standard drink = 0.6 oz pur e alcohol) [facility] Utilities Answer Date Recorded In the past 12 months has [employer], gas, oil, or water company threatened to shut off services in your [...] often do you attend chur ch or religion services? More than 4 times per year 10/30/2023 Do you belong to any clubs o r organizations such as rastafarian groups, unions, fraternal or athletic groups, or [...] place to sleep or slept in a intermediate (including now)? No 10/30/2023 Personal Safety Answer Date Recorded Have you ever been in or are you currently in a harmful physical or emotional relationship or is someone making you feel afraid or unsafe? Denies 07/23/2024 Comments No Sex and Gender Information Value Date Recorded Sex Assigned at Not on file Legal Sex Female 11:58 PM MUSIC TYPOGRAPHER Gender Identity Not on file Sexual Orientation [...] 07/23/2024 6:44 AM CDT Plan of Treatment Not on file Medical Devices Implanted Type Area District Sales Manager Device Identifier Shelf Expiration Date Model / Serial / Lot Shoulder Bilateral: Shoulder Description:Bilater Rotator cuff surgery Metal In Neck N/A: Neck Metal In Lumbar N/A: Spine Lumbar Description:L5-L6 Metal Right: Knee Synthes Tfn-Advanced 10.35mm 90mm Cannulated 3.5mm Screw Bone [id number] 04.038.190s - [id number] Implanted:Qty: 1 on 10/30/2023 by Virginia Wheeler DO at [facility] Left: Hip Synthes I [id number] 04/20/2033 04.038.19 0S / / [id number] Synthes Tfn-Advanced Lateral Relief Cut 9mm 170mm Cannulated Femoral 04.037.912s - [id number] Implanted:Qty: 1 on 10/30/2023 by Virginia Wheeler DO at [facility] Left: Hip Synthes I [id number] 06/21/2031 04.037.91 2S / / [id number] Synthes 5mm 4.3mm 44mm Lock Self Tap Blunt Tip 2 Lead Tibial T25 Full 04.005.534s - [id number] Implanted:Qty: 1 on 10/30/2023 by Virginia Wheeler DO at [facility] Left: Hip Synthes I [id number] 09/20/2027.005.53 4S / / Procedures Procedure Name Priority Date/Time Associated Diagnosis Comments XR ABDOMEN AP 1 VIEW Schedule Routine, Read Routine (OP Routine) 11/18/2024 9:03 AM MUSIC TYPOGRAPHER Anemia, unspecified type FL BARIUM ENEMA W AIR CONTRAST Schedule Routine, Read Routine (OP Routine) 11/11/2024 11:02 AM MUSIC TYPOGRAPHER Hx of colonic polyps COLONOSCOPY 07/23/2024 7:46 AM CDT EGFR Routine 11/15/2023 11:40 AM MUSIC TYPOGRAPHER HEMOGLOBIN A1C Routine 11/05/2023 8:55 AM MUSIC TYPOGRAPHER HEPATITIS PANEL, ACUTE Routine 01/07/2023 3:31 PM CDT SERUM LIPID PANEL Routine 01/12/2016 1:0 3 AM CDT from Last 3 Months or Most Recently Relevant to Health Maintenance Results * XR Abdomen Ap 1 Vw (11/18/2024 9:03 AM MUSIC TYPOGRAPHER) Anatomical Region Laterality Modality Body, Abdomen N/A Computed Radiogr aphy, Computed Radiography 11/20/2024 6:43 AM MUSIC TYPOGRAPHER Narrative 11/20/2024 6:45 AM MUSIC TYPOGRAPHER EXAM DESCRIPTION: XR ABDOMEN AP 1 VIEW REASON 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 RB T: Report ID: [id number] Reading Location: [id number] Quintin Belcher MD IMG XR PROCEDURES Final Result * FL Barium Enema W Air Contrast (11/11/2024 11:02 AM MUSIC TYPOGRAPHER) Anatomical Region Laterality Modality Body N/A Computed Radiogr aphy, Computed Radiography 11/11/2024 11:1 4 AM MUSIC TYPOGRAPHER Narrative 11/11/2024 11:26 AM MUSIC TYPOGRAPHER EXAM DESCRIPTION: FL BARIUM ENEMA W AIR CONTRAST REASON FOR STUDY: hx of colon polyps, incomplete colonoscopy due to poor prep Anemia and chronic diarrhea; patient had colonoscopy/EGD 07/23/2024, incomplete colonoscopy due to residual stool RADIATION DOSE: Dose: 64665.56 uGym2 Dose Area Product (DAP) TECHNIQUE: Following retrograde filling of the colon with barium and air, fluoroscopic spot and overhead imaging of the colon was obtained and saved to PACS. COMPARISON: None. 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 Cholecystectomy. Gastric surgery. Hysterectomy. Lumbar surgery. No filling defects. No strictures. Normal wall movement with insufflation. Sigmoid and descending diverticulosis. IMPRESSION: Diverticulosis. No suspicious abnormalities. THIS IS AN ELECTRONICALLY VERIFIED FINAL REPORT 11/11/2024 11:26 AM - Electronically signed by Teofilo ASHBY T: Report ID: [id number] Reading Location: [place] [address] Procedure Note Teofilo Dunn MD - 11/11/2024 EXAM DESCRIPTION: FL BARIUM ENEMA W AIR CONTRAST REASON FOR STUDY: hx of colon polyps, incomplete colonoscopy due to poor prep Anemia and chronic diarrhea; patient had colonoscopy/EGD 07/23/2024, incomplete colonoscopy due to residual stool RADIATION DOSE: Dose: 16154.56 uGym2 Dose Area Product (DAP) TECHNIQUE: Following retrograde filling of the colon with barium and air, fluoroscopic spot and overhead imaging of the colon was obtained and savedto PACS. COMPARISON: None. 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 Cholecystectomy. Gastric surgery. Hysterectomy. Lumbar surgery. No filling defects. Nostrictures. Normal wall movement with insufflation. Sigmoid and descending diverticulosis. IMPRESSION: Diverticulosis. No suspicious abnormalities. THIS IS AN ELECTRONICALLY VERIFIED FINAL REPORT 11/11/2024 11:26 AM - Electronically signed by Teofilo ASHBY T: Report ID: [id number] Reading Location: [place] [address] Quintin Belcher MD IM FLUOROSCOPY PROCEDURES Final Result * Colonoscopy (07/23/2024 7:46 AM CDT) Anatomical Region Laterality Modality Other Narrative Procedure Note Quintin Belcher MD - 07/23/2024 7:46 AM CDT [facility] Patient Name: Alee Sosa Procedure Date: 07/23/2024 7:46 AM Date of : 1955 Admit Type: Outpatient Age: 68 Gender: Female Attending MD: Quintin Belcher M.D. Room: [facility] ENDOSCOPY ROOM 06 Note Status: Finalized Procedure: [...] The scope was passed under direct vision.The [id number]-[id number] colonoscope was introduced through theanus and advanced [...] On: 07/23/2024 7:46 AM Recognized by the [employer] for promoting quality in endoscopy Quintin Belcher MD ENDOSCOPY PROCEDURES Final Resul t * eGFR (11/15/2023 11:40 AM MUSIC TYPOGRAPHER) eGFR 104 mL/min/1. 73 m2 MONA MAY Comment: Interpretive Data Reference Interval Normal >/= [...] data was last reviewed 2021. [facility], [address] [place] [address]., [address] Blood 11/15/2023 11:4 0 AM MUSIC TYPOGRAPHER 11/15/2023 11:47 AM MUSIC TYPOGRAPHER Holly Pete MANUFACTURING DESIGN ENGINEER LAB BLOOD ORDERABLES Final Result Performing Organization Address [facility] Co de Phone Number [place] [address] [place] [address] * (ABNORMAL) Hemoglobin A1c (11/05/2023 8:55 AM MUSIC TYPOGRAPHER) [facility] Hgb A1C 8.3(H) 4.0 - 5.6 % [facility] Estimated Average Glucose 192 mg/dL [facility] Comment: The ADA recommends reporting an estimated Average Glucose (eAG) with all Hemoglobin A1c results using the equation derived from a study of 507 normal and diabetic adults. Minority populations were underrepresented and children were not included. (Diabetes Care 31:7823-2401, 2008). The eAG is not equivalent to a fasting glucose. Blood 11/05/2023 8:55 AM MUSIC TYPOGRAPHER 11/05/2023 9:03 AM MUSIC TYPOGRAPHER Sabine Salas MANUFACTURING DESIGN ENGINEER LAB BLOOD ORDERABLES Mariama l Result Performing Organization Address [facility] Co de Phone Number [address] [address] * Hepatitis panel, acute (01/07/2023 3:31 PM CDT) [facility] Hep A IgM Nonreactive Nonreactive [facility] Comment: Interpretive Data: If Hep A IgM Ab is reported as Equivocal, a new sample should be drawn in two weeks for testing. Current interpretive data was last revised on 20. Hep B core IgM Nonreactive Nonreactive [facility] Comment: Interpretive Data If HepB Core IgM Ab is reported as Equivocal, a new sample should be drawn in two weeks for testing. Current interpretive data was last revised on 20. Hep C Ab Nonreactive Nonreactive [facility] Comment: Interpretive Data Nonreactive: Antibodies to HCV [...] last revised on 2020. HepBsAg Nonreactive [facility] Blood 01/07/2023 3:31 PM CDT 01/07/2023 3:46 PM CDT us Pritesh Villa MD LAB MICROBIOLOGY - GENERAL ORDERABLES Final Result [facility] [address] Department [place] [address] * (ABNORMAL) Serum lipid panel (01/12/2016 1:03 [...] on 07. Serum 01/12/2016 1:03 AM CDT us Gini Kumar MD LAB BLOOD ORDERABLES Final Result HISTORICAL RESULTS from Last 3 Months or Most Recently Relevant to Health Maintenance Insurance [place] CHO[place] PRF [place] [facility] Address: [address] [place] [address] MEDICARE MEDICARE SOLUTIONS MEDICARE SOLUTIONS MEDICARE SOLUTIONS Advance Directives For more information, please contact: [phone] * Full Code (Latest Code Status on File) Date Activated Date Inactivated Comments 10/30/2023 5:16 AM 11/05/2023 8:11 PM * Full Code Date Activated Date Inactivated Comments 10/29/2023 8:44 PM 10/30/2023 5:16 AM * Full Code Date Activated Date Inactivated Comments 01/06/2023 11:56 AM 01/08/2023 5:59 PM Care Teams Feed Mill Supervisor Relationship Specialty Start Date End Date Raji Bourne MD PCP - General 08/18/14
--- OUTSIDE RECORDS SUMMARY | 2024-12-12 11:42 | XMS_ITS | Encounter Summary ---
Author Organization [facility] Facility Care Team Providers Care Filing Machine Operator Name Role Phone Raji Bourne MD Primary Care Provider [phone] Encounter Details Date Type Department Care Team (Latest Contact Info) Description 02/06/2017 Orders Only [facility] CLINCONV ProviderHaroldo MD [address] [place] [address] Social History Tobacco Use Types Packs/Day Years Used Date Smoking Tobacco: Never Alcohol Use Standard Drinks/Week Comments No 0 (1 standard drink = 0.6 oz pur e alcohol) Comments Unknown Sex and Gender Information Value Date Recorded Sex Assigned at Not on file Legal Sex Female 11:58 PM MARINE SAFETY OFFICER Gender Identity Not on file Sexual Orientation Not on file documented as of this encounter Plan of Treatment Not on file documented as of this encounter Procedures Procedure Name Priority Date/Time Associated Diagnosis Comments PROCEDURE - RESULT 02/06/2017 12 :00 AM CDT PROCEDURE - RESULT 02/06/2017 12 :00 AM CDT documented in this encounter Results * PROCEDURE - RESULT (02/06/2017 12:00 AM CDT) Narrative 02/06/2017 12:00 AM CDT Ordered by an unspecified provider. us Historical Provider Final Res ult * PROCEDURE - RESULT (02/06/2017 12:00 AM CDT) Narrative 02/06/2017 12:00 AM CDT Ordered by an unspecified provider. us Historical Provider Final Res ult documented in this encounter Visit Diagnoses Not on filedocumented in this encounter Additional Health Concerns Infection Onset Date Last Indicated Resolved Time Diarrhea 11/29/2023 02/15/2024 12/13/2023 3:05 AM MARINE SAFETY OFFICER C. difficile suspected 02/15/2024 02/15/202402/14 12:03 PM CDT documented as of this encounter Care Teams Filing Machine Operator Relationship Specialty Start Date End Date Raji Bourne MD PCP - General 08/18/14 documented as of this encounter
--- OUTSIDE RECORDS SUMMARY | 2024-12-12 11:42 | XMS_ITS | Clinical Summary ---
Author Organization [facility] Address [address] [place] [address] Care Team Providers Care Gameplay Engineer Name Role Phone Unavailable Primary Care Provider Unavailabl e Social History Tobacco Use Types Packs/Day Years Used Date Smoking Tobacco: Never Assessed Comments Unknown Sex and Gender Information Value Date Recorded Sex Assigned at Not on file Legal Sex Female 12:14 PM CDT Gender Identity Not on file Sexual Orientation Not on file Plan of Treatment Health Maintenance Due Date Last Done Comments DEXA Bone Density 1955 Hepatitis C Virus (HCV) Screening 1955 Colonoscopy 2001 Colorectal Cancer Screening 2001 Cologuard 2006 Immunochemical Fecal Occult Blood 2006 Mammogram 2006 Pneumococcal Immunization (5 0+ years) (1 of 1 - PCV) 2006 Influenza Immunization (#1) 06/22/202406/22, 07/26/2019, 07/01/2015 SARS-COV-2 Immunization ( season) 2024 01/19/2021, 12/29/2020 Respiratory Syncytial Virus (RSV) Immunization (Adult) (1 - 1-dose 75+ series) 2031 DTaP/Tdap/Td Immunization Discontinued 05/01/2019 TdaP Immunization Completed 05/01/2019 Zoster Immunization Completed 09/05/2020, 07/06/2020, 05/21/2017 Hepatitis B Immunization Aged Out No longer eligible based on patient's age to complete this topic Meningococcal Immunization (ACWY) Aged Out No longer eligible based on patient's age to complete this topic Rotavirus Immunization Aged Out No lo nger eligible based on patient's age to complete this topic
--- OUTSIDE RECORDS SUMMARY | 2024-12-12 11:42 | XMS_ITS | Encounter Summary ---
Author Organization [facility] Facility Care Team Providers Care .Net Developer Name Role Phone Raji Bourne MD Primary Care Provider Encounter Details Date Type Department Care Team (Latest Contact Info) Description 03/06/2017 Orders Only [facility] CLINCONV ProviderHaroldo MD [address] [place] [address] Social History Tobacco Use Types Packs/Day Years Used Date Smoking Tobacco: Never Alcohol Use Standard Drinks/Week Comments No 0 (1 standard drink = 0.6 oz pur e alcohol) Comments Unknown Sex and Gender Information Value Date Recorded Sex Assigned at Not on file Legal Sex Female 11:58 PM HOT BILLET SHEAR OPERATOR Gender Identity Not on file Sexual Orientation Not on file documented as of this encounter Plan of Treatment Not on file documented as of this encounter Procedures Procedure Name Priority Date/Time Associated Diagnosis Comments PROCEDURE - RESULT 03/06/2017 12 :00 AM CDT PROCEDURE - RESULT 03/06/2017 12 :00 AM CDT PROCEDURE - RESULT 03/06/2017 12 :00 AM CDT PROCEDURE - RESULT 03/06/2017 12 :00 AM CDT documented in this encounter Results * PROCEDURE - RESULT (03/06/2017 12:00 AM CDT) Narrative 03/06/2017 12:00 AM CDT Ordered by an unspecified provider. [facility] Provider Final Res ult * PROCEDURE - RESULT (03/06/2017 12:00 AM CDT) Narrative 03/06/2017 12:00 AM CDT Ordered by an unspecified provider. [facility] Provider MD Final Res ult * PROCEDURE - RESULT (03/06/2017 12:00 AM CDT) Narrative 03/06/2017 12:00 AM CDT Ordered by an unspecified provider. [facility] Provider Final Res ult * PROCEDURE - RESULT (03/06/2017 12:00 AM CDT) Narrative 03/06/2017 12:00 AM CDT Ordered by an unspecified provider. [facility] Provider Final Res ult documented in this encounter Visit Diagnoses Not on filedocumented in this encounter Additional Health Concerns Infection Onset Date Last Indicated Resolved Time Diarrhea 11/29/2023 02/15/2024 12/13/2023 3:05 AM HOT BILLET SHEAR OPERATOR C. difficile suspected 02/15/2024 02/15/202402/14 12:03 PM CDT documented as of this encounter Care Teams .Net Developer Relationship Specialty Start Date End Date Raji Bourne MD PCP - General 08/18/14 documented as of this encounter
[2024-12-12 11:43] LABS: Hemoglobin A1C 7.5 % (<5.7)
--- NOTE | 2024-12-12 11:46 | ECG_ITS ---
Test Date: 2024-12-12 11:54:46 Measurements Intervals [place] Rate: 106 P: -3 CT: 148 QRS: -39 QRSD: 84 T: 2 QT: 332 QTc: 441 Interpretive Statements SINUS TACHYCARDIA LEFT AXIS DEVIATION POSSIBLE ANTERIOR MYOCARDIAL INFARCTION , OF INDETERMINATE AGE BASELINE ARTIFACT- I, III, AVR, AVL, AVF, V3 ABNORMAL ECG No previous ECG available for comparison Electronically Signed On 12-12-2024 13:16:49 OPERATIONS LOGISTICS ANALYST by Alex Steen D.O.
== END 2024-12-12 11:16 | disposition home or self-care (01) ==
LOC: ANHLAB 11:16
PROVIDERS: Visit Provider Orthopaedic Surgery
DX: R94.31 Abnormal electrocardiogram [ECG] [EKG] (principal); E11.65 Type 2 diabetes mellitus with hyperglycemia; Z79.4 Long term (current) use of insulin; I10 Essential (primary) hypertension; R53.83 Other fatigue
CPT/HCPCS: 36415; 81001; 83036; 87077; 87086; 87186; 93005

== ENCOUNTER 2025-01-16 10:14 | Outpatient (CLI) | payer MEDICARE, SELFPAY ==
--- OUTSIDE RECORDS SUMMARY | 2025-01-16 11:08 | XMS_ITS | Patient Health Record ---
Author Organization [facility] Address [address] [facility] [address] [place], [place] [id number] Care Team Providers Care Form Setter Helper Name Role Phone Jean Navarrete Unavailable [phone] Reason For Referral No Information Plan Of Treatment No Information Insurance Providers Payer Name Payer Address Payer Phone Subscriber Number Group Number Insured Name Patient Relationship to Insured Coverage Start Date Coverage End Date Li [facility] [address] [place] [address] [id number] MelendezAlee Self - patient is the insured
--- OUTSIDE RECORDS SUMMARY | 2025-01-16 11:08 | XMS_ITS | Clinical Summary ---
Author Organization [facility] Address [address] [place] [address] Care Team Providers Care Bone Plant Supervisor Name Role Phone Unavailable Primary Care Provider [...] Occult Blood 2006 Mammogram 2006 Pneumococcal Immunization (50+ years) (1 of 1 - PCV) 2006 Influenza Immunization (#1) 06/22/202406/22, 07/26/2019, 07/15/2017, Additional history exists SARS-COV-2 Immunization ( season) 2024 01/19/2021, 12/29/2020 [...]
--- OUTSIDE RECORDS SUMMARY | 2025-01-16 11:08 | XMS_ITS | Clinical Summary ---
Author Organization [facility] Address [address] [place] [address] Care Team Providers Care Manager [place] Name Role Phone Raji Bourne MD Primary Care Provider [phone] Allergies Active Allergy Reactions Criticality Noted Date [...] Units total) by mouth daily Active multivit qkhkgipw-gbyy-ZM-c alcium (THERA-M) 9 mg iron-400 mcg tabletIndications: [...] p.r.n. Assessment & Plan (11/29/2023 11:06 AM MEDICAL DETAILIST): Chronic diarrhea alternating with constipation. Patient states [...] defers Assessment & Plan (11/29/2023 11:07 AM MEDICAL DETAILIST): Chronic fecal incontinence. Patient had anorectal manometry, findings indicate weak sphincter and recommended pelvic floor therapy. -Metamucil b.i.d. -refer to pelvic floor therapy Anticoagulation goal of INR 2 to 3 11/13/2023 Assessment & Plan (11/16/2023 7:37 AM MEDICAL DETAILIST): INR 2.8. Continue coumadin 5mg daily, repeat INR 11/18 & 11/21 with HH. Assessment & Plan (11/13/2023 12:41 PM MEDICAL DETAILIST): INR 2.6. Continue Coumadin 5mg TuThSat, 6mg SuMWF. Repeat INR 11/15. Closed displaced intertrochanteric fracture of l eft femur 10/29/2023 Assessment & Plan (11/15/2023 4:26 PM MEDICAL DETAILIST): S/p on 10/30/2023 for left hip open reduction internal fixation with trochanteric nailing on the left per Dr. Wheeler. WBAT. Coumadin for DVT prop.Pain controlled with Percocet q4h PRN. Assessment & Plan (11/13/2023 12:48 PM MEDICAL DETAILIST): Ortho fu moved to 11/15. Will stop scheduled pain meds q4, change to PRN & give 1 dose Percocet qam merlyn x 10d. Continue Tyl & Flexeril PRN. Assessment & Plan (11/11/2023 9:40 AM MEDICAL DETAILIST): S/p on 10/30/2023 for left hip open [...] surveillance Assessment & Plan (11/29/2023 11:05 AM MEDICAL DETAILIST): MRI of the pancreas December 2022 with IPMN. -repeat MRI of the pancreas December 2023 for surveillance Primary hypertension 01/06/2023 Assessment & Plan (11/11/2023 9:41 AM MEDICAL DETAILIST): BP stable, pulse fluctuating. Monitor. History of DVT in adulthood 01/06/2023 RLS (restless legs syndrome) 01/06/2023 Dyslipidemia 01/06/2023 Primary osteoarthritis involving multiple joints 01/06/2023 Assessment & Plan (11/13/2023 12:44 PM MEDICAL DETAILIST): XR negative. Order Diclofenac cream. Monitor. Gastroesophageal [...] 01/06/2023 Assessment & Plan (11/11/2023 9:41 AM MEDICAL DETAILIST): No recent BS. Will monitor with BMP. [...] Type Department Care Team Description 11/26/2024 Telephone [facility] Gastroenterology at [address] [place] [id number] Quintin Belcher MD 11/18/2024 8:02 AM MEDICAL DETAILIST - 11/18/2024 11:59 PM MEDICAL DETAILIST Hospital Encounter [facility] Diagnostic Imaging [address] [place] [address] Anemia, unspecified type Discharge Disposition: Discharge to home or self care 11/11/2024 8:44 AM MEDICAL DETAILIST - 11/11/2024 11:59 PM MEDICAL DETAILIST Hospital Encounter [facility] Diagnostic Imaging [address] [place] [address] Hx of colonic polyps Discharge Disposition: Discharge [...] Date Comments Hx Other Medical RLS; Comments: [facility] 07/06/2014 - Hx Other Medical DVT; Comments: [facility] 07/06/2014 - Hypertension Hypertension Hx Other Medical diabetes; Comme nts: [facility] 07/06/2014 - Hyperlipidemia Hyperlipidemia; Comments: [facility] 07/06/2014 - Hx Other Medical OA; Comments: [facility] 07/06/2014 - Hx Other Medical DJD; Comments: [facility] 07/06/2014 - Hx Other Medical COLIN; Comments: [facility] 07/06/2014 - Hx Other Medical Gastric ulcer; Comments: [facility] 07/06/2014 - Hx Other Medical Vit B 12 def; C omments: [facility] 07/06/2014 - Hx Other Medical rotator cuff Re pair; Comments: [facility] 07/06/2014 - Hx Other Medical cervical fusion ; Comments: [facility] 07/06/2014 - Hx Other Medical hysterectomy; C omments: [facility] 07/06/2014 - Hx Other Medical ; Comm ents: [facility] 07/06/2014 - Hx Other Medical right knee repl acement; Comments: [facility] 07/06/2014 - Hx Other Medical gastric bypass; Comments: [facility] 07/06/2014 - Hx Other Medical breast biopsy; Comments: [facility] 07/06/2014 - Hx Other Medical ? TIA; Comments : [facility] 07/06/2014 - Primary hypertension 01/06/2023 History of [...] drink = 0.6 oz pur e alcohol) [facility] Utilities Answer Date Recorded In the past 12 months has e [employer], gas, oil, or water [employer] threatened to shut off services in your [...] often do you attend chur ch or zoroastrianism services? More than 4 times per year 10/30/2023 Do you belong to any clubs o r organizations such as yazidism groups, unions, fraternal or athletic groups, or [...] place to sleep or slept in a alf (including now)? No 10/30/2023 Personal Safety Answer Date Recorded Have you ever been in or are you currently in a harmful physical or emotional relationship or is someone making you feel afraid or unsafe? Denies 07/23/2024 Comments No Sex and Gender Information Value Date Recorded Sex Assigned at Not on file Legal Sex Female 11:58 PM MEDICAL DETAILIST Gender Identity Not on file Sexual Orientation [...] 07/23/2024, 02/27/2024 Medical Devices Implanted Type Area Station Installer And Repairer Device Identifier Shelf Expiration Date Model / Serial / Lot Shoulder Bilateral: Shoulder Description:Bilater Rotator cuff surgery Metal In Neck N/A: Neck Metal In Lumbar N/A: Spine Lumbar Description:L5-L6 Metal Right: Knee Synthes Tfn-Advanced 10.35mm 90mm Cannulated 3.5mm Screw Bone T-Q1po-4od 04.038.190s - [id number] Implanted:Qty: 1 on 10/30/2023 by Virginia Wheeler DO at [facility] Left: Hip Synthes I [id number] 04/20/2033 04.038.19 0S / / [id number] Synthes Tfn-Advanced Lateral Relief Cut 9mm 170mm Cannulated Femoral 04.037.912s - [id number] Implanted:Qty: 1 on 10/30/2023 by Virginia Wheeler DO at [facility] Left: Hip Synthes I [id number] 06/21/2031 04.037.91 2S / / [id number] Synthes 5mm 4.3mm 44mm Lock Self Tap Blunt Tip 2 Lead Tibial T25 Full 04.005.534s - [id number] Implanted:Qty: 1 on 10/30/2023 by Virginia Wheeler DO at [facility] Left: Hip Synthes I [id number] 09/20/2027 04.005.53 4S / / Procedures Procedure Name Priority Date/Time Associated Diagnosis Comments XR ABDOMEN AP 1 VIEW Schedule Routine, Read Routine (OP Routine) 11/18/2024 9:03 AM MEDICAL DETAILIST Anemia, unspecified type FL BARIUM ENEMA W AIR CONTRAST Schedule Routine, Read Routine (OP Routine) 11/11/2024 11:02 AM MEDICAL DETAILIST Hx of colonic polyps COLONOSCOPY 07/23/2024 7:46 AM CDT EGFR Routine 11/15/2023 11:40 AM MEDICAL DETAILIST HEMOGLOBIN A1C Routine 11/05/2023 8:55 AM MEDICAL DETAILIST HEPATITIS PANEL, ACUTE Routine 01/07/2023 3:31 PM CDT SERUM LIPID PANEL Routine 01/12/2016 1:0 3 AM CDT from Last 3 Months or Most Recently Relevant to Health Maintenance Results * XR Abdomen Ap 1 Vw (11/18/2024 9:03 AM MEDICAL DETAILIST) Anatomical Region Laterality Modality Body, Abdomen N/A Computed Radiogr aphy, Computed Radiography 11/20/2024 6:43 AM MEDICAL DETAILIST Narrative 11/20/2024 6:45 AM MEDICAL DETAILIST EXAM DESCRIPTION: XR ABDOMEN AP 1 VIEW REASON FOR STUDY: Coal Miner Image for Small Bowel Follow Thru for [...] Edgardo Mora M.D. RB T: Report ID: [id number] Reading Location: [id number] Procedure Note Edgardo Mora MD - 11/20/2024 EXAM DESCRIPTION: XR ABDOMEN AP 1 VIEW REASON FOR STUDY: Coal Miner Image for Small Bowel Follow Thru for [...] Edgardo Mora M.D. RB T: Report ID: [id number] Reading Location: [place] [address] Quintin Belcher MD IMG XR PROCEDURES Final Result * FL Barium Enema W Air Contrast (11/11/2024 11:02 AM MEDICAL DETAILIST) Anatomical Region Laterality Modality Body N/A Computed Radiogr aphy, Computed Radiography 11/11/2024 11:1 4 AM MEDICAL DETAILIST Narrative 11/11/2024 11:26 AM MEDICAL DETAILIST EXAM DESCRIPTION: FL BARIUM ENEMA W AIR CONTRAST REASON FOR STUDY: hx of colon polyps, incomplete colonoscopy due to poor prep Anemia and chronic diarrhea; patient had colonoscopy/EGD 07/23/2024, incomplete colonoscopy due to residual stool RADIATION DOSE: Dose: 71285.56 uGym2 Dose Area Product (DAP) TECHNIQUE: Following retrograde filling of the colon with barium and air, fluoroscopic spot and overhead imaging of the colon was obtained and saved to PACS. COMPARISON: None. FINDINGS: Coal Miner demonstrates successful prep. Cholecystectomy. Gastric surgery. Hysterectomy. Lumbar surgery. No filling defects. No strictures. Normal wall movement with insufflation. Sigmoid and descending diverticulosis. IMPRESSION: Diverticulosis. No suspicious abnormalities. THIS IS AN ELECTRONICALLY VERIFIED FINAL REPORT 11/11/2024 11:26 AM - Electronically signed by Teofilo ASHBY T: Report ID: [id number] Reading Location: [id number] Procedure Note Teofilo Dunn MD - 11/11/2024 EXAM DESCRIPTION: FL BARIUM ENEMA W AIR CONTRAST REASON FOR STUDY: hx of colon polyps, incomplete colonoscopy due to poor prep Anemia and chronic diarrhea; patient had colonoscopy/EGD 07/23/2024, incomplete colonoscopy due to residual stool RADIATION DOSE: Dose: 97577.56 uGym2 Dose Area Product (DAP) TECHNIQUE: Following retrograde filling of the colon with barium and air, fluoroscopic spot and overhead imaging of the colon was obtained and savedto PACS. COMPARISON: None. FINDINGS: Coal Miner demonstrates successful prep. Cholecystectomy. Gastric surgery. Hysterectomy. Lumbar surgery. No filling defects. Nostrictures. Normal wall movement with insufflation. Sigmoid and descending diverticulosis. IMPRESSION: Diverticulosis. No suspicious abnormalities. THIS IS AN ELECTRONICALLY VERIFIED FINAL REPORT 11/11/2024 11:26 AM - Electronically signed by Teofilo ASHBY T: Report ID: [id number] Reading Location: [id number] Quintin Belcher MD IMG FLUOROSCOPY PROCEDURES Final Result * Colonoscopy (07/23/2024 7:46 AM CDT) Anatomical Region Laterality Modality Other Narrative Procedure Note Quintin Belcher MD - 07/23/2024 7:46 AM CDT [facility] GI ENDOSCOPY Patient Name: Alee Sosa Procedure Date: 07/23/2024 7:46 AM Date of : 1955 Admit Type: Outpatient Age: 68 Gender: Female Attending MD: Quintin Belcher M.D. Room: [facility] ENDOSCOPY ROOM 06 Note Status: Finalized Procedure: [...] The scope was passed under direct vision.The [id number]-DE278V colonoscope was introduced through theanus and advanced [...] On: 07/23/2024 7:46 AM Recognized by the [place] [employer] for promoting quality in endoscopy Quintin Belcher MD ENDOSCOPY PROCEDURES Final Resul t * eGFR (11/15/2023 11:40 AM MEDICAL DETAILIST) eGFR 104 mL/min/1. 73 m2 MONA Comment: [...] Current interpretive data was last reviewed 2021. [facility], [address] [place] [address]., [id number] Blood 11/15/2023 11:4 0 AM MEDICAL DETAILIST 11/15/2023 11:47 AM MEDICAL DETAILIST Holly Pete THERAPEUTIC SALES SPECIALIST LAB BLOOD ORDERABLES Final Result Performing Organization Address [facility] de Phone Number [facility] [address] [place] [address] * (ABNORMAL) Hemoglobin A1c (11/05/2023 8:55 AM MEDICAL DETAILIST) [facility] [address] Hgb A1C 8.3(H) 4.0 - 5.6 % [facility] Estimated Average Glucose 192 mg/dL [facility] Comment: The ADA recommends reporting an estimated Average Glucose (eAG) with all Hemoglobin A1c results using the equation derived from a study of 507 normal and diabetic adults. Minority populations were underrepresented and children were not included. (Diabetes Care 31:4380-4083, 2008). The eAG is not equivalent to a fasting glucose. Blood 11/05/2023 8:55 AM MEDICAL DETAILIST 11/05/2023 9:03 AM MEDICAL DETAILIST Sabine Salas THERAPEUTIC SALES SPECIALIST LAB BLOOD ORDER JHONATHAN Final Result Performing Organization Address [facility] de Phone Number [facility] [address] [place] [address] * Hepatitis panel, acute (01/07/2023 3:31 PM CDT) [facility] [address] Hep A IgM Nonreactive Nonreactive [facility] Comment: Interpretive Data: If Hep A IgM Ab is reported as Equivocal, a new sample should be drawn in two weeks for testing. Current interpretive data was last revised on 20. Hep B core IgM Nonreactive Nonreactive [facility] Comment: Interpretive Data If HepB Core IgM Ab is reported as Equivocal, a new sample should be drawn in two weeks for testing. Current interpretive data was last revised on 20. Hep C Ab Nonreactive Nonreactive [facility] Comment: Interpretive Data Nonreactive: Antibodies to HCV [...] last revised on 2020. HepBsAg Nonreactive Nonreactive [facility] Blood 01/07/2023 3:31 PM CDT 01/07/2023 3:46 PM CDT Pritesh Villa MD LAB MICROBIOLOGY - GENERAL ORDERABLES Final Result [facility] [address] Department [place] [address] * (ABNORMAL) Serum lipid panel (01/12/2016 1:03 [...] us Gini Kumar MD LAB BLOOD ORDERABLES Fin al Result HISTORICAL RESULTS from Last 3 Months or Most Recently Relevant to Health Maintenance Insurance CHO[place] PR[place] [facility] MEDICARE [facility] MEDICARE [facility] Address: [address] [address] [place] [address] [employer] MEDICARE ADVANTAGE [facility] MEDICARE Address: [address] [place] [phone] [employer] MEDICARE ADVANTAGE [facility] MEDICARE Address: [address] [address] [place] [address] Advance Directives For more information, please contact: [phone] * Full Code (Latest Code Status on File) Date Activated Date Inactivated Comments 10/30/2023 5:16 AM 11/05/2023 8:11 PM * Full Code Date Activated Date Inactivated Comments 10/29/2023 8:44 PM 10/30/2023 5:16 AM * Full Code Date Activated Date Inactivated Comments 01/06/2023 11:56 AM 01/08/2023 5:59 PM Care Teams Manager [place] Relationship Specialty Start Date End Date Rjai Bourne MD PCP - General 08/18/14
--- OUTSIDE RECORDS SUMMARY | 2025-01-16 11:08 | XMS_ITS | Encounter Summary ---
Author Organization [facility] Facility Care Team Providers Care Animal Warden Name Role Phone Raji Bourne MD Primary Care Provider Encounter Details Date Type Department Care Team (Latest Contact Info) Description 02/06/2017 Orders Only [facility] CLINCONV ProviderHaroldo MD [address] [place] [address] Social History Tobacco Use Types Packs/Day Years Used Date Smoking Tobacco: Never Alcohol Use Standard Drinks/Week Comments No 0 (1 standard drink = 0.6 oz pur e alcohol) Comments Unknown Sex and Gender Information Value Date Recorded Sex Assigned at Not on file Legal Sex Female 11:58 PM DOG OBEDIENCE INSTRUCTOR Gender Identity Not on file Sexual Orientation [...] Time Diarrhea 11/29/2023 02/15/2024 12/13/2023 3:05 AM DOG OBEDIENCE INSTRUCTOR C. difficile suspected 02/15/2024 02/15/202402/14 12:03 PM CDT documented as of this encounter Care Teams Animal Warden Relationship Specialty Start Date End Date Raji Bourne MD PCP - General 08/18/14 documented as of this encounter
--- OUTSIDE RECORDS SUMMARY | 2025-01-16 11:08 | XMS_ITS | Encounter Summary ---
Author Organization [facility] Facility Care Team Providers Care Washateria Attendant Name Role Phone Raji Bourne MD Primary Care Provider Encounter Details Date Type Department Care Team (Latest Contact Info) Description 03/06/2017 Orders Only [facility] CLINCONV ProviderHaroldo MD [address] [place] [address] Social History Tobacco Use Types Packs/Day Years Used Date Smoking Tobacco: Never Alcohol Use Standard Drinks/Week Comments No 0 (1 standard drink = 0.6 oz pur e alcohol) Comments Unknown Sex and Gender Information Value Date Recorded Sex Assigned at Not on file Legal Sex Female 11:58 PM FURNACE MAINTENANCE Gender Identity Not on file Sexual Orientation [...] AM CDT Ordered by an unspecified provider. [facility] Provider Final Res ult * PROCEDURE - RESULT (03/06/2017 12:00 AM CDT) Narrative 03/06/2017 12:00 AM CDT Ordered by an unspecified provider. [facility] Provider MD Final Res ult * PROCEDURE - RESULT (03/06/2017 12:00 AM CDT) Narrative 03/06/2017 12:00 AM CDT Ordered by an unspecified provider. [facility] Provider Final Res ult * PROCEDURE - RESULT (03/06/2017 12:00 AM CDT) Narrative 03/06/2017 12:00 AM CDT Ordered by an unspecified provider. [facility] Provider Final Res ult documented in this encounter Visit Diagnoses Not on filedocumented in this encounter Additional Health Concerns Infection Onset Date Last Indicated Resolved Time Diarrhea 11/29/2023 02/15/2024 12/13/2023 3:05 AM FURNACE MAINTENANCE C. difficile suspected 02/15/2024 02/15/202402/14 12:03 PM CDT documented as of this encounter Care Teams Washateria Attendant Relationship Specialty Start Date End Date Raji Bourne MD PCP - General 08/18/14 documented as of this encounter
--- OUTSIDE RECORDS SUMMARY | 2025-01-16 11:08 | XMS_ITS | Encounter Summary ---
Author Organization [facility] Facility Care Team Providers Care Service Cashier Name Role Phone Raji Bourne MD Primary Care Provider [phone] Encounter Details Date Type Department Care Team (Latest Contact Info) Description 03/15/2017 Orders Only [facility] CLINCONV ProviderHaroldo MD [address] [place] [address] Social History Tobacco Use Types Packs/Day Years Used Date Smoking Tobacco: Never Alcohol Use Standard Drinks/Week Comments No 0 (1 standard drink = 0.6 oz pur e alcohol) Comments Unknown Sex and Gender Information Value Date Recorded Sex Assigned at Not on file Legal Sex Female 11:58 PM STRATEGIC COMMUNICATIONS SPECIALIST Gender Identity Not on file Sexual Orientation [...] Time Diarrhea 11/29/2023 02/15/2024 12/13/2023 3:05 AM STRATEGIC COMMUNICATIONS SPECIALIST C. difficile suspected 02/15/2024 02/15/202402/14 12:03 PM CDT documented as of this encounter Care Teams Service Cashier Relationship Specialty Start Date End Date Raji Bourne MD PCP - General 08/18/14 documented as of this encounter
--- OUTSIDE RECORDS SUMMARY | 2025-01-16 11:08 | XMS_ITS | Referral Summary ---
Author Organization [facility] Address [address] [place] [address] Care Team Providers Care Ammonia Print Operator Name Role Phone Raji Bourne MD Primary Care Provider [phone] Encounters Date Type Department Care Team Description 11/26/2024 Telephone [facility] [place] [address] [place] [address] [address] [place] [phone] Quintin Belcher MD 11/18/2024 8:02 AM CLOTH PRINTER HELPER - 11/18/2024 11:59 PM [facility] Hospital Encounter [facility] Diagnostic Imaging [address] [place] [address] Anemia, unspecified type Discharge Disposition: Discharge to home or self care 11/11/2024 8:44 AM CLOTH PRINTER HELPER - 11/11/2024 11:59 PM [facility] Hospital Encounter [facility] Diagnostic Imaging [address] [place] [address] Hx of colonic polyps Discharge Disposition: Discharge [...] Units total) by mouth daily Active multivit tvqkggpq-ckub-XG-c alcium (THERA-M) 9 mg iron-400 mcg tabletIndications: [...] p.r.n. Assessment & Plan (11/29/2023 11:06 AM CLOTH PRINTER HELPER): Chronic diarrhea alternating with constipation. Patient states [...] defers Assessment & Plan (11/29/2023 11:07 AM CLOTH PRINTER HELPER): Chronic fecal incontinence. Patient had anorectal manometry, findings indicate weak sphincter and recommended pelvic floor therapy. -Metamucil b.i.d. -refer to pelvic floor therapy Anticoagulation goal of INR 2 to 3 11/13/2023 Assessment & Plan (11/16/2023 7:37 AM CLOTH PRINTER HELPER): INR 2.8. Continue coumadin 5mg daily, repeat INR 11/18 & 11/21 with HH. Assessment & Plan (11/13/2023 12:41 PM CLOTH PRINTER HELPER): INR 2.6. Continue Coumadin 5mg TuThSat, 6mg SuMWF. Repeat INR 11/15. Closed displaced intertrochanteric fracture of l eft femur 10/29/2023 Assessment & Plan (11/15/2023 4:26 PM CLOTH PRINTER HELPER): S/p on 10/30/2023 for left hip open reduction internal fixation with trochanteric nailing on the left per Dr. Wheeler. WBAT. Coumadin for DVT prop.Pain controlled with Percocet q4h PRN. Assessment & Plan (11/13/2023 12:48 PM CLOTH PRINTER HELPER): Ortho fu moved to 11/15. Will stop scheduled pain meds q4, change to PRN & give 1 dose Percocet qam merlyn x 10d. Continue Tyl & Flexeril PRN. Assessment & Plan (11/11/2023 9:40 AM CLOTH PRINTER HELPER): S/p on 10/30/2023 for left hip open [...] surveillance Assessment & Plan (11/29/2023 11:05 AM CLOTH PRINTER HELPER): MRI of the pancreas December 2022 with IPMN. -repeat MRI of the pancreas December 2023 for surveillance Primary hypertension 01/06/2023 Assessment & Plan (11/11/2023 9:41 AM CLOTH PRINTER HELPER): BP stable, pulse fluctuating. Monitor. History of DVT in adulthood 01/06/2023 RLS (restless legs syndrome) 01/06/2023 Dyslipidemia 01/06/2023 Primary osteoarthritis involving multiple joints 01/06/2023 Assessment & Plan (11/13/2023 12:44 PM CLOTH PRINTER HELPER): XR negative. Order Diclofenac cream. Monitor. Gastroesophageal [...] 01/06/2023 Assessment & Plan (11/11/2023 9:41 AM CLOTH PRINTER HELPER): No recent BS. Will monitor with BMP. [...] drink = 0.6 oz pur e alcohol) [facility] Utilities Answer Date Recorded In the past 12 months has [employer], gas, oil, or water company threatened to [...] often do you attend chur ch or church services? More than 4 times per year 10/30/2023 Do you belong to any clubs o r organizations such as temple groups, unions, fraternal or athletic groups, or [...] place to sleep or slept in a fpc (including now)? No 10/30/2023 Personal Safety Answer Date Recorded Have you ever been in or are you currently in a harmful physical or emotional relationship or is someone making you feel afraid or unsafe? Denies 07/23/2024 Comments No Sex and Gender Information Value Date Recorded Sex Assigned at Not on file Legal Sex Female 11:58 PM CLOTH PRINTER HELPER Gender Identity Not on file Sexual Orientation [...] on file Medical Devices Implanted Type Area Family Life Educator Device Identifier Shelf Expiration Date Model / Serial / Lot Shoulder Bilateral: Shoulder Description:Bilater Rotator cuff surgery Metal In Neck N/A: Neck Metal In Lumbar N/A: Spine Lumbar Description:L5-L6 Metal Right: Knee Synthes Tfn-Advanced 10.35mm 90mm Cannulated 3.5mm Screw Bone [id number]-1dg 04.038.190s - [id number] Implanted:Qty: 1 on 10/30/2023 by Virginia Wheeler DO at [facility] Left: Hip Synthes I [id number] 04/20/2033 04.038.19 0S / / [id number] Synthes Tfn-Advanced Lateral Relief Cut 9mm 170mm Cannulated Femoral 04.037.912s - [id number] Implanted:Qty: 1 on 10/30/2023 by Virginia Wheeler DO at [facility] Left: Hip Synthes I [id number] 06/21/2031 04.037.91 2S / / [id number] Synthes 5mm 4.3mm 44mm Lock Self Tap Blunt Tip 2 Lead Tibial T25 Full 04.005.534s - [id number] Implanted:Qty: 1 on 10/30/2023 by Virginia Wheeler DO at [facility] Left: Hip Synthes I [id number] 09/20/2027.005.53 4S / / Procedures Procedure Name Priority Date/Time Associated Diagnosis Comments XR ABDOMEN AP 1 VIEW Schedule Routine, Read Routine (OP Routine) 11/18/2024 9:03 AM CLOTH PRINTER HELPER Anemia, unspecified type FL BARIUM ENEMA W AIR CONTRAST Schedule Routine, Read Routine (OP Routine) 11/11/2024 11:02 AM CLOTH PRINTER HELPER Hx of colonic polyps COLONOSCOPY 07/23/2024 7:46 AM CDT EGFR Routine 11/15/2023 11:40 AM CLOTH PRINTER HELPER HEMOGLOBIN A1C Routine 11/05/2023 8:55 AM CLOTH PRINTER HELPER HEPATITIS PANEL, ACUTE Routine 01/07/2023 3:31 PM CDT SERUM LIPID PANEL Routine 01/12/2016 1:0 3 AM CDT from Last 3 Months or Most Recently Relevant to Health Maintenance Results * XR Abdomen Ap 1 Vw (11/18/2024 9:03 AM CLOTH PRINTER HELPER) Anatomical Region Laterality Modality Body, Abdomen N/A Computed Radiogr aphy, Computed Radiography 11/20/2024 6:43 AM CLOTH PRINTER HELPER Narrative 11/20/2024 6:45 AM CLOTH PRINTER HELPER EXAM DESCRIPTION: XR ABDOMEN AP 1 VIEW REASON FOR STUDY: Electric Meter Tester Shop Image for Small Bowel Follow Thru for [...] Edgardo Mora M.D. RB T: Report ID: [id number] Reading Location: [id number] Procedure Note Edgardo Mora MD - 11/20/2024 EXAM DESCRIPTION: XR ABDOMEN AP 1 VIEW REASON FOR STUDY: Electric Meter Tester [employer] Image for Small Bowel Follow Thru for [...] Edgardo Mora M.D. RB T: Report ID: [id number] Reading Location: [id number] Quintin Belcher MD IMG XR PROCEDURES Final Result * FL Barium Enema W Air Contrast (11/11/2024 11:02 AM CLOTH PRINTER HELPER) Anatomical Region Laterality Modality Body N/A Computed Radiogr aphy, Computed Radiography 11/11/2024 11:1 4 AM CLOTH PRINTER HELPER Narrative 11/11/2024 11:26 AM CLOTH PRINTER HELPER EXAM DESCRIPTION: FL BARIUM ENEMA W AIR CONTRAST REASON FOR STUDY: hx of colon polyps, incomplete colonoscopy due to poor prep Anemia and chronic diarrhea; patient had colonoscopy/EGD 07/23/2024, incomplete colonoscopy due to residual stool RADIATION DOSE: Dose: 36532.56 uGym2 Dose Area Product (DAP) TECHNIQUE: Following retrograde filling of the colon with barium and air, fluoroscopic spot and overhead imaging of the colon was obtained and saved to PACS. COMPARISON: None. FINDINGS: Electric Meter Tester Shop demonstrates successful prep. Cholecystectomy. Gastric surgery. Hysterectomy. Lumbar surgery. No filling defects. No strictures. Normal wall movement with insufflation. Sigmoid and descending diverticulosis. IMPRESSION: Diverticulosis. No suspicious abnormalities. THIS IS AN ELECTRONICALLY VERIFIED FINAL REPORT 11/11/2024 11:26 AM - Electronically signed by Teofilo ASHBY T: Report ID: [id number] Reading Location: [place] [address] Procedure Note Teofilo Dunn MD - 11/11/2024 EXAM DESCRIPTION: FL BARIUM ENEMA W AIR CONTRAST REASON FOR STUDY: hx of colon polyps, incomplete colonoscopy due to poor prep Anemia and chronic diarrhea; patient had colonoscopy/EGD 07/23/2024, incomplete colonoscopy due to residual stool RADIATION DOSE: Dose: 13993.56 uGym2 Dose Area Product (DAP) TECHNIQUE: Following retrograde filling of the colon with barium and air, fluoroscopic spot and overhead imaging of the colon was obtained and savedto PACS. COMPARISON: None. FINDINGS: Electric Meter Tester Shop demonstrates successful prep. Cholecystectomy. Gastric surgery. Hysterectomy. Lumbar surgery. No filling defects. Nostrictures. Normal wall movement with insufflation. Sigmoid and descending diverticulosis. IMPRESSION: Diverticulosis. No suspicious abnormalities. THIS IS AN ELECTRONICALLY VERIFIED FINAL REPORT 11/11/2024 11:26 AM - Electronically signed by Teofilo ASHBY T: Report ID: [id number] Reading Location: [place] [address] Quintin Belcher MD IM FLUOROSCOPY PROCEDURES Final Result * Colonoscopy (07/23/2024 7:46 AM CDT) Anatomical Region Laterality Modality Other Narrative Procedure Note Quintin Belcher MD - 07/23/2024 7:46 AM CDT [facility] END[facility] Patient Name: Alee Sosa Procedure Date: 07/23/2024 7:46 AM Date of : 1955 Admit Type: Outpatient Age: 68 Gender: Female Attending MD: Quintin Belcher M.D. Room: [facility] ENDOSCOPY ROOM 06 Note Status: [...] The scope was passed under direct vision.The [id number]-YM810I colonoscope was introduced through theanus and advanced [...] On: 07/23/2024 7:46 AM Recognized by the [place] [employer] for promoting quality in endoscopy Quintin Belcher MD ENDOSCOPY PROCEDURES Final Resul t * eGFR (11/15/2023 11:40 AM CLOTH PRINTER HELPER) eGFR 104 mL/min/1. 73 m2 MONA MAY [...] Current interpretive data was last reviewed 2021. [facility], [address] [place] [address]., [id number] Blood 11/15/2023 11:4 0 AM CLOTH PRINTER HELPER 11/15/2023 11:47 AM CLOTH PRINTER HELPER Holly Pete SPEECH ASSISTANT LAB BLOOD ORDERABLES Final Result Performing Organization Address [facility] Co de Phone Number [facility] [address] [place] [address] * (ABNORMAL) Hemoglobin A1c (11/05/2023 8:55 AM CLOTH PRINTER HELPER) [facility] Hgb A1C 8.3(H) 4.0 - 5.6 % [facility] Estimated Average Glucose 192 mg/dL [facility] Comment: The ADA recommends reporting an estimated Average Glucose (eAG) with all Hemoglobin A1c results using the equation derived from a study of 507 normal and diabetic adults. Minority populations were underrepresented and children were not included. (Diabetes Care 31:9487-1916, 2008). The eAG is not equivalent to a fasting glucose. Blood 11/05/2023 8:55 AM CLOTH PRINTER HELPER 11/05/2023 9:03 AM CLOTH PRINTER HELPER Sabine Salas SPEECH ASSISTANT LAB BLOOD ORDER JHONATHAN Final Result Performing Organization Address [facility] de Phone Number [place] [id number] [place] [address] * Hepatitis panel, acute (01/07/2023 3:31 PM CDT) [facility] Hep A IgM Nonreactive Nonreactive [facility] Comment: Interpretive Data: If Hep A IgM Ab is reported as Equivocal, a new sample should be drawn in two weeks for testing. Current interpretive data was last revised on 20. Hep B core IgM Nonreactive Nonreactive [facility] Comment: Interpretive Data If HepB Core IgM Ab is reported as Equivocal, a new sample should be drawn in two weeks for testing. Current interpretive data was last revised on 20. Hep C Ab Nonreactive Nonreactive [facility] Comment: Interpretive Data Nonreactive: Antibodies to [...] last revised on 2020. HepBsAg Nonreactive [facility]reactive [facility] Blood 01/07/2023 3:31 PM CDT 01/07/2023 3:46 PM CDT Pritesh Villa MD LAB MICROBIOLOGY - GENERAL ORDERABLES Final Result [facility] [address] [place] [address] * (ABNORMAL) Serum lipid panel (01/12/2016 1:03 [...] Maintenance Insurance BL CHOICE PRF [place] [facility] ACCESS MEDICARE [facility] MEDICARE ADVANTAGE UHC MEDICARE ADVANTAGE UHC MEDICARE ADVANTAGE Advance Directives For more information, please contact: [phone] * Full Code (Latest Code Status on File) Date Activated Date Inactivated Comments 10/30/2023 5:16 AM 11/05/2023 8:11 PM * Full Code Date Activated Date Inactivated Comments 10/29/2023 8:44 PM 10/30/2023 5:16 AM * Full Code Date Activated Date Inactivated Comments 01/06/2023 11:56 AM 01/08/2023 5:59 PM Care Teams Ammonia Print Operator Relationship Specialty Start Date End Date Raji Bourne MD PCP - General 08/18/14
--- OUTSIDE RECORDS SUMMARY | 2025-01-16 11:08 | XMS_ITS | Clinical Summary ---
Author Organization [facility] Address [address] [place] [address] Care Team Providers Care Facing Baster Jumpbasting Name Role Phone Raji Bourne MD Primary Care Provider [phone] Allergies Active Allergy Reactions Criticality Noted Date [...] 3 Active fluticasone propionate (FLONASE) 50 mcg/spray [place], Suspension nasal inhaler Administer 2 Sprays in [...] on file Legal Sex Female 7:05 PM LINER ROLL CHANGER Gender Identity Not on file Sexual Orientation [...] VACCINES (1 - Tdap) 1974 PNEUMOCOCCAL VACCINE 50+ YEARS (1 of 2 - PCV) 08/18/19 [...] 07/10/2023 01/07/2023 INFLUENZA VACCINE (#1) 2024 Insurance [facility] DUAL COMPLETE CHOICE PPO [facility] [id number] Care Teams Facing Baster Jumpbasting Relationship Specialty Start Date End Date Raji Bourne MD [address] [place] [phone] PCP - General Family Practice 04/11/23
[2025-01-16 13:53] LABS: Thyroid Stimulating Hormone 0.172 uIU/mL (0.465-4.680)
== END 2025-01-16 10:15 | disposition home or self-care (01) ==
PROVIDERS: PCP Family Medicine; Visit Provider Physician Assistant Medical
DX: E05.90 Thyrotoxicosis, unspecified without thyrotoxic crisis or storm (principal)
CPT/HCPCS: 36415; 84443

== ENCOUNTER 2025-03-18 15:19 | Outpatient (CLI) | payer MEDICARE, SELFPAY ==
--- NOTE | ~2025-03-18 | CT_ITS ---
EXAMINATION: CT thoracic spine wo con DATE: 03/18/2025 15:55 INDICATION: Thoracic spine pain TECHNIQUE: Computed tomography (CT) of the thoracic spine was performed without intravenous contrast. Automated exposure control and iterative reconstruction technique were employed. The dose-length pro duct was 1040.62 mGy-cm. COMPARISON: Thoracic spine radiographs dated 04/18/[address] abdomen and pelvis dated 06/04/2023 FINDINGS: 12 degrees upper thoracic levocurvature curvature. Sagittal alignment is normal. C5-C6 anterior spina l fusion with anterior plate and screw fixation. Chronic mild anterior wedging with 20% anterior vert ebral body height loss at T11 and T12. Minimal vertebral body heights are normal. No acute fracture. Severe disc height loss with degenerative endplate changes at C7-T1, T3-T4 through T9-T10 as well as at T11-T12 and T12-L1. Moderate disc height loss at T10-T11 and mild disc height loss at T2-T3. Multi level facet osteoarthritis, moderate to severe at the lower cervical and upper most thoracic spine an d mild to moderate throughout the mid to lower thoracic spine. Small disc protrusions or small stable helper ior endplate osteophytes contributing to multilevel minimal to mild central canal stenosis throughout the thoracic spine most prominent at T7-T8, T8-T9, T10-T11 and T11-T12. There is also multilevel rachel ral foraminal stenosis, moderate bilaterally at C6-C7 and C7-T1 and on the left at T2-T3 and T9-T10. Minimal to mild neural from stenosis at the remaining bilateral thoracic levels. Benign 8 mm rim calc ified nodule at the right-sided the thyroid isthmus. Postoperative change of prior gastric bypass pro cedure. Calcified lesion at the medial limb of the left adrenal gland likely sequela prior infection or hemorrhage. Scarring in the subcutaneous tissues posterior to T12 and L1 likely related to a nonvi sualized posterior spinal fusion as seen on the prior CT of the abdomen. Paravertebral soft tissues a re otherwise unremarkable. Dependent atelectasis in the visualized portions of the lower lungs. IMPRESSION: 1. Severe thoracic spondylosis and chronic mild anterior wedging at T11 and T12.. No acute osseous ab normality. 2. Severe lower cervical spondylosis with C5-C6 instrumented anterior spinal fusion. Reviewed, dictated and finalized at location A. IMPRESSION: 1. Severe thoracic spondylosis and chronic mild anterior wedging at T11 and T12 .. No acute osseous abnormality. 2. Severe lower cervical spondylosis with C5-C6 instrumented anterior spinal fu kathy.
--- OUTSIDE RECORDS SUMMARY | 2025-03-18 15:24 | XMS_ITS | Encounter Summary ---
Author Organization [facility] Facility Care Team Providers Care Entry Level Project Coordinator Name Role Phone Raji Bourne MD Primary Care Provider Encounter Details Date Type Department Care Team (Latest Contact Info) Description 03/06/2017 Orders Only [facility]INCON[facility] ProviderHaroldo MD [address] [place] [address] Social History Tobacco Use Types Packs/Day Years Used Date Smoking Tobacco: Never Alcohol Use Standard Drinks/Week Comments No 0 (1 standard drink = 0.6 oz pur e alcohol) Comments Unknown Sex and Gender Information Value Date Recorded Sex Assigned at Not on file Legal Sex Female 11:58 PM TACK PULLER MACHINE Gender Identity Not on file Sexual Orientation [...] AM CDT Ordered by an unspecified provider. [facility] Provider Final Res ult * PROCEDURE - RESULT (03/06/2017 12:00 AM CDT) Narrative 03/06/2017 12:00 AM CDT Ordered by an unspecified provider. [facility] Provider MD Final Res ult * PROCEDURE - RESULT (03/06/2017 12:00 AM CDT) Narrative 03/06/2017 12:00 AM CDT Ordered by an unspecified provider. [facility] Provider Final Res ult * PROCEDURE - RESULT (03/06/2017 12:00 AM CDT) Narrative 03/06/2017 12:00 AM CDT Ordered by an unspecified provider. [facility] Provider Final Res ult documented in this encounter Visit Diagnoses Not on filedocumented in this encounter Additional Health Concerns Infection Onset Date Last Indicated Resolved Time Diarrhea 11/29/2023 02/15/2024 12/13/2023 3:05 AM TACK PULLER MACHINE C. difficile suspected 02/15/2024 02/15/202402/14 12:03 PM CDT documented as of this encounter Care Teams Entry Level Project Coordinator Relationship Specialty Start Date End Date Raji Bourne MD PCP - General 08/18/14 documented as of this encounter
--- OUTSIDE RECORDS SUMMARY | 2025-03-18 15:24 | XMS_ITS | Referral Summary ---
Author Organization [facility] Address [address] [place] [address] Care Team Providers Care Second Worker Name Role Phone Raji Bourne MD Primary Care Provider Encounters Date Type Department Care Team Description 01/30/2025 8:00 AM CDT Office Visit [facility] Gastroenterology at [address] [place] [address] Quintin Belcher MD IPMN (intraductal papillary mucinous neoplasm) (Primary Dx); Anemia, unspecified type; Diarrhea, unspecified type; Incontinence of feces, unspecified fecal incontinence type; Gastroesophageal reflux disease without esophagitis; Family history of esophageal cancer from Last 3 Months Allergies Active Allergy [...] Units total) by mouth daily Active multivit mrgdykmw-aled-OU-c alcium (THERA-M) 9 mg iron-400 mcg tabletIndications: [...] as needed for pain 10 tablet 11/15/19 Active warfarin (COUMADIN) 5 mg tabletIndications: Venous Thrombosis,atrial fibrillation Take 1 tablet (5 mg total) by mouth daily 11/16/19 24 Active Additional Information Patient not taking.Reported on 01/30/2025 warfarin (COUMADIN) 1 mg tablet Take 1 tablet (1 mg total) by mouth daily 11/25/19 24 Active clindamycin (CLEOCIN) 300 mg capsule TAKE 1 CAPSULE BY MOUTH EVERY 8 HOURS FOR 10 DAYS 12/24/19 Active apixaban (ELIQUIS) 5 mg tablet Take 1 tablet (5 mg total) by mouth 2 (two) times a day Active omeprazole (PriLOSEC) 40 mg capsule Take 1 capsule (40 mg total) by mouth daily Active Active Problems Problem Noted Date Diagnosed Date Anemia 05/29/2024 Assessment & Plan (01/30/2025 8:23 AM CDT): Chronic anemia since December 2022. Colonoscopy February 2024 with poor prep, multiple tubular adenomas, diverticulosis, and internal hemorrhoids. Random colon biopsies were unremarkable. EGD and colonoscopy July 2024 with irregular Z-line, history of gastric bypass, gastritis, poor prep, multiple tubular adenomas, diverticulosis, and internal hemorrhoids. Subsequent barium enema was unremarkable. Patient unable to tolerate small bowel series. -Order capsule endoscopy for further evaluation of anemia -The risks (risks of bleeding, infection, perforation or capsule retention requiring surgery, missed polyps/cancer), benefits, and alternatives of the planned procedure were explained to the patient who understands and consents to having procedure done. Assessment & Plan (05/29/2024 12:26 PM CDT): [...] cyst 11/29/2023 Diarrhea 11/29/2023 Assessment & Plan (01/30/2025 8:16 AM CDT): Has chronic constipation overflow diarrhea. -high-fiber diet -recommend Metamucil b.i.d. -MiraLax OTC p.r.n. Assessment & Plan (05/29/2024 12:25 PM CDT): Has chronic constipation overflow diarrhea. -high-fiber diet -recommend Metamucil b.i.d. -MiraLax OTC p.r.n. Assessment & Plan (11/29/2023 11:06 AM COLORED LIQUID PLASTIC APPLIER): Chronic diarrhea alternating with constipation. Patient states last colonoscopy several years ago, no records available for review. -we will order labs and stool studies for further evaluation -schedule colonoscopy Incontinence of feces 11/29/2023 Assessment & Plan (01/30/2025 8:16 AM CDT): Chronic fecal incontinence. Patient had anorectal manometry, findings indicate weak sphincter and recommended pelvic floor therapy. -Metamucil b.i.d. -Kegel exercises discussed -discuss referral for pelvic floor therapy, patient defers Assessment & Plan (05/29/2024 12:27 PM CDT): Chronic fecal incontinence. Patient had anorectal manometry, findings indicate weak sphincter and recommended pelvic floor therapy. -Metamucil b.i.d. -Kegel exercises discussed -discuss referral for pelvic floor therapy, patient defers Assessment & Plan (11/29/2023 11:07 AM COLORED LIQUID PLASTIC APPLIER): Chronic fecal incontinence. Patient had anorectal manometry, findings indicate weak sphincter and recommended pelvic floor therapy. -Metamucil b.i.d. -refer to pelvic floor therapy Anticoagulation goal of INR 2 to 3 11/13/2023 Assessment & Plan (11/16/2023 7:37 AM COLORED LIQUID PLASTIC APPLIER): INR 2.8. Continue coumadin 5mg daily, repeat INR 11/18 & 11/21 with HH. Assessment & Plan (11/13/2023 12:41 PM COLORED LIQUID PLASTIC APPLIER): INR 2.6. Continue Coumadin 5mg TuThSat, 6mg SuMWF. Repeat INR 11/15. Closed displaced intertrochanteric fracture of l eft femur 10/29/2023 Assessment & Plan (11/15/2023 4:26 PM COLORED LIQUID PLASTIC APPLIER): S/p on 10/30/2023 for left hip open reduction internal fixation with trochanteric nailing on the left per Dr. Wheeler. WBAT. Coumadin for DVT prop.Pain controlled with Percocet q4h PRN. Assessment & Plan (11/13/2023 12:48 PM COLORED LIQUID PLASTIC APPLIER): Ortho fu moved to 11/15. Will stop scheduled pain meds q4, change to PRN & give 1 dose Percocet qam merlyn x 10d. Continue Tyl & Flexeril PRN. Assessment & Plan (11/11/2023 9:40 AM COLORED LIQUID PLASTIC APPLIER): S/p on 10/30/2023 for left hip open reduction internal fixation with trochanteric nailing on the left per Dr. Wheeler. WBAT. Coumadin for DVT prop.Pain controlled with Percocet q4h merlyn & Tyl PRN. Monitor for abiility to change schedule dosing. History of pulmonary embolism 10/29/2023 History of migraine headaches 10/29/2023 Depression 10/29/2023 IPMN (intraductal papillary mucinous neoplasm) 0 01/08/2023 Assessment & Plan (01/30/2025 8:24 AM CDT): MRI of the pancreas December 2022 with IPMN. 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 -Order MRI of the pancreas for surveillance Assessment & Plan (05/29/2024 12:17 PM CDT): [...] surveillance Assessment & Plan (11/29/2023 11:05 AM COLORED LIQUID PLASTIC APPLIER): MRI of the pancreas December 2022 with IPMN. -repeat MRI of the pancreas December 2023 for surveillance Primary hypertension 01/06/2023 Assessment & Plan (11/11/2023 9:41 AM COLORED LIQUID PLASTIC APPLIER): BP stable, pulse fluctuating. Monitor. History of DVT in adulthood 01/06/2023 RLS (restless legs syndrome) 01/06/2023 Dyslipidemia 01/06/2023 Primary osteoarthritis involving multiple joints 01/06/2023 Assessment & Plan (11/13/2023 12:44 PM COLORED LIQUID PLASTIC APPLIER): XR negative. Order Diclofenac cream. Monitor. Gastroesophageal reflux disease without esophagi tis 01/06/2023 Assessment & Plan (01/30/2025 8:16 AM CDT): Chronic GERD, well-controlled with omeprazole 40 mg p.o. daily. -continue omeprazole 40 mg p.o. daily -RECOMMENDATIONS given include: anti-reflux maneuvers, Avoid acidic foods like oranges and tomatoes., avoidance of spicy foods, avoid eating 3-4 hours before bed, elevation of the head of the bed, and weight loss Assessment & Plan (05/29/2024 12:24 PM CDT): [...] 01/06/2023 Assessment & Plan (11/11/2023 9:41 AM COLORED LIQUID PLASTIC APPLIER): No recent BS. Will monitor with BMP. [...] Date Smoking Tobacco: Never Smokeless Tobacco: Never Tobacco Cessation:Counseling Given: Not Answered Alcohol Use Standard Drinks/Week Comments No 0 (1 standard drink = 0.6 oz pur e alcohol) [facility] Utilities Answer Date Recorded In the past 12 months has [employer], gas, oil, or water [employer] threatened to shut off services in your [...] week 10/30/2023 How often do you attend [facility] or faith services? More than 4 times per year [...] place to sleep or slept in a half-way (including now)? No 10/30/2023 Personal Safety Answer Date Recorded Have you ever been in or are you currently in a harmful physical or emotional relationship or is someone making you feel afraid or unsafe? Denies 07/23/2024 Comments No Sex and Gender Information Value Date Recorded Sex Assigned at Not on file Legal Sex Female 11:58 PM COLORED LIQUID PLASTIC APPLIER Gender Identity Not on file Sexual Orientation Not on file Last Filed Vital Signs Vital Sign Reading Time Taken Comments Blood Pressure 148/93 01/30/2025 8:09 AM CDT Pulse 103 01/30/2025 8:09 AM CDT Temperature 36.4 C (97.5 F) 07/23/2024 8:17 AM CDT Respiratory Rate 17 07/23/2024 8:49 AM CDT Oxygen Saturation 95% 07/23/2024 8:49 AM CDT Inhaled Oxygen Concentration - - Weight 82.8 kg (182 lb 8 oz) 01/30/2025 8:09 AM CDT Height 165.1 cm (5' 5) 01/30/2025 8:09 AM CDT Body Mass Index 30.37 01/30/2025 8:09 AM CDT Plan of Treatment Not on file Medical Devices Implanted Type Area Quirk Sander Device Identifier Shelf Expiration Date Model / Serial / Lot Shoulder Bilateral: Shoulder Description:Bilater Rotator cuff surgery Metal In Neck N/A: Neck Metal In Lumbar N/A: Spine Lumbar Description:L5-L6 Metal Right: Knee Synthes Tfn-Advanced 10.35mm 90mm Cannulated 3.5mm Screw Bone T-L1kd-8ow 04.038.190s - [id number] Implanted:Qty: 1 on 10/30/2023 by Virginia Wheeler DO at [facility] Left: Hip Synthes I [id number] 04/20/2033 04.038.19 0S / / [id number] Synthes Tfn-Advanced Lateral Relief Cut 9mm 170mm Cannulated Femoral 04.037.912s - [id number] Implanted:Qty: 1 on 10/30/2023 by Virginia Wheeler DO at [facility] Left: Hip Synthes I [id number] 06/21/2031 04.037.91 2S / / [id number] Synthes 5mm 4.3mm 44mm Lock Self Tap Blunt Tip 2 Lead Tibial T25 Full 04.005.534s - [id number] Implanted:Qty: 1 on 10/30/2023 by Virginia Wheeler DO at [facility] Left: Hip Synthes I [id number] 09/20/2027 04.005.53 4S / / Procedures Procedure Name Priority Date/Time Associated Diagnosis Comments COLONOSCOPY 07/23/2024 7:46 AM CDT EGFR Routine 11/15/2023 11:40 AM COLORED LIQUID PLASTIC APPLIER HEMOGLOBIN A1C Routine 11/05/2023 8:55 AM COLORED LIQUID PLASTIC APPLIER HEPATITIS PANEL, ACUTE Routine 01/07/2023 3:31 PM CDT SERUM LIPID PANEL Routine 01/12/2016 1:0 3 AM CDT from Last 3 Months or Most Recently Relevant to Health Maintenance Results * Colonoscopy (07/23/2024 7:46 AM CDT) Anatomical Region Laterality Modality Other Narrative Procedure Note Quintin Belcher MD - 07/23/2024 7:46 AM CDT [facility] ER GI ENDOSCOPY Patient Name: Alee Sosa Procedure Date: 07/23/2024 7:46 AM Date of : 1955 Admit Type: Outpatient Age: 68 Gender: Female Attending MD: Quintin Belcher M.D. Room: [facility] ENDOSCOPY ROOM 06 Note Status: [...] The scope was passed under direct vision.The [id number] colonoscope was introduced through theanus and advanced [...] On: 07/23/2024 7:46 AM Recognized by the [employer] for promoting quality in endoscopy us Quintin Belcher MD ENDOSCOPY PROCEDURES Final Resul t * eGFR (11/15/2023 11:40 AM COLORED LIQUID PLASTIC APPLIER) eGFR 104 mL/min/1. 73 m2 MONA MAY [...] of Race in Diagnosing Kidney Disease, JASN 2020). The CKD-EPI equation should not be used for patients with unstable renal function and has not been validated in children and those over 70. Current interpretive data was last reviewed 2021. [facility], [address] [place] [address]., [id number] Blood 11/15/2023 11:4 0 AM COLORED LIQUID PLASTIC APPLIER 11/15/2023 11:47 AM COLORED LIQUID PLASTIC APPLIER Holly Pete RETURNING OFFICER LAB BLOOD ORDERABLES Final Result Performing Organization Address [facility] de Phone Number [address] [place] [address] * (ABNORMAL) Hemoglobin A1c (11/05/2023 8:55 AM COLORED LIQUID PLASTIC APPLIER) Hgb A1C 8.3(H) 4.0 - 5.6 % MONA Estimated Average Glucose 192 mg/dL MONA Comment: The ADA recommends reporting an estimated Average Glucose (eAG) with all Hemoglobin A1c results using the equation derived from a study of 507 normal and diabetic adults. Minority populations were underrepresented and children were not included. (Diabetes Care 31:6631-4716, 2008). The eAG is not equivalent to a fasting glucose. Blood 11/05/2023 8:55 AM COLORED LIQUID PLASTIC APPLIER 11/05/2023 9:03 AM COLORED LIQUID PLASTIC APPLIER Sabine Salas RETURNING OFFICER LAB BLOOD ORDER JHONATHAN Final Result Performing Organization Address [facility] Co de Phone Number [address] [place] [address] * Hepatitis panel, acute (01/07/2023 3:31 PM CDT) Hep A IgM Nonreactive Nonreactive [facility] Comment: Interpretive Data: If Hep A IgM Ab is reported as Equivocal, a new sample should be drawn in two weeks for testing. Current interpretive data was last revised on 20. Hep B core IgM Nonreactive Nonreactive [facility] Comment: Interpretive Data If HepB [...] last revised on 2020. HepBsAg Nonreactive Nonreactive [facility] Blood 01/07/2023 3:31 PM CDT 01/07/2023 3:46 PM CDT Pritesh Villa MD LAB MICROBIOLOGY - GENERAL ORDERABLES Final Result [facility] [address] Department [place] [address] * (ABNORMAL) Serum lipid panel (01/12/2016 1:03 AM CDT) Pathologist [facility] Cholesterol 80 0 - 200 mg/dl HISTORICAL [...] CDT Gini Kumar MD LAB BLOOD ORDERABLES Fin al Result HISTORICAL RESULTS from Last 3 Months or Most Recently Relevant to Health Maintenance Insurance BL CHOICE PRF P[place] [facility] ACCESS MEDICARE [facility] MEDICARE ADVANTAGE [facility] MEDICARE ADVANTAGE [facility] MEDICARE ADVANTAGE Advance Directives For more information, please contact: [phone] * Full Code (Latest Code Status on File) Date Activated Date Inactivated Comments 10/30/2023 5:16 AM 11/05/2023 8:11 PM * Full Code Date Activated Date Inactivated Comments 10/29/2023 8:44 PM 10/30/2023 5:16 AM * Full Code Date Activated Date Inactivated Comments 01/06/2023 11:56 AM 01/08/2023 5:59 PM Care Teams Second Worker Relationship Specialty Start Date End Date Raji Bourne MD PCP - General 08/18/14
--- OUTSIDE RECORDS SUMMARY | 2025-03-18 15:24 | XMS_ITS | Encounter Summary ---
Author Organization [facility] Care Team Providers Care Washery Engineer Name Role Phone Raji Bourne MD Primary Care Provider Encounter Details Date Type Department Care Team (Latest Contact Info) Description 03/15/2017 Orders Only [facility] CLINCONV ProviderHaroldo MD [address] [place] [id number] Social History Tobacco Use Types Packs/Day Years Used Date Smoking Tobacco: Never Alcohol Use Standard Drinks/Week Comments No 0 (1 standard drink = 0.6 oz pur e alcohol) Comments Unknown Sex and Gender Information Value Date Recorded Sex Assigned at Not on file Legal Sex Female 11:58 PM TRANSPORTATION PROJECT MANAGER Gender Identity Not on file Sexual Orientation [...] Time Diarrhea 11/29/2023 02/15/2024 12/13/2023 3:05 AM TRANSPORTATION PROJECT MANAGER C. difficile suspected 02/15/2024 02/15/202402/14 12:03 PM CDT documented as of this encounter Care Teams Washery Engineer Relationship Specialty Start Date End Date Raji Bourne MD PCP - General 08/18/14 documented as of this encounter
--- OUTSIDE RECORDS SUMMARY | 2025-03-18 15:24 | XMS_ITS | Clinical Summary ---
Author Organization [facility] Address [address] [place] [address] Care Team Providers Care Fuel Efficient Automobile Designer Name Role Phone Raji Bourne MD Primary Care Provider [phone] Allergies Active Allergy Reactions Criticality Noted Date [...] Units total) by mouth daily Active multivit fynmwrqc-tlya-MK-c alcium (THERA-M) 9 mg iron-400 mcg tabletIndications: [...] p.r.n. Assessment & Plan (11/29/2023 11:06 AM AUDIO VISUAL COLLECTIONS COORDINATOR): Chronic diarrhea alternating with constipation. Patient states [...] defers Assessment & Plan (11/29/2023 11:07 AM AUDIO VISUAL COLLECTIONS COORDINATOR): Chronic fecal incontinence. Patient had anorectal manometry, findings indicate weak sphincter and recommended pelvic floor therapy. -Metamucil b.i.d. -refer to pelvic floor therapy Anticoagulation goal of INR 2 to 3 11/13/2023 Assessment & Plan (11/16/2023 7:37 AM AUDIO VISUAL COLLECTIONS COORDINATOR): INR 2.8. Continue coumadin 5mg daily, repeat INR 11/18 & 11/21 with HH. Assessment & Plan (11/13/2023 12:41 PM AUDIO VISUAL COLLECTIONS COORDINATOR): INR 2.6. Continue Coumadin 5mg TuThSat, 6mg SuMWF. Repeat INR 11/15. Closed displaced intertrochanteric fracture of l eft femur 10/29/2023 Assessment & Plan (11/15/2023 4:26 PM AUDIO VISUAL COLLECTIONS COORDINATOR): S/p on 10/30/2023 for left hip open reduction internal fixation with trochanteric nailing on the left per Dr. Wheeler. WBAT. Coumadin for DVT prop.Pain controlled with Percocet q4h PRN. Assessment & Plan (11/13/2023 12:48 PM AUDIO VISUAL COLLECTIONS COORDINATOR): Ortho fu moved to 11/15. Will stop scheduled pain meds q4, change to PRN & give 1 dose Percocet qam merlyn x 10d. Continue Tyl & Flexeril PRN. Assessment & Plan (11/11/2023 9:40 AM AUDIO VISUAL COLLECTIONS COORDINATOR): S/p on 10/30/2023 for left hip open [...] surveillance Assessment & Plan (11/29/2023 11:05 AM AUDIO VISUAL COLLECTIONS COORDINATOR): MRI of the pancreas December 2022 with IPMN. -repeat MRI of the pancreas December 2023 for surveillance Primary hypertension 01/06/2023 Assessment & Plan (11/11/2023 9:41 AM AUDIO VISUAL COLLECTIONS COORDINATOR): BP stable, pulse fluctuating. Monitor. History of DVT in adulthood 01/06/2023 RLS (restless legs syndrome) 01/06/2023 Dyslipidemia 01/06/2023 Primary osteoarthritis involving multiple joints 01/06/2023 Assessment & Plan (11/13/2023 12:44 PM AUDIO VISUAL COLLECTIONS COORDINATOR): XR negative. Order Diclofenac cream. Monitor. Gastroesophageal [...] 01/06/2023 Assessment & Plan (11/11/2023 9:41 AM AUDIO VISUAL COLLECTIONS COORDINATOR): No recent BS. Will monitor with BMP. [...] Description 01/30/2025 8:00 AM CDT Office Visit [facility] at [address] [place] [phone] Quintin Belcher MD IPMN (intraductal papillary mucinous neoplasm) (Primary Dx); Anemia, unspecified type; Diarrhea, unspecified type; Incontinence of feces, unspecified fecal incontinence type; Gastroesophageal reflux disease without esophagitis; Family history of esophageal cancer from Last 3 Months Immunizations Immunization Administration [...] Date Comments Hx Other Medical RLS; Comments: [facility] 07/06/2014 - Hx Other Medical DVT; Comments: [facility] 07/06/2014 - Hypertension Hypertension Hx Other Medical diabetes; Comme nts: [facility] 07/06/2014 - Hyperlipidemia Hyperlipidemia; Comments: [facility] 07/06/2014 - Hx Other Medical OA; Comments: [facility] 07/06/2014 - Hx Other Medical DJD; Comments: [facility] 07/06/2014 - Hx Other Medical COLIN; Comments: [facility] 07/06/2014 - Hx Other Medical Gastric ulcer; Comments: [facility] 07/06/2014 - Hx Other Medical Vit B 12 def; C omments: [facility] 07/06/2014 - Hx Other Medical rotator cuff Re pair; Comments: [facility] 07/06/2014 - Hx Other Medical cervical fusion ; Comments: [facility] 07/06/2014 - Hx Other Medical hysterectomy; C omments: [facility] 07/06/2014 - Hx Other Medical ; Comm ents: [facility] 07/06/2014 - Hx Other Medical right knee repl acement; Comments: [facility] 07/06/2014 - Hx Other Medical gastric bypass; Comments: [facility] 07/06/2014 - Hx Other Medical breast biopsy; Comments: [facility] 07/06/2014 - Hx Other Medical ? TIA; Comments : [facility] 07/06/2014 - Primary hypertension 01/06/2023 History [...] 0.6 oz pur e alcohol) [facility] Utilities Answer Date Recorded In the past 12 months has [employer], gas, oil, or water [employer] threatened to shut off services in your [...] any clubs o r organizations such as hinduism groups, unions, fraternal or athletic groups, or [...] on file Legal Sex Female 11:58 PM AUDIO VISUAL COLLECTIONS COORDINATOR Gender Identity Not on file Sexual Orientation [...] 01/30/2025 8:09 AM CDT Plan of Treatment Health Maintenance [...] Hemoglobin A1C 05/05/2024 11/05/2023, 01/07/2023 Covid-19 Vaccine ( - 2023-2 5 season) 2024 09/13/2021, 01/19/2021, 12/29/2020 eGFR 11/15/2024 11/15/2023, 10/22, 11/04/2023, Additional history exists Influenza Vaccine (Season Ended) 2025 07/24/2022, 09/02/2021, 07/06/2020, Additional history exists Fall Risk Assessment 07/23/2025 [...] 07/23/2024, 02/27/2024 Medical Devices Implanted Type Area Dining Services Manager Device Identifier Shelf Expiration Date Model / Serial / Lot Shoulder Bilateral: Shoulder Description:Bilater Rotator cuff surgery Metal In Neck N/A: Neck Metal In Lumbar N/A: Spine Lumbar Description:L5-L6 Metal Right: Knee Synthes Tfn-Advanced 10.35mm 90mm Cannulated 3.5mm Screw Bone [id number] 04.038.190s - [id number] Implanted:Qty: 1 on 10/30/2023 by Virginia Wheeler DO at [facility] Left: Hip Synthes I [id number] 04/20/2033 04.038.19 0S / / [id number] Synthes Tfn-Advanced Lateral Relief Cut 9mm 170mm Cannulated Femoral 04.037.912s - [id number] Implanted:Qty: 1 on 10/30/2023 by Virginia Wheeler DO at [facility] Left: Hip Synthes I [id number] 06/21/2031 04.037.91 2S / / [id number] Synthes 5mm 4.3mm 44mm Lock Self Tap Blunt Tip 2 Lead Tibial T25 Full 04.005.534s - [id number] Implanted:Qty: 1 on 10/30/2023 by Virginia Wheeler DO at [facility] Left: Hip Synthes I [id number] 09/20/2027 04.005.53 4S / / Procedures Procedure Name Priority Date/Time Associated Diagnosis Comments COLONOSCOPY 07/23/2024 7:46 AM CDT EGFR Routine 11/15/2023 11:40 AM AUDIO VISUAL COLLECTIONS COORDINATOR HEMOGLOBIN A1C Routine 11/05/2023 8:55 AM AUDIO VISUAL COLLECTIONS COORDINATOR HEPATITIS PANEL, ACUTE Routine 01/07/2023 3:31 PM CDT SERUM LIPID PANEL Routine 01/12/2016 1:0 3 AM CDT from Last 3 Months or Most Recently Relevant to Health Maintenance Results * Colonoscopy (07/23/2024 7:46 AM CDT) Anatomical Region Laterality Modality Other Narrative Procedure Note Quintin Belcher MD - 07/23/2024 7:46 AM CDT [facility] Patient Name: Alee Sosa Procedure Date: 07/23/2024 7:46 AM Date of : 1955 Admit Type: Outpatient Age: 68 Gender: Female Attending MD: Quintin Belcher M.D. Room: [facility] ENDOSCOPY ROOM 06 Note [...] The scope was passed under direct vision.The [id number]-[id number] colonoscope was introduced through theanus and advanced [...] On: 07/23/2024 7:46 AM Recognized by the [employer] for promoting quality in endoscopy us Quintin Belcher MD ENDOSCOPY PROCEDURES Final Resul t * eGFR (11/15/2023 11:40 AM AUDIO VISUAL COLLECTIONS COORDINATOR) eGFR 104 mL/min/1. 73 m2 MONA MAY [...] Current interpretive data was last reviewed 2021. [address] [address] Blood 11/15/2023 11:4 0 AM AUDIO VISUAL COLLECTIONS COORDINATOR 11/15/2023 11:47 AM AUDIO VISUAL COLLECTIONS COORDINATOR Holly Pete PROGRESSIVE CARE UNIT REGISTERED NURSE LAB BLOOD ORDERABLES Final Result Performing Organization Address [facility] de Phone Number [address] [facility] [place] [address] * (ABNORMAL) Hemoglobin A1c (11/05/2023 8:55 AM AUDIO VISUAL COLLECTIONS COORDINATOR) Pathologist [facility] Hgb A1C 8.3(H) 4.0 - 5.6 % MONA Estimated Average Glucose 192 mg/dL MONA Comment: The ADA recommends reporting an estimated Average Glucose (eAG) with all Hemoglobin A1c results using the equation derived from a study of 507 normal and diabetic adults. Minority populations were underrepresented and children were not included. (Diabetes Care 31:5152-5169, 2008). The eAG is not equivalent to a fasting glucose. Blood 11/05/2023 8:55 AM AUDIO VISUAL COLLECTIONS COORDINATOR 11/05/2023 9:03 AM AUDIO VISUAL COLLECTIONS COORDINATOR Sabine Salas PROGRESSIVE CARE UNIT REGISTERED NURSE LAB BLOOD ORDER JHONATHAN Final Result Performing Organization Address [facility] de Phone Number [address] [address] * Hepatitis panel, acute (01/07/2023 3:31 PM CDT) Pathologist [facility] Hep A IgM Nonreactive Nonreactive [facility] Comment: Interpretive Data: If Hep A IgM Ab is reported as Equivocal, a new sample should be drawn in two weeks for testing. Current interpretive data was last revised on 20. Hep B core IgM Nonreactive Nonreactive [facility] Comment: Interpretive Data If HepB Core IgM Ab is reported as Equivocal, a new sample should be drawn in two weeks for testing. Current interpretive data was last revised on 20. Hep C Ab Nonreactive Nonreactive [facility] Comment: Interpretive Data Nonreactive: Antibodies to HCV [...] last revised on 2020. HepBsAg Nonreactive Nonreactive [facility] Blood 01/07/2023 3:31 PM CDT 01/07/2023 3:46 PM CDT Pritesh Villa MD LAB MICROBIOLOGY - GENERAL ORDERABLES Final Result [facility] [address] Department [place] [address] * (ABNORMAL) Serum lipid panel (01/12/2016 1:03 [...] Maintenance Insurance BL CHOICE PRF [place] ANTH ACCESS Member Subscriber Plan / Payer (Ef fective 2018-Present) Name:Alee Sosa Relation to Subscriber:Self Name:ALEE SOSA Payer ID:[id number] (NAIC) Type:[facility] Address: [address] [place] [id number] MEDIC[facility] MEDICARE ADVANTAGE [facility] MEDICARE ADVANTAGE [facility] MEDICARE ADVANTAGE Advance Directives For more information, please contact: [phone] * Full Code (Latest Code Status on File) Date Activated Date Inactivated Comments 10/30/2023 5:16 AM 11/05/2023 8:11 PM * Full Code Date Activated Date Inactivated Comments 10/29/2023 8:44 PM 10/30/2023 5:16 AM * Full Code Date Activated Date Inactivated Comments 01/06/2023 11:56 AM 01/08/2023 5:59 PM Care Teams Fuel Efficient Automobile Designer Relationship Specialty Start Date End Date Raji Bourne MD PCP - General 08/18/14
--- OUTSIDE RECORDS SUMMARY | 2025-03-18 15:24 | XMS_ITS | Patient Health Record ---
Author Organization [facility] Address [address] [facility] [address] [place], [place] [id number] Care Team Providers Care Presales Engineer Name Role Phone Jean Navarrete Unavailable [phone] Reason For Referral No Information Plan Of Treatment No Information Insurance Providers Payer Name Payer Address Payer Phone Subscriber Number Group Number Insured Name Patient Relationship to Insured Coverage Start Date Coverage End Date Li [facility] [address] [place] [address] [id number] Alee Melendez Self - patient is the insured
--- OUTSIDE RECORDS SUMMARY | 2025-03-18 15:24 | XMS_ITS | Encounter Summary ---
Author Organization [facility] Care Team Providers Care Digital Strategy Director Name Role Phone Raji Bourne MD Primary Care Provider [phone] Encounter Details Date Type Department Care Team (Latest Contact Info) Description 02/06/2017 Orders Only [facility] CLINCONV ProviderHaroldo MD [address] [place] [address] Social History Tobacco Use Types Packs/Day Years Used Date Smoking Tobacco: Never Alcohol Use Standard Drinks/Week Comments No 0 (1 standard drink = 0.6 oz pur e alcohol) Comments Unknown Sex and Gender Information Value Date Recorded Sex Assigned at Not on file Legal Sex Female 11:58 PM FLOWER CHENILLER Gender Identity Not on file Sexual Orientation [...] Time Diarrhea 11/29/2023 02/15/2024 12/13/2023 3:05 AM FLOWER CHENILLER C. difficile suspected 02/15/2024 02/15/202402/14 12:03 PM CDT documented as of this encounter Care Teams Digital Strategy Director Relationship Specialty Start Date End Date Raji Bourne MD PCP - General 08/18/14 documented as of this encounter
--- OUTSIDE RECORDS SUMMARY | 2025-03-18 15:24 | XMS_ITS | Clinical Summary ---
Author Organization [facility] Address [address] [place] [address] Care Team Providers Care Vaccines Solutions Specialist Name Role Phone Unavailable Primary Care Provider [...]
--- OUTSIDE RECORDS SUMMARY | 2025-03-18 15:24 | XMS_ITS | Clinical Summary ---
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 [id number] PCP - General Family Practice 04/11/23
== END 2025-03-18 15:20 | disposition home or self-care (01) ==
PROVIDERS: PCP Family Medicine; Visit Provider Nurse Practitioner Family
DX: M54.6 Pain in thoracic spine (principal); M47.814 Spondylosis without myelopathy or radiculopathy, thoracic region; M48.54XA Collapsed vertebra, not elsewhere classified, thoracic region, initial encounter for fracture; M47.812 Spondylosis without myelopathy or radiculopathy, cervical region; Z98.1 Arthrodesis status
CPT/HCPCS: 72128

== ENCOUNTER 2025-08-08 09:24 | Outpatient (CLI) | payer MEDICARE, SELFPAY ==
[2025-08-08 09:46] LABS: Hematocrit 48.2 % (37.0-47.0); Hemoglobin 15.3 g/dL (12.0-15.0); Immature Granulocyte Percent A 0.9 % (0-0.5); Lymphocytes Absolute Auto 1.24 K/mm3 (0.9-3.2); Mean Corpuscular HGB Conc 31.7 g/dl (32-36); Mean Corpuscular Hemoglobin 30.5 pg (26-34); Mean Corpuscular Volume 96.0 fl (80-100); Nucleated Red Blood Cells Absolute Auto 0.000 K/mm3 (0.0-0.012); Nucleated Red Blood Cells Perc 0.0 % (0.0-0.2); Platelet Count Result 300 k/mm3 (150-375); Red Blood Count 5.02 M/mm3 (4.2-5.4); White Blood Count 7.7 K/mm3 (4.5-10.0)
[2025-08-08 10:04] LABS: Alanine Aminotransferase 40 U/L (6-35); Albumin Level 4.3 g/dL (3.5-5.1); Alkaline Phosphatase 86 U/L (38-126); Anion Gap 9 mmol/L (4-12); Aspartate Amino Transferase 34 U/L (14-36); Bilirubin,Total 0.4 mg/dL (0.2-1.3); Blood Urea Nitrogen 18 mg/dL (7-17); Calcium 9.0 mg/dL (8.4-10.2); Carbon Dioxide 27 mmol/L (22-30); Chloride 100 mmol/L (98-107); Estimated Glomerular Filt Rate > 60; Glucose 169 mg/dL (65-110); Iron 103 ug/dL (37-170); Potassium 4.3 mmol/L (3.4-5.0); Sodium 136 mmol/L (137-145); Total Protein 6.8 g/dL (6.3-8.2)
[2025-08-08 10:13] LABS: MALB Creatinine Ratio < 38.2 mg/g (0-30)
[2025-08-08 10:13] LABS: Percent Iron Saturation 36 % (20-50)
[2025-08-08 10:23] LABS: Free T4 Free Thyroxine 1.06 ng/dL (0.78-2.19)
[2025-08-08 10:40] LABS: Thyroid Stimulating Hormone 0.459 uIU/mL (0.465-4.680)
[2025-08-08 10:47] LABS: Ferritin 30.30 ng/mL (11.1-264)
[2025-08-08 10:59] LABS: Vitamin B12 819.0 pg/mL (239-931)
== END 2025-08-08 09:25 | disposition home or self-care (01) ==
LOC: ANHLAB 09:26
PROVIDERS: PCP Family Medicine; Visit Provider Family Medicine
DX: D50.9 Iron deficiency anemia, unspecified (principal); I10 Essential (primary) hypertension; E03.9 Hypothyroidism, unspecified; E55.9 Vitamin D deficiency, unspecified; J40 Bronchitis, not specified as acute or chronic; E11.65 Type 2 diabetes mellitus with hyperglycemia; Z79.4 Long term (current) use of insulin; E53.8 Deficiency of other specified B group vitamins
CPT/HCPCS: 36415; 80053; 82043; 82306; 82607; 82728; 83540; 83550; 84439; 84443; 85025